=== PATIENT | female | born 1950 | race Caucasian/White ===

== ENCOUNTER 2020-02-16 09:28 | Outpatient (REF) | payer OTHER, SELFPAY ==
[2020-02-16 11:30] LABS: MANUAL DIFF FLAG NO
[2020-02-16 11:50] LABS: Basophils Absolute Auto 0.1 X10*3/uL (0.0-0.2); Basophils Percent Auto 0.7 % (0-2); Eosinophils Absolute Auto 0.3 X10*3/uL (0.0-0.4); Eosinophils Percent Auto 3.2 % (0-4); Hematocrit 42.3 % (37-47); Hemoglobin 13.1 g/dl (12.0-16.0); Imm Gran Abs Auto 0.07 X10*3/uL (0.00-0.03); Imm Gran Pct Auto 0.8 % (0.0-0.4); Lymphocytes Absolute Auto 1.4 X10*3/uL (1.2-4.9); Lymphocytes Percent Auto 15.3 % (20-40); Mean Corpuscular Volume 96.8 fL (80-98); Mean Platelet Volume 12.3 fL (9.4-12.3); Monocytes Absolute Auto 0.6 X10*3/uL (0.1-1.2); Neutrophils Absolute Auto 6.8 X10*3/uL (2.0-8.3); Platelet Count 213 X10*3/uL (160-400); Red Blood Count 4.37 X10*6/uL (4.20-5.50); Red Cell Distribution Width 13.5 % (11.0-16.0); White Blood Count 9.1 X10*3/uL (4.8-10.8)
== END 2020-02-16 09:29 | disposition home or self-care (01) ==
LOC: HO.LAB 09:28
PROVIDERS: PCP Internal Medicine; Visit Provider Internal Medicine Pulmonary Disease
DX: J44.9 Chronic obstructive pulmonary disease, unspecified (principal); Z91.09 Other allergy status, other than to drugs and biological substances; G47.33 Obstructive sleep apnea (adult) (pediatric)
CPT/HCPCS: 36415; 82785; 85025; 86003

== ENCOUNTER → 2020-05-11 08:35 | Outpatient (BNVA) | payer OTHER, SELFPAY | PROVIDERS: PCP Internal Medicine; Visit Provider Internal Medicine Pulmonary Disease ==

== ENCOUNTER → 2020-06-15 08:52 | Outpatient (BNVA) | payer OTHER, SELFPAY | PROVIDERS: PCP Internal Medicine; Visit Provider Internal Medicine Pulmonary Disease ==

== ENCOUNTER → 2020-10-20 09:05 | Outpatient (BNVA) | payer OTHER, SELFPAY | PROVIDERS: PCP Internal Medicine; Visit Provider Internal Medicine Pulmonary Disease ==

== ENCOUNTER → 2021-05-17 13:00 | Outpatient (BNVA) | payer OTHER, SELFPAY | PROVIDERS: PCP Internal Medicine; Visit Provider Internal Medicine Pulmonary Disease ==

== ENCOUNTER → 2021-11-22 12:51 | Outpatient (BNVA) | payer OTHER, SELFPAY | PROVIDERS: PCP Internal Medicine; Visit Provider Internal Medicine Pulmonary Disease | DX: J45.50 Severe persistent asthma, uncomplicated (principal); Z91.09 Other allergy status, other than to drugs and biological substances | CPT/HCPCS: 94640 ==

== ENCOUNTER 2022-04-04 12:48 | Outpatient (REF) | payer OTHER, SELFPAY ==
[2022-04-04 13:39] LABS: MANUAL DIFF FLAG NO
[2022-04-04 13:50] LABS: Basophils Absolute Auto 0.1 X10*3/uL (0.0-0.2); Basophils Percent Auto 0.7 % (0-2); Eosinophils Absolute Auto 0.2 X10*3/uL (0.0-0.4); Hemoglobin 13.5 g/dl (12.0-16.0); Imm Gran Abs Auto 0.02 X10*3/uL (0.00-0.03); Imm Gran Pct Auto 0.2 % (0.0-0.4); Lymphocytes Absolute Auto 1.6 X10*3/uL (1.2-4.9); Lymphocytes Percent Auto 18.6 % (20-40); Mean Corpuscular HGB Conc 31.4 g/dl (31.0-35.0); Mean Corpuscular Hemoglobin 30.5 pg (27.0-33.0); Mean Corpuscular Volume 97.1 fL (80.0-98.0); Mean Platelet Volume 11.5 fL (9.4-12.3); Monocytes Absolute Auto 0.7 X10*3/uL (0.1-1.2); Monocytes Percent Auto 7.5 % (2-11); Neutrophils Absolute Auto 6.3 x10*3/uL (2.0-8.3); Platelet Count 221 X10*3/uL (160-400); Red Blood Count 4.43 X10*6/uL (4.20-5.50); Red Cell Distribution Width 13.3 % (11.0-16.0); White Blood Count 8.8 X10*3/uL (4.8-10.8)
== END 2022-04-04 12:49 | disposition home or self-care (01) ==
LOC: HO.LAB 12:48
PROVIDERS: PCP Internal Medicine; Visit Provider Internal Medicine Pulmonary Disease
DX: J45.50 Severe persistent asthma, uncomplicated (principal); Z91.09 Other allergy status, other than to drugs and biological substances
CPT/HCPCS: 36415; 82785; 85025; 86003

== ENCOUNTER 2022-05-05 12:23 | Outpatient (REF) | payer OTHER, SELFPAY | END 2022-05-05 12:24 | disposition home or self-care (01) | LOC: HO.MDS 12:23 | PROVIDERS: Visit Provider Internal Medicine Pulmonary Disease | DX: J45.50 Severe persistent asthma, uncomplicated (principal) | CPT/HCPCS: 96372; J2357 ==

== ENCOUNTER 2022-06-02 14:46 | Outpatient (REF) | payer OTHER, SELFPAY | END 2022-06-02 14:47 | disposition home or self-care (01) | LOC: HO.MDS 14:46 | PROVIDERS: Visit Provider Internal Medicine Pulmonary Disease | DX: J45.50 Severe persistent asthma, uncomplicated (principal) | CPT/HCPCS: 96372; J2357 ==

== ENCOUNTER 2022-06-30 14:43 | Outpatient (REF) | payer OTHER, SELFPAY | END 2022-06-30 14:44 | disposition home or self-care (01) | LOC: HO.MDS 14:43 | PROVIDERS: Visit Provider Internal Medicine Pulmonary Disease | DX: J45.50 Severe persistent asthma, uncomplicated (principal) | CPT/HCPCS: 96372; J2357 ==

== ENCOUNTER 2022-07-28 14:52 | Outpatient (REF) | payer OTHER, SELFPAY | END 2022-07-28 14:53 | disposition home or self-care (01) | LOC: HO.MDS 14:52 | PROVIDERS: Visit Provider Internal Medicine Pulmonary Disease | DX: J45.50 Severe persistent asthma, uncomplicated (principal) | CPT/HCPCS: 96372; J2357 ==

== ENCOUNTER 2022-08-25 14:49 | Outpatient (REF) | payer OTHER, SELFPAY | END 2022-08-25 14:50 | disposition home or self-care (01) | LOC: HO.MDS 14:49 | PROVIDERS: Visit Provider Internal Medicine Pulmonary Disease | DX: J45.50 Severe persistent asthma, uncomplicated (principal) | CPT/HCPCS: 96372; J2357 ==

== ENCOUNTER → 2022-08-29 08:54 | Outpatient (BNVA) | payer OTHER, SELFPAY | PROVIDERS: PCP Internal Medicine; Visit Provider Internal Medicine Pulmonary Disease | DX: J45.50 Severe persistent asthma, uncomplicated (principal); Z91.09 Other allergy status, other than to drugs and biological substances ==

== ENCOUNTER 2022-09-28 10:02 | Outpatient (AMB) | payer OTHER, SELFPAY ==
--- NOTE | 2022-09-28 10:09 | MHC.OFFVIS ---
Intake Vital Signs 09/28/22 10:11 Height 5 ft 5 in Weight 200 lb BMI 33.3 BP 112/80 Pulse 102 H Pulse Oximetry (%) 93 Intake Visit Reasons: COPD Intake Note: pt was on a 7 day course of prednisone and was advice to stop injections. she continues to use advair and her O2 STAT have been 93-95. Allergies No Known Allergies Allergy (Verified 09/28/22 10:10) HPI COPD HPI Details 72-year-old lady nonsmoker, followed for mild CINDY intolerant of CPAP, dyspnea on exertion, diastolic dysfunction, environmental allergies, and moderate persistent asthma.? She continues to use Advair 500, albuterol MDI, Singulair, and Flonase with reasonable baseline control of his symptoms.? She had negative cardiac workup.? Patient was tried on Xolair, however she derived no symptomatic benefit and discontinued it. After the last office visit patient was started on hydroxyzine for air trapping with significant improvement in her symptoms. Review of Systems Const Denies daytime sleepiness, Denies excessive sweating, Denies fatigue, Denies fever(s), Denies lethargy, Denies malaise, Denies night sweats, Denies snoring and Denies weight loss Eyes Denies blurry vision and Denies itchy eyes ENT Denies nasal congestion, Denies post nasal drip, Denies sinus pain, Denies sinus pressure and Denies other ( Thrush) Card Denies chest pain, Denies pedal edema, Denies dyspnea, Denies orthopnea and Denies paroxysmal nocturnal dyspnea Resp Denies cough, Denies hemoptysis, Denies excessive phlegm production, Denies dyspnea, Denies snoring and Denies wheezing GI Denies abdominal pain and Denies heartburn Musc Denies myalgias, Denies arthralgias and Denies joint swelling Skin/Breast Denies rash Neuro Denies memory loss and Denies seizure-like activity Psych Denies abnormal sleep pattern, Denies anxiety and Denies memory loss Endo Denies excessive sweating, Denies fatigue and Denies heat intolerance Joe/Lymph Denies easy bruising Aller/Immun Denies itchy eyes, Denies seasonal rhinorrhea and Denies wheezing Physical Exam Vital Signs: Last Vital Signs Pulse 102 H 09/28/22 10:11 BP 112/80 09/28/22 10:11 Pulse Ox 93 09/28/22 10:11 BMI result Body Mass Index 33.3 Const General: no acute distress and alert Nutritional Appearance: obese Orientation/consciousness: Other orientation findings ( oriented) HEENT Head: Yes atraumatic Eyes General: appearance normal, both eyes and all related structures Sclerae: sclerae normal EOM: EOMs intact bilaterally Neck Neck: Yes supple Lymphatic: no lymphadenopathy noted Resp Effort & Inspection: normal respiratory effort and no use of accessory muscles Auscultation: clear to auscultation bilaterally Cardio Rate: regular rate Rhythm: regular rhythm Heart sounds: no gallops, no murmurs and no rubs Skin General skin exam: other ( warm) Extrem General: No clubbing, No cyanosis and No edema Assessment & Plan Assessment & Plan (1) Severe persistent asthma: Code(s): J45.50 - Severe persistent asthma, uncomplicated Plan: Significantly improved control with improvement in atropine on hydroxyzine. Continue Advair, duo nebs, and albuterol MDI. (2) Environmental allergies: Code(s): Z91.09 - Other allergy status, other than to drugs and biological substances Plan: No response to Xolair. Continue on Singulair. Coding Level of Care Code Est Pt Level 4 (49438) Diagnoses Severe persistent asthma J45.50 Environmental allergies Z91.09
[2022-09-28 10:11] VITALS: BP 112/80; PULSE 102; O2SAT 93; BMI 33.3
== END 2022-09-28 11:18 | disposition home or self-care (01) ==
PROVIDERS: PCP Internal Medicine; Visit Provider Internal Medicine Pulmonary Disease
DX: J45.50 Severe persistent asthma, uncomplicated (principal); Z91.09 Other allergy status, other than to drugs and biological substances
CPT/HCPCS: 99214

== ENCOUNTER → 2022-09-28 10:02 | Outpatient (BNVA) | payer OTHER, SELFPAY | PROVIDERS: PCP Internal Medicine; Visit Provider Internal Medicine Pulmonary Disease | DX: J45.50 Severe persistent asthma, uncomplicated (principal); Z91.09 Other allergy status, other than to drugs and biological substances ==

== ENCOUNTER 2023-04-05 13:24 | Outpatient (AMB) | payer OTHER, SELFPAY ==
[2023-04-05 13:34] VITALS: BP 116/62; PULSE 78; O2SAT 93; BMI 30.6
--- NOTE | 2023-04-05 13:34 | MHC.OFFVIS ---
Intake Vital Signs 04/05/23 13:34 Height 5 ft 5 in Weight 184 lb 1.376 oz BMI 30.6 BP 116/62 Blood Pressure Location Lt brachial Position Sitting Pulse 78 Pulse Source Pulse Oximeter Pulse Oximetry (%) 93 Oxygen Delivery Method Room Air Intake Visit Reasons: COPD Ocean Fishing Guide Required: No Fur Blowing Machine Attendant: Fur Blowing Machine Attendant offered & declined Accompanied by: Self / Same As Patient Allergies No Known Allergies Allergy (Verified 04/05/23 13:38) Medication List - Last Reconciled 04/05/23 by Yulia Carrasco LPN albuterol sulfate 90 mcg/actuation 2 puffs PO Q6H PRN escitalopram oxalate 5 mg PO DAILY fluticasone propion-salmeterol 500-50 mcg/dose (Advair Diskus) 1 ea PO BID fluticasone propionate 50 mcg/actuation 1 spray intranasal DAILY hydrochlorothiazide 25 mg PO DAILY ipratropium-albuterol 0.5 mg-3 mg(2.5 mg base)/3 mL 3 mL inhalation Q4-6H PRN 30 days lorazepam 0.5 mg PO DAILY PRN montelukast 10 mg PO DAILY HPI COPD HPI Details 72-year-old lady nonsmoker, followed for mild CINDY intolerant of CPAP, dyspnea on exertion, diastolic dysfunction, environmental allergies, and moderate persistent asthma.? She continues to use Advair 500, albuterol MDI, Singulair, and Flonase with good control of his symptoms.? She had negative cardiac workup.? Patient was tried on Xolair, however she derived no symptomatic benefit and discontinued it. After the last office visit she is intentionally lost 20 lb by dieting with significant improvement in her respiratory symptoms. She denies any recent exacerbations. PENDING SALE TO [facility] Social History (Updated 04/05/23 @ 13:42 by Yulia Carrasco LPN) Patient Tobacco Use Status: Former Tobacco user Tobacco use type: Cigarette Review of Systems Const Denies daytime sleepiness, Denies excessive sweating, Denies fatigue, Denies fever(s), Denies lethargy, Denies malaise, Denies night sweats, Denies snoring and Denies weight loss Eyes Denies blurry vision and Denies itchy eyes ENT Denies nasal congestion, Denies post nasal drip, Denies sinus pain, Denies sinus pressure and Denies other ( Thrush) Card Denies chest pain, Denies pedal edema, Denies dyspnea, Denies orthopnea and Denies paroxysmal nocturnal dyspnea Resp Denies cough, Denies hemoptysis, Denies excessive phlegm production, Denies dyspnea, Denies snoring and Denies wheezing GI Denies abdominal pain and Denies heartburn Musc Denies myalgias, Denies arthralgias and Denies joint swelling Skin/Breast Denies rash Neuro Denies memory loss and Denies seizure-like activity Psych Denies abnormal sleep pattern, Denies anxiety and Denies memory loss Endo Denies excessive sweating, Denies fatigue and Denies heat intolerance Joe/Lymph Denies easy bruising Aller/Immun Denies itchy eyes, Denies seasonal rhinorrhea and Denies wheezing Physical Exam Vital Signs: Last Vital Signs Pulse 78 04/05/23 13:34 BP 116/62 04/05/23 13:34 Pulse Ox 93 04/05/23 13:34 Oxygen Delivery Method Room Air 04/05/23 13:34 BMI result Body Mass Index 30.6 Const General: no acute distress and alert Nutritional Appearance: not obese Orientation/consciousness: Other orientation findings ( oriented) HEENT Head: Yes atraumatic Eyes General: appearance normal, both eyes and all related structures Sclerae: sclerae normal EOM: EOMs intact bilaterally Neck Neck: Yes supple Lymphatic: no lymphadenopathy noted Resp Effort & Inspection: normal respiratory effort and no use of accessory muscles Auscultation: clear to auscultation bilaterally Cardio Rate: regular rate Rhythm: regular rhythm Heart sounds: no gallops, no murmurs and no rubs Skin General skin exam: other ( warm) Extrem General: No clubbing, No cyanosis and No edema Assessment & Plan Assessment & Plan (1) Severe persistent asthma: Code(s): J45.50 - Severe persistent asthma, uncomplicated Plan: Well controlled on current regimen of Advair, duo nebs, and albuterol MDI. Continue current regimen. Coding Level of Care Code Est Pt Level 3 (40243) Diagnoses Severe persistent asthma J45.50
== END 2023-04-05 13:51 | disposition home or self-care (01) ==
PROVIDERS: PCP Internal Medicine; Visit Provider Internal Medicine Pulmonary Disease
DX: J45.50 Severe persistent asthma, uncomplicated (principal)
CPT/HCPCS: 99213

== ENCOUNTER → 2023-04-05 13:24 | Outpatient (BNVA) | payer OTHER, SELFPAY | PROVIDERS: PCP Internal Medicine; Visit Provider Internal Medicine Pulmonary Disease | DX: J45.50 Severe persistent asthma, uncomplicated (principal); Z91.09 Other allergy status, other than to drugs and biological substances ==

== ENCOUNTER 2023-10-05 13:02 | Outpatient (AMB) | payer OTHER, SELFPAY ==
[2023-10-05 13:08] VITALS: BP 138/79; PULSE 85; O2SAT 90; BMI 27.8
--- NOTE | 2023-10-05 13:08 | A.OFFVIS_ITS ---
Vital Signs 10/05/23 13:08 Height 5 ft 5 in Weight 167 lb BMI 27.8 BP 138/79 Blood Pressure Location Rt brachial Position Sitting Pulse 85 Pulse Source Doppler Pulse Oximetry (%) 90 L Oxygen Delivery Method Room Air Intake Visit Reasons: COPD Allergies No Known Allergies Allergy (Verified 04/05/23 13:38) HPI HPI COPD: Details: 73-year-old lady nonsmoker, followed for mild CINDY intolerant of CPAP, dyspnea on exertion, diastolic dysfunction, environmental allergies, and moderate persistent asthma.? She continues to use Advair 500, albuterol MDI, Singulair, and Flonase with good control of his symptoms.? She had negative cardiac workup.? Patient was tried on Xolair, however she derived no symptomatic benefit and discontinued it. She continues to intentional is rate common approximately 35 lb. His symptoms are well controlled on Wixela, duo nebs, and albuterol MDI. [facility] Social History (Updated 04/05/23 @ 13:42 by Yulia Carrasco LPN) Patient Tobacco Use Status: Former Tobacco user Tobacco use type: Cigarette Review of Systems Const Denies daytime sleepiness, Denies excessive sweating, Denies fatigue, Denies fever(s), Denies lethargy, Denies malaise, Denies night sweats, Denies snoring and Denies weight loss Eyes Denies blurry vision and Denies itchy eyes ENT Denies nasal congestion, Denies post nasal drip, Denies sinus pain, Denies sinus pressure and Denies other ( Thrush) Card Denies chest pain, Denies pedal edema, Denies dyspnea, Denies orthopnea and Denies paroxysmal nocturnal dyspnea Resp Denies cough, Denies hemoptysis, Denies excessive phlegm production, Denies dyspnea, Denies snoring and Denies wheezing GI Denies abdominal pain and Denies heartburn Musc Denies myalgias, Denies arthralgias and Denies joint swelling Skin/Breast Denies rash Neuro Denies memory loss and Denies seizure-like activity Psych Denies abnormal sleep pattern, Denies anxiety and Denies memory loss Endo Denies excessive sweating, Denies fatigue and Denies heat intolerance Joe/Lymph Denies easy bruising Aller/Immun Denies itchy eyes, Denies seasonal rhinorrhea and Denies wheezing Physical Exam Vital Signs: Last Vital Signs Pulse 85 10/05/23 13:08 BP 138/79 10/05/23 13:08 Pulse Ox 90 L 10/05/23 13:08 Oxygen Delivery Method Room Air 10/05/23 13:08 BMI result Body Mass Index 27.8 Const General: no acute distress and alert Nutritional Appearance: not obese Orientation/consciousness: Other orientation findings ( oriented) HEENT Head: Yes atraumatic Eyes General: appearance normal, both eyes and all related structures Sclerae: sclerae normal EOM: EOMs intact bilaterally Neck Neck: Yes supple Lymphatic: no lymphadenopathy noted Resp Effort & Inspection: normal respiratory effort and no use of accessory muscles Auscultation: clear to auscultation bilaterally Cardio Rate: regular rate Rhythm: regular rhythm Heart sounds: no gallops, no murmurs and no rubs Skin General skin exam: other ( warm) Extrem General: No clubbing, No cyanosis and No edema Assessment & Plan Assessment & Plan (1) Severe persistent asthma: Code(s): J45.50 - Severe persistent asthma, uncomplicated Category: Medical Plan: Well controlled on Wixela, duo nebs, and albuterol MDI. Continue current regimen. (2) Environmental allergies: Code(s): Z91.09 - Other allergy status, other than to drugs and biological substances Category: Medical Plan: Continue on Singulair. (3) CINDY (obstructive sleep apnea): Code(s): G47.33 - Obstructive sleep apnea (adult) (pediatric) Category: Medical Plan: Intolerant of CPAP. Jaw advancement devices discussed. Coding Level of Care Code Est Pt Level 4 (84147) Diagnoses Severe persistent asthma J45.50 Environmental allergies Z91.09 CINDY (obstructive sleep apnea) G47.33
== END 2023-10-05 13:59 | disposition home or self-care (01) ==
PROVIDERS: PCP Internal Medicine; Visit Provider Internal Medicine Pulmonary Disease
DX: J45.50 Severe persistent asthma, uncomplicated (principal); Z91.09 Other allergy status, other than to drugs and biological substances; G47.33 Obstructive sleep apnea (adult) (pediatric)
CPT/HCPCS: 99214

== ENCOUNTER → 2023-10-05 13:02 | Outpatient (BNVA) | payer OTHER, SELFPAY | PROVIDERS: PCP Internal Medicine; Visit Provider Internal Medicine Pulmonary Disease | DX: J45.50 Severe persistent asthma, uncomplicated (principal); Z91.09 Other allergy status, other than to drugs and biological substances ==

== ENCOUNTER 2024-05-15 14:10 | Outpatient (AMB) | payer OTHER, SELFPAY ==
[2024-05-15 14:14] VITALS: BP 137/86; PULSE 102; O2SAT 92; BMI 27.8
--- NOTE | 2024-05-15 14:14 | A.OFFVIS_ITS ---
Vital Signs 05/15/24 14:14 Height 5 ft 5 in Weight 167 lb BMI 27.8 BP 137/86 Blood Pressure Location Lt brachial Position Sitting Pulse 102 H Pulse Source Doppler Pulse Oximetry (%) 92 Oxygen Delivery Method Room Air Comment Verbal weight ( patient refused to get on scale) Intake Visit Reasons: cough and wheeze Allergies No Known Allergies Allergy (Verified 05/15/24 14:19) HPI HPI cough and wheeze: Details: 73-year-old lady nonsmoker, followed for mild CINDY intolerant of CPAP, dyspnea on exertion, diastolic dysfunction, environmental allergies, and moderate persistent asthma.? She continues to use Advair 500, albuterol MDI, Singulair, and Flonase with good control of her symptoms.? She had negative cardiac workup.? Patient was tried on Xolair, however she derived no symptomatic benefit and discontinued it. Her symptoms at baseline are well controlled on Wixela, duo nebs, and albuterol MDI. DC complains of acute bronchitic exacerbation symptomatic with cough and wheezing. [facility], [facility] Social History (Updated 04/05/23 @ 13:42 by Yulia Carrasco LPN) Patient Tobacco Use Status: Former Tobacco user Tobacco use type: Cigarette Review of Systems Const Denies daytime sleepiness, Denies excessive sweating, Denies fatigue, Denies fever(s), Denies lethargy, Denies malaise, Denies night sweats, Denies snoring and Denies weight loss Eyes Denies blurry vision and Denies itchy eyes ENT Denies nasal congestion, Denies post nasal drip, Denies sinus pain, Denies sinus pressure and Denies other ( Thrush) Card Denies chest pain, Denies pedal edema, Denies dyspnea, Denies orthopnea and Den ies paroxysmal nocturnal dyspnea Resp Reports cough, Denies hemoptysis, Reports excessive phlegm production, Denies dyspnea, Denies snoring and Reports wheezing GI Denies abdominal pain and Denies heartburn Musc Denies myalgias, Denies arthralgias and Denies joint swelling Skin/Breast Denies rash Neuro Denies memory loss and Denies seizure-like activity Psych Denies abnormal sleep pattern, Denies anxiety and Denies memory loss Endo Denies excessive sweating, Denies fatigue and Denies heat intolerance Joe/Lymph Denies easy bruising Aller/Immun Denies itchy eyes, Denies seasonal rhinorrhea and Reports wheezing Physical Exam Vital Signs: Last Vital Signs Pulse 102 H 05/15/24 14:14 BP 137/86 05/15/24 14:14 Pulse Ox 92 05/15/24 14:14 Oxygen Delivery Method Room Air 05/15/24 14:14 BMI result Body Mass Index 27.8 Const General: no acute distress and alert Nutritional Appearance: not obese Orientation/consciousness: Other orientation findings ( oriented) HEENT Head: Yes atraumatic Eyes General: appearance normal, both eyes and all related structures Sclerae: sclerae normal EOM: EOMs intact bilaterally Neck Neck: Yes supple Lymphatic: no lymphadenopathy noted Resp Effort & Inspection: normal respiratory effort and no use of accessory muscles Auscultation: wheezes (Expiratory bilateral) Cardio Rate: regular rate Rhythm: regular rhythm Heart sounds: no gallops, no murmurs and no rubs Skin General skin exam: other ( warm) Extrem General: No clubbing, No cyanosis and No edema Assessment & Plan Assessment & Plan (1) Severe persistent asthma: Code(s): J45.50 - Severe persistent asthma, uncomplicated Category: Medical Plan: Baseline controlled on Wixela, duo nebs, and albuterol MDI. Continue current regimen. Now with bronchitic exacerbation, will treat with a course of prednisone and azithromycin. (2) Environmental allergies: Code(s): Z91.09 - Other allergy status, other than to drugs and biological substances Category: Medical Plan: Baseline controlled on Singulair and Flonase. Continue current regimen. Medications: New azithromycin For 250 mg dose pack: take 500 mg today (day 1), then 250 mg for 4 days (days 2-5) PO 6 tabs 0RF prednisone 40 mg (2 x 20 mg) PO DAILY 10 tabs 0RF Coding Level of Care Code Est Pt Level 4 (31038) Diagnoses Severe persistent asthma J45.50 Environmental allergies Z91.09
--- OUTSIDE RECORDS SUMMARY | 2024-05-15 17:24 | XMS_ITS ---
Author Organization [facility] Address [address] [place] [address] Care Team Providers Care Acute Care Physical Therapist Name Role Phone TALHA, PARKER Gil [phone] REASON FOR VISIT 6 week f/u Encounters Encounter Location Date Provider Diagnosis [facility] [address] [place] [address] 05/08/2024 PARKER PALENCIA PLAN OF TREATMENT Next Appt Details Provider Name:PARKER PALENCIA, 0 09/16/2024 10:00:00 AM, [address], [place], [address], Progress Notes * Yulia DENNIS MDOB: 9 (73 yo F)Acc No.[id number]:05/08/2024 Patient:??Yulia DENNIS Provider:??PARKER PALENCIA PA-C :1950?Age:73 Y?Sex:Fe male Date:05/08/2024 Address:[address] [place] [address] [phone] Subjective: * Chief Complaints: * ?1. 6 week f/u. * Medical History:?? Objective: Assessment: Plan: * Treatment: * Images: Billing Information: * Visit Code:?? * Procedure Codes:?? * Sign off status: Pending * Provider:??PARKER PALENCIA PA-C Date:??04/13
--- OUTSIDE RECORDS SUMMARY | 2024-05-15 17:24 | XMS_ITS ---
Author Organization [facility] Address [address] [place] [address] Care Team Providers Care Practicing Md Anesthesiologist Name Role Phone PARKER PALENCIA Unavailable [phone] REASON FOR REFERRAL Diagnosis 1 Carotid stenosis, bi lateral (I65.23) Referral Organization [facility] Referring Provider First Name HANANE Referring Provider Last Name DAYRON Referring Provider Speciality Internal M edicine Referred Provider Specialty Vascular Sera dionicio General Notes MUNA WILDA 05/09 10:44:46 AM > referral faxed [phone] Clinical Notes Jerry Betancur 07/2024 01:56:36 PM > Scheduled for 06/02 at 9 am. Pt aware Referral Priority Routine REASON FOR VISIT Referral Encounters Encounter Location Date Provider Diagnosis [facility] [address] [place] [address] 05/09/2024 PARKER PALENCIA PLAN OF TREATMENT Referrals Referral Date Details Next Appt Details Provider Name:PARKER PALENCIA, 0 09/16/2024 10:00:00 AM, [address], [place], [address], Progress Notes * Yulia DENNIS MDOB: 9 (73 yo F)Acc No.[id number]:05/09/2024 Patient:??Yulia DENNIS :1950?Age:73 Y?Sex:Fe male Address:[address] [place] [address], [place] [address] Subjective: * Chief Complaints: * ?Referral * Medical History:?? * Surgical History:?? * Hospitalization/Major Diagno stic Procedure:?? * Medications:?? Objective: Assessment: Plan: * Treatment: * Procedure Codes:?? * true * Date:?? Consultation Request Notes Referral Date Referring Provider Referred Provider Not 05/09/2024 HANANE PADGETT ,
--- OUTSIDE RECORDS SUMMARY | 2024-05-15 17:24 | XMS_ITS ---
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 Previous weight was 167.1lbs, current weight is standing at 169.1lbs. No acute concerns needed to be addressed MEDICATIONS Medication SIG (Take, Route, Frequency, Duration) Notes Start Date End Date Status buPROPion HCl ER (XL) 150 MG 1 tablet in the morning Orally Once a day for 30 day(s) 03/25/2024 Active Montelukast Sodium 10 MG 1 tablet Orally Once a day Active Losartan Potassium 50 MG TAKE 1 TABLET B Y MOUTH EVERY DAY FOR 90 DAYS for 90 Active hydroCHLOROthiazide 25 MG TAKE 1 TABLET BY MOUTH EVERY DAY IN THE MORNING FOR 90 DAYS for 90 Active Escitalopram Oxalate 20 MG TAKE 1 TABLET BY MOUTH EVERY DAY IN THE MORNING DIRECTED Oral for 90 Days Active Vitamin D 50 MCG (2000 UT) 1 capsule Ora lly Once a day for 90 days Active LORazepam 0.5 MG 1 tablet at bedtime as needed as needed Active Multivitamin - 1 tablet Orally Once a day Active Advair Diskus 500-50 MCG/ACT 1 puff Inha lation Twice a day Active Albuterol Sulfate HFA 108 (9 0 Base) MCG/ACT 1 puff as needed Inhalation every 4 hrs Active Gemtesa Active PROBLEMS Problem Type ICD Code Onset Dates Problem Status W/U Status Risk SNOMED Code Notes Problem Hypertension, essential (I10) Active confirmed Essential hypertension (50509637) Problem Asthma (J45.909) Active confirmed Asthma (800934706) Problem Sleep apnea in adult (G47.30) Active confirmed Sleep apnea (09780467) VITAL SIGNS Blood pressure systolic 120 mm Hg 03/25/19 25 Blood pressure diastolic 78 mm Hg 025 Heart Rate 109 /min 03/25/2024 Height 62 in 03/25/2024 Weight 169.1 lbs 03/25/2024 BMI 30.93 kg/m2 03/25/2024 Encounters Encounter Location Date Provider Diagnosis [facility] [address] [place] [address] 03/25/2024 PARKER TALHA BMI 30.0-30.9,adult Z68.30 ; Obesity (BMI 30-39.9) E66.9 ; Overactive bladder N32.81 ; Acute pain of left shoulder M25.512 ; Pain, joint, shoulder, right M25.511 ; Palpable mass of neck R22.1 ; Fatigue, unspecified type R53.83 and History of dizziness Z87.898 ASSESSMENTS Encounter Date Diagnosis Assessment Notes Treatment Notes Treatment Clinical Notes Section Notes 03/25/2024 BMI 30.0-30.9,adul t (ICD-10 - Z68.30) 10/03/2022: Weight 202.1, BMI 36.96 10/31/2022: Weight 202.1, BMI 36.96. Patient extensively educated on lifestyle modifications including high-protein foods, low carbohydrate snacks, healthy fats, sleep hygiene, stress reduction. Provided with educational documentation regarding all of this. Patient is interested in weight loss medications. I did extensively educate on the importance of lifestyle modifications high-protein, and resistance training as we age to avoid sarcopenia. Patient is understanding. Did discuss multiple options including Contrave, compounded semaglutide. Patient states that she is going to review the options, and decide what she wants to do by calling the office. Did educate that she should focus on lifestyle over the next 4 weeks, and we can reevaluate medication plan when she works on lifestyle. Goals for lifestyle is to eat out no more then twice weekly and exercise on treadmill atleast 3 times per week. 12/04/2022: Weight 194.4 pounds, BMI 35.55. Patient congratulated on effort. Having great success with weight loss over the past month, has lost 8 pounds. Patient is very pleased, working on sustainable lifestyle factors. Did educate on the importance of continue with lifestyle factors in conjunction with weight loss medications. She is interested would both prefer to wait until Wegovy/Saxenda become available. She is going to look into these options through her pharmacies. 01/11/2023: Weight 189.9, BMI 34.73. Patient congratulated on effort. Continuing to lose slow, steady weight loss. Goal weight to be between 150 and 160 pounds by her birthday in July. She is very pleased with her progress overall and is proud of the progress she is making with lifestyle changes only. Patient still does admit to a lack of energy. Has tried M ICC without great improvement. Discussed IV hydration therapy which she may consider. Educated on high-protein, water intake, and multivitamins. She is doing really well, still interested in medications but would like to wait until the national shortage is over. 02/12/2023: Weight 185.9, BMI 34. Patient congratulated on effort, continuing losing slow, successful weight. Body composition next visit. Patient is doing very well with portion control, and resistance training on her own. Encouraged to continue with lifestyle modifications only for weight loss. Is interested in zepbound for an additional push, is aware that if not available at this time, and she may need to fail a GLP-1 prior to, but will have more information mid-February, to potentially send out in 03/20/2023: Weight 180.2, BMI 32.96. Patient congratulated on effort, continue to lose slow, steady weight. Body composition reviewed showing fat loss, as well as muscle loss. Educated on high-protein, as well as resistance training to maintain muscle. No longer interested in injections/weight management medication, will continue with lifestyle 05/08/2023: Weight 176.8, BMI 32.33. Patient graduated an effort, lost 4 pounds since last visit. Has been trying to do well from a lifestyle modification, exercise still limited, but working on this. States that she likes visits every 4 weeks for accountability. Wants to continue with losing weight with lifestyle only. This was encouraged. 07/03/2023: Weight 170, BMI 31.22. Patient congratulated on effort, losing slow, steady weight. Trying to work on being more active but going to workup joint pain in the meantime. States that this has been limiting her. Otherwise, getting M ICC injection today. Declined body scan. 08/09/2023: Weight 169, BMI 30.94. Small weight changes since last visit discussed the importance of lifestyle, not interested in medication assistance, but discussed high-protein, and more consistent exercise. Patient understanding, will follow-up for physical in September, and weight management follow-up in October. Body scan reviewed today showing great improvement with 10 pounds of fat loss with 1 pound of muscle gain 09/11/2023: Weight 167, BMI 30.56. Patient congratulated and effort, doing very well with lifestyle, feels like it is sustainable. Losing slow, steady weight. 10/11/2023: Weight 168, BMI 30: Continue with lifestyle changes, implementing more protein, 11/14/2023: Weight 167 pounds. BMI 30. Continues to follow lifestyle modifications for weight loss. Expresses concern for increased fatigue and heat intolerance. Will recheck thyroid function. Discussed medical management with patient and she will hold off at this time until next follow-up in 4-6 weeks. 12/26/23: Weight 167, BMI 30: continue with lifestyle. patient at a pleateu, not interested in medications at this time, wants to due ot naturally which is encouraged. Labs WNL. 03/25/2024: Weight 169, BMI 30. Patient has continued to plateau since July. Heaviest weight was 202 pounds, so she is congratulated on effort overall. She is interested in potential medications. Avoiding GLP-1's due to low muscle mass and increased risk of sarcopenia. Did discuss Contrave, but patient would prefer to do Wellbutrin alone in combination with her already established Lexapro and lorazepam. Will start at 150 mg during the morning. Discussed proper use, side effects. If no improvement, could consider Contrave. 1. Episode of dizziness/visible carotid pulse. Will order carotid artery ultrasound. #Fatigue increased over last several weeks with associated heat intolerance. Patient has well-circumscribed solid oval thyroid nodule identified on US 10/25/23.Labs in December within normal limits. # Occasional numbness/tingling of her hand while she is sleeping. Does have a history of extensive typing. Most likely carpal tunnel at this time. Physical exam negative otherwise. Discussed bracing at night/posture while sleeping. # Patient does have bilateral shoulder pain. Declines red flag symptoms. Follow with orthopedics, no cartilage in left shoulder they recommended replacement, and getting MRI of the right shoulder. This limits her ability to exercise regularly. #Overactive bladder: Recently saw [employer]IC which discontinued tropsium 20 mg for overactive bladder, and started Gemtesa. Patient states that this is been working really well, trying to get authorization approved by [employer]. #Asthma: Patient following with Director Of Midwifery/Staff Midwife Dr. Quinonez at [facility]. Patient advised to continue Advair Diskus 500-50 MCG/ACT BID, Singular 10 mg qhs, & hydrOXYzine HCl 10 mg qd per peer support specialist's recommendation. Working on taking deep breaths. Filling up alveoli for gas exchange. CO2 mildly elevated #HTN: Advised to continue HydroCHLOROthiazide 25 mg qd and Losartan 50 mg qd.Monitor BP at home, adjust treatment as needed. Educated on the importance of blood pressure control. #VitaminDeficiency: The patient was advised to continue her vitamin D supplementation for her vitamin D deficiency. #Anxiety/Depression: Patient states that escitalopram 20 mg manages the depression well, but the anxiety persists to varying degrees.Patient states that she has been eating more emotionally since she lost one of her animals the New 's Day. #Low-density: Report from 02/2022 showed osteopenia of L hip with T score of -1.4. The lumbar spine was WNL with a T score of 1.8.Hesitant to use GLP-1's due to increased risk of sarcopenia. # Joint pain: ESR, CRP, Lyme negative. # Mammogram negative. # Joint pain: Following orthopedics, osteoarthritis, right shoulder, may be candidate for replacement. Patient to follow-up in 4 to 6 weeks for weight management, assess efficacy/compliance of initiating Wellbutrin for anxiety/depression as well as for weight loss. Time sent with patient 30 minutes or greater than 50% on patient occasion and care coronation. All quetsions answered to patients satisfaction. Patient verbalized understanding of diagnosis and treatments explained. To call sooner prior to next visit it any questions/concerns arise. Case discussed with collaborating physician Dl Quach who reviewed the assessment and plan. Chart, medications, labs, vital signs reviewed. Dictation was accomplished with the use of Dragon voice recognition software, prone to medical misidentifications and grammatical errors. This is unintentional and the practitioner does try to identify and correct these, but some could still be present. Please do not hesitate to contact practitioner for clarification. 03/25/2024 Obesity (BMI 30-39.9) (ICD-10 - E66.9) 10/03/2022: Weight 202.1, BMI 36.96 10/31/2022: Weight 202.1, BMI 36.96. Patient extensively educated on lifestyle modifications including high-protein foods, low carbohydrate snacks, healthy fats, sleep hygiene, stress reduction. Provided with educational documentation regarding all of this. Patient is interested in weight loss medications. I did extensively educate on the importance of lifestyle modifications high-protein, and resistance training as we age to avoid sarcopenia. Patient is understanding. Did discuss multiple options including Contrave, compounded semaglutide. Patient states that she is going to review the options, and decide what she wants to do by calling the office. Did educate that she should focus on lifestyle over the next 4 weeks, and we can reevaluate medication plan when she works on lifestyle. Goals for lifestyle is to eat out no more then twice weekly and exercise on treadmill atleast 3 times per week. 12/04/2022: Weight 194.4 pounds, BMI 35.55. Patient congratulated on effort. Having great success with weight loss over the past month, has lost 8 pounds. Patient is very pleased, working on sustainable lifestyle factors. Did educate on the importance of continue with lifestyle factors in conjunction with weight loss medications. She is interested would both prefer to wait until Wegovy/Saxenda become available. She is going to look into these options through her pharmacies. 01/11/2023: Weight 189.9, BMI 34.73. Patient congratulated on effort. Continuing to lose slow, steady weight loss. Goal weight to be between 150 and 160 pounds by her birthday in July. She is very pleased with her progress overall and is proud of the progress she is making with lifestyle changes only. Patient still does admit to a lack of energy. Has tried M ICC without great improvement. Discussed IV hydration therapy which she may consider. Educated on high-protein, water intake, and multivitamins. She is doing really well, still interested in medications but would like to wait until the national shortage is over. 02/12/2023: Weight 185.9, BMI 34. Patient congratulated on effort, continuing losing slow, successful weight. Body composition next visit. Patient is doing very well with portion control, and resistance training on her own. Encouraged to continue with lifestyle modifications only for weight loss. Is interested in zepbound for an additional push, is aware that if not available at this time, and she may need to fail a GLP-1 prior to, but will have more information mid-February, to potentially send out in 03/20/2023: Weight 180.2, BMI 32.96. Patient congratulated on effort, continue to lose slow, steady weight. Body composition reviewed showing fat loss, as well as muscle loss. Educated on high-protein, as well as resistance training to maintain muscle. No longer interested in injections/weight management medication, will continue with lifestyle 05/08/2023: Weight 176.8, BMI 32.33. Patient graduated an effort, lost 4 pounds since last visit. Has been trying to do well from a lifestyle modification, exercise still limited, but working on this. States that she likes visits every 4 weeks for accountability. Wants to continue with losing weight with lifestyle only. This was encouraged. 07/03/2023: Weight 170, BMI 31.22. Patient congratulated on effort, losing slow, steady weight. Trying to work on being more active but going to workup joint pain in the meantime. States that this has been limiting her. Otherwise, getting M ICC injection today. Declined body scan. 08/09/2023: Weight 169, BMI 30.94. Small weight changes since last visit discussed the importance of lifestyle, not interested in medication assistance, but discussed high-protein, and more consistent exercise. Patient understanding, will follow-up for physical in September, and weight management follow-up in October. Body scan reviewed today showing great improvement with 10 pounds of fat loss with 1 pound of muscle gain 09/11/2023: Weight 167, BMI 30.56. Patient congratulated and effort, doing very well with lifestyle, feels like it is sustainable. Losing slow, steady weight. 10/11/2023: Weight 168, BMI 30: Continue with lifestyle changes, implementing more protein, 11/14/2023: Weight 167 pounds. BMI 30. Continues to follow lifestyle modifications for weight loss. Expresses concern for increased fatigue and heat intolerance. Will recheck thyroid function. Discussed medical management with patient and she will hold off at this time until next follow-up in 4-6 weeks. 12/26/23: Weight 167, BMI 30: continue with lifestyle. patient at a pleateu, not interested in medications at this time, wants to due ot naturally which is encouraged. Labs WNL. 03/25/2024: Weight 169, BMI 30. Patient has continued to plateau since July. Heaviest weight was 202 pounds, so she is congratulated on effort overall. She is interested in potential medications. Avoiding GLP-1's due to low muscle mass and increased risk of sarcopenia. Did discuss Contrave, but patient would prefer to do Wellbutrin alone in combination with her already established Lexapro and lorazepam. Will start at 150 mg during the morning. Discussed proper use, side effects. If no improvement, could consider Contrave. 1. Episode of dizziness/visible carotid pulse. Will order carotid artery ultrasound. #Fatigue increased over last several weeks with associated heat intolerance. Patient has well-circumscribed solid oval thyroid nodule identified on US 10/25/23.Labs in December within normal limits. # Occasional numbness/tingling of her hand while she is sleeping. Does have a history of extensive typing. Most likely carpal tunnel at this time. Physical exam negative otherwise. Discussed bracing at night/posture while sleeping. # Patient does have bilateral shoulder pain. Declines red flag symptoms. Follow with orthopedics, no cartilage in left shoulder they recommended replacement, and getting MRI of the right shoulder. This limits her ability to exercise regularly. #Overactive bladder: Recently saw [employer] MECHANIC which discontinued tropsium 20 mg for overactive bladder, and started Gemtesa. Patient states that this is been working really well, trying to get authorization approved by [employer]. #Asthma: Patient following with Director Of Midwifery/Staff Midwife Dr. Quinonez at [facility]. Patient advised to continue Advair Diskus 500-50 MCG/ACT BID, Singular 10 mg qhs, & hydrOXYzine HCl 10 mg qd per peer support specialist's recommendation. Working on taking deep breaths. Filling up alveoli for gas exchange. CO2 mildly elevated #HTN: Advised to continue HydroCHLOROthiazide 25 mg qd and Losartan 50 mg qd.Monitor BP at home, adjust treatment as needed. Educated on the importance of blood pressure control. #VitaminDeficiency: The patient was advised to continue her vitamin D supplementation for her vitamin D deficiency. #Anxiety/Depression: Patient states that escitalopram 20 mg manages the depression well, but the anxiety persists to varying degrees.Patient states that she has been eating more emotionally since she lost one of her animals the New Year's Day. #Low-density: Report from 02/2022 showed osteopenia of L hip with T score of -1.4. The lumbar spine was WNL with a T score of 1.8.Hesitant to use GLP-1's due to increased risk of sarcopenia. # Joint pain: ESR, CRP, Lyme negative. # Mammogram negative. # Joint pain: Following orthopedics, osteoarthritis, right shoulder, may be candidate for replacement. Patient to follow-up in 4 to 6 weeks for weight management, assess efficacy/compliance of initiating Wellbutrin for anxiety/depression as well as for weight loss. Time sent with patient 30 minutes or greater than 50% on patient occasion and care coronation. All quetsions answered to patients satisfaction. Patient verbalized understanding of diagnosis and treatments explained. To call sooner prior to next visit it any questions/concerns arise. Case discussed with collaborating physician Dl Quach who reviewed the assessment and plan. Chart, medications, labs, vital signs reviewed. Dictation was accomplished with the use of [employer] voice recognition software, prone to medical misidentifications and grammatical errors. This is unintentional and the practitioner does try to identify and correct these, but some could still be present. Please do not hesitate to contact practitioner for clarification. 03/25/2024 Overactive bladder (ICD-10 - N32.81) 10/03/2022: Weight 202.1, BMI 36.96 10/31/2022: Weight 202.1, BMI 36.96. Patient extensively educated on lifestyle modifications including high-protein foods, low carbohydrate snacks, healthy fats, sleep hygiene, stress reduction. Provided with educational documentation regarding all of this. Patient is interested in weight loss medications. I did extensively educate on the importance of lifestyle modifications high-protein, and resistance training as we age to avoid sarcopenia. Patient is understanding. Did discuss multiple options including Contrave, compounded semaglutide. Patient states that she is going to review the options, and decide what she wants to do by calling the office. Did educate that she should focus on lifestyle over the next 4 weeks, and we can reevaluate medication plan when she works on lifestyle. Goals for lifestyle is to eat out no more then twice weekly and exercise on treadmill atleast 3 times per week. 12/04/2022: Weight 194.4 pounds, BMI 35.55. Patient congratulated on effort. Having great success with weight loss over the past month, has lost 8 pounds. Patient is very pleased, working on sustainable lifestyle factors. Did educate on the importance of continue with lifestyle factors in conjunction with weight loss medications. She is interested would both prefer to wait until Wegovy/Saxenda become available. She is going to look into these options through her pharmacies. 01/11/2023: Weight 189.9, BMI 34.73. Patient congratulated on effort. Continuing to lose slow, steady weight loss. Goal weight to be between 150 and 160 pounds by her birthday in July. She is very pleased with her progress overall and is proud of the progress she is making with lifestyle changes only. Patient still does admit to a lack of energy. Has tried M ICC without great improvement. Discussed IV hydration therapy which she may consider. Educated on high-protein, water intake, and multivitamins. She is doing really well, still interested in medications but would like to wait until the national shortage is over. 02/12/2023: Weight 185.9, BMI 34. Patient congratulated on effort, continuing losing slow, successful weight. Body composition next visit. Patient is doing very well with portion control, and resistance training on her own. Encouraged to continue with lifestyle modifications only for weight loss. Is interested in zepbound for an additional push, is aware that if not available at this time, and she may need to fail a GLP-1 prior to, but will have more information mid-February, to potentially send out in 03/20/2023: Weight 180.2, BMI 32.96. Patient congratulated on effort, continue to lose slow, steady weight. Body composition reviewed showing fat loss, as well as muscle loss. Educated on high-protein, as well as resistance training to maintain muscle. No longer interested in injections/weight management medication, will continue with lifestyle 05/08/2023: Weight 176.8, BMI 32.33. Patient graduated an effort, lost 4 pounds since last visit. Has been trying to do well from a lifestyle modification, exercise still limited, but working on this. States that she likes visits every 4 weeks for accountability. Wants to continue with losing weight with lifestyle only. This was encouraged. 07/03/2023: Weight 170, BMI 31.22. Patient congratulated on effort, losing slow, steady weight. Trying to work on being more active but going to workup joint pain in the meantime. States that this has been limiting her. Otherwise, getting M ICC injection today. Declined body scan. 08/09/2023: Weight 169, BMI 30.94. Small weight changes since last visit discussed the importance of lifestyle, not interested in medication assistance, but discussed high-protein, and more consistent exercise. Patient understanding, will follow-up for physical in September, and weight management follow-up in October. Body scan reviewed today showing great improvement with 10 pounds of fat loss with 1 pound of muscle gain 09/11/2023: Weight 167, BMI 30.56. Patient congratulated and effort, doing very well with lifestyle, feels like it is sustainable. Losing slow, steady weight. 10/11/2023: Weight 168, BMI 30: Continue with lifestyle changes, implementing more protein, 11/14/2023: Weight 167 pounds. BMI 30. Continues to follow lifestyle modifications for weight loss. Expresses concern for increased fatigue and heat intolerance. Will recheck thyroid function. Discussed medical management with patient and she will hold off at this time until next follow-up in 4-6 weeks. 12/26/23: Weight 167, BMI 30: continue with lifestyle. patient at a pleateu, not interested in medications at this time, wants to due ot naturally which is encouraged. Labs WNL. 03/25/2024: Weight 169, BMI 30. Patient has continued to plateau since July. Heaviest weight was 202 pounds, so she is congratulated on effort overall. She is interested in potential medications. Avoiding GLP-1's due to low muscle mass and increased risk of sarcopenia. Did discuss Contrave, but patient would prefer to do Wellbutrin alone in combination with her already established Lexapro and lorazepam. Will start at 150 mg during the morning. Discussed proper use, side effects. If no improvement, could consider Contrave. 1. Episode of dizziness/visible carotid pulse. Will order carotid artery ultrasound. #Fatigue increased over last several weeks with associated heat intolerance. Patient has well-circumscribed solid oval thyroid nodule identified on US 10/25/23.Labs in December within normal limits. # Occasional numbness/tingling of her hand while she is sleeping. Does have a history of extensive typing. Most likely carpal tunnel at this time. Physical exam negative otherwise. Discussed bracing at night/posture while sleeping. # Patient does have bilateral shoulder pain. Declines red flag symptoms. Follow with orthopedics, no cartilage in left shoulder they recommended replacement, and getting MRI of the right shoulder. This limits her ability to exercise regularly. #Overactive bladder: Recently saw [employer]IC which discontinued tropsium 20 mg for overactive bladder, and started Gemtesa. Patient states that this is been working really well, trying to get authorization approved by [employer] #Asthma: Patient following with Director Of Midwifery/Staff Midwife Dr. Quinonez at [facility]. Patient advised to continue Advair Diskus 500-50 MCG/ACT BID, Singular 10 mg qhs, & hydrOXYzine HCl 10 mg qd per peer support specialist's recommendation. Working on taking deep breaths. Filling up alveoli for gas exchange. CO2 mildly elevated #HTN: Advised to continue HydroCHLOROthiazide 25 mg qd and Losartan 50 mg qd.Monitor BP at home, adjust treatment as needed. Educated on the importance of blood pressure control. #VitaminDeficiency: The patient was advised to continue her vitamin D supplementation for her vitamin D deficiency. #Anxiety/Depression: Patient states that escitalopram 20 mg manages the depression well, but the anxiety persists to varying degrees.Patient states that she has been eating more emotionally since she lost one of her animals the New Year's Day. #Low-density: Report from 02/2022 showed osteopenia of L hip with T score of -1.4. The lumbar spine was WNL with a T score of 1.8.Hesitant to use GLP-1's due to increased risk of sarcopenia. # Joint pain: ESR, CRP, Lyme negative. # Mammogram negative. # Joint pain: Following orthopedics, osteoarthritis, right shoulder, may be candidate for replacement. Patient to follow-up in 4 to 6 weeks for weight management, assess efficacy/compliance of initiating Wellbutrin for anxiety/depression as well as for weight loss. Time sent with patient 30 minutes or greater than 50% on patient occasion and care coronation. All quetsions answered to patients satisfaction. Patient verbalized understanding of diagnosis and treatments explained. To call sooner prior to next visit it any questions/concerns arise. Case discussed with collaborating physician Dl Quach who reviewed the assessment and plan. Chart, medications, labs, vital signs reviewed. Dictation was accomplished with the use of [employer] voice recognition software, prone to medical misidentifications and grammatical errors. This is unintentional and the practitioner does try to identify and correct these, but some could still be present. Please do not hesitate to contact practitioner for clarification. 03/25/2024 Acute pain of left shoulder (ICD-10 - M25.512) 10/03/2022: Weight 202.1, BMI 36.96 10/31/2022: Weight 202.1, BMI 36.96. Patient extensively educated on lifestyle modifications including high-protein foods, low carbohydrate snacks, healthy fats, sleep hygiene, stress reduction. Provided with educational documentation regarding all of this. Patient is interested in weight loss medications. I did extensively educate on the importance of lifestyle modifications high-protein, and resistance training as we age to avoid sarcopenia. Patient is understanding. Did discuss multiple options including Contrave, compounded semaglutide. Patient states that she is going to review the options, and decide what she wants to do by calling the office. Did educate that she should focus on lifestyle over the next 4 weeks, and we can reevaluate medication plan when she works on lifestyle. Goals for lifestyle is to eat out no more then twice weekly and exercise on treadmill atleast 3 times per week. 12/04/2022: Weight 194.4 pounds, BMI 35.55. Patient congratulated on effort. Having great success with weight loss over the past month, has lost 8 pounds. Patient is very pleased, working on sustainable lifestyle factors. Did educate on the importance of continue with lifestyle factors in conjunction with weight loss medications. She is interested would both prefer to wait until Wegovy/Saxenda become available. She is going to look into these options through her pharmacies. 01/11/2023: Weight 189.9, BMI 34.73. Patient congratulated on effort. Continuing to lose slow, steady weight loss. Goal weight to be between 150 and 160 pounds by her birthday in July. She is very pleased with her progress overall and is proud of the progress she is making with lifestyle changes only. Patient still does admit to a lack of energy. Has tried M ICC without great improvement. Discussed IV hydration therapy which she may consider. Educated on high-protein, water intake, and multivitamins. She is doing really well, still interested in medications but would like to wait until the national shortage is over. 02/12/2023: Weight 185.9, BMI 34. Patient congratulated on effort, continuing losing slow, successful weight. Body composition next visit. Patient is doing very well with portion control, and resistance training on her own. Encouraged to continue with lifestyle modifications only for weight loss. Is interested in zepbound for an additional push, is aware that if not available at this time, and she may need to fail a GLP-1 prior to, but will have more information mid-February, to potentially send out in 03/20/2023: Weight 180.2, BMI 32.96. Patient congratulated on effort, continue to lose slow, steady weight. Body composition reviewed showing fat loss, as well as muscle loss. Educated on high-protein, as well as resistance training to maintain muscle. No longer interested in injections/weight management medication, will continue with lifestyle 05/08/2023: Weight 176.8, BMI 32.33. Patient graduated an effort, lost 4 pounds since last visit. Has been trying to do well from a lifestyle modification, exercise still limited, but working on this. States that she likes visits every 4 weeks for accountability. Wants to continue with losing weight with lifestyle only. This was encouraged. 07/03/2023: Weight 170, BMI 31.22. Patient congratulated on effort, losing slow, steady weight. Trying to work on being more active but going to workup joint pain in the meantime. States that this has been limiting her. Otherwise, getting M ICC injection today. Declined body scan. 08/09/2023: Weight 169, BMI 30.94. Small weight changes since last visit discussed the importance of lifestyle, not interested in medication assistance, but discussed high-protein, and more consistent exercise. Patient understanding, will follow-up for physical in September, and weight management follow-up in October. Body scan reviewed today showing great improvement with 10 pounds of fat loss with 1 pound of muscle gain 09/11/2023: Weight 167, BMI 30.56. Patient congratulated and effort, doing very well with lifestyle, feels like it is sustainable. Losing slow, steady weight. 10/11/2023: Weight 168, BMI 30: Continue with lifestyle changes, implementing more protein, 11/14/2023: Weight 167 pounds. BMI 30. Continues to follow lifestyle modifications for weight loss. Expresses concern for increased fatigue and heat intolerance. Will recheck thyroid function. Discussed medical management with patient and she will hold off at this time until next follow-up in 4-6 weeks. 12/26/23: Weight 167, BMI 30: continue with lifestyle. patient at a pleateu, not interested in medications at this time, wants to due ot naturally which is encouraged. Labs WNL. 03/25/2024: Weight 169, BMI 30. Patient has continued to plateau since July. Heaviest weight was 202 pounds, so she is congratulated on effort overall. She is interested in potential medications. Avoiding GLP-1's due to low muscle mass and increased risk of sarcopenia. Did discuss Contrave, but patient would prefer to do Wellbutrin alone in combination with her already established Lexapro and lorazepam. Will start at 150 mg during the morning. Discussed proper use, side effects. If no improvement, could consider Contrave. 1. Episode of dizziness/visible carotid pulse. Will order carotid artery ultrasound. #Fatigue increased over last several weeks with associated heat intolerance. Patient has well-circumscribed solid oval thyroid nodule identified on US 10/25/23.Labs in December within normal limits. # Occasional numbness/tingling of her hand while she is sleeping. Does have a history of extensive typing. Most likely carpal tunnel at this time. Physical exam negative otherwise. Discussed bracing at night/posture while sleeping. # Patient does have bilateral shoulder pain. Declines red flag symptoms. Follow with orthopedics, no cartilage in left shoulder they recommended replacement, and getting MRI of the right shoulder. This limits her ability to exercise regularly. #Overactive bladder: Recently saw [employer] MECHANIC which discontinued tropsium 20 mg for overactive bladder, and started Gemtesa. Patient states that this is been working really well, trying to get authorization approved by [employer]. #Asthma: Patient following with Director Of Midwifery/Staff Midwife Dr. Quinonez at [facility]. Patient advised to continue Advair Diskus 500-50 MCG/ACT BID, Singular 10 mg qhs, & hydrOXYzine HCl 10 mg qd per peer support specialist's recommendation. Working on taking deep breaths. Filling up alveoli for gas exchange. CO2 mildly elevated #HTN: Advised to continue HydroCHLOROthiazide 25 mg qd and Losartan 50 mg qd.Monitor BP at home, adjust treatment as needed. Educated on the importance of blood pressure control. #VitaminDeficiency: The patient was advised to continue her vitamin D supplementation for her vitamin D deficiency. #Anxiety/Depression: Patient states that escitalopram 20 mg manages the depression well, but the anxiety persists to varying degrees.Patient states that she has been eating more emotionally since she lost one of her animals the New ' Day. #Low-density: Report from 02/2022 showed osteopenia of L hip with T score of -1.4. The lumbar spine was WNL with a T score of 1.8.Hesitant to use GLP-1's due to increased risk of sarcopenia. # Joint pain: ESR, CRP, Lyme negative. # Mammogram negative. # Joint pain: Following orthopedics, osteoarthritis, right shoulder, may be candidate for replacement. Patient to follow-up in 4 to 6 weeks for weight management, assess efficacy/compliance of initiating Wellbutrin for anxiety/depression as well as for weight loss. Time sent with patient 30 minutes or greater than 50% on patient occasion and care coronation. All quetsions answered to patients satisfaction. Patient verbalized understanding of diagnosis and treatments explained. To call sooner prior to next visit it any questions/concerns arise. Case discussed with collaborating physician Dl Quach who reviewed the assessment and plan. Chart, medications, labs, vital signs reviewed. Dictation was accomplished with the use of [employer] voice recognition software, prone to medical misidentifications and grammatical errors. This is unintentional and the practitioner does try to identify and correct these, but some could still be present. Please do not hesitate to contact practitioner for clarification. 03/25/2024 Pain, joint, shoulder, right (ICD-10 - M25.511) 10/03/2022: Weight 202.1, BMI 36.96 10/31/2022: Weight 202.1, BMI 36.96. Patient extensively educated on lifestyle modifications including high-protein foods, low carbohydrate snacks, healthy fats, sleep hygiene, stress reduction. Provided with educational documentation regarding all of this. Patient is interested in weight loss medications. I did extensively educate on the importance of lifestyle modifications high-protein, and resistance training as we age to avoid sarcopenia. Patient is understanding. Did discuss multiple options including Contrave, compounded semaglutide. Patient states that she is going to review the options, and decide what she wants to do by calling the office. Did educate that she should focus on lifestyle over the next 4 weeks, and we can reevaluate medication plan when she works on lifestyle. Goals for lifestyle is to eat out no more then twice weekly and exercise on treadmill atleast 3 times per week. 12/04/2022: Weight 194.4 pounds, BMI 35.55. Patient congratulated on effort. Having great success with weight loss over the past month, has lost 8 pounds. Patient is very pleased, working on sustainable lifestyle factors. Did educate on the importance of continue with lifestyle factors in conjunction with weight loss medications. She is interested would both prefer to wait until Wegovy/Saxenda become available. She is going to look into these options through her pharmacies. 01/11/2023: Weight 189.9, BMI 34.73. Patient congratulated on effort. Continuing to lose slow, steady weight loss. Goal weight to be between 150 and 160 pounds by her birthday in July. She is very pleased with her progress overall and is proud of the progress she is making with lifestyle changes only. Patient still does admit to a lack of energy. Has tried M ICC without great improvement. Discussed IV hydration therapy which she may consider. Educated on high-protein, water intake, and multivitamins. She is doing really well, still interested in medications but would like to wait until the national shortage is over. 02/12/2023: Weight 185.9, BMI 34. Patient congratulated on effort, continuing losing slow, successful weight. Body composition next visit. Patient is doing very well with portion control, and resistance training on her own. Encouraged to continue with lifestyle modifications only for weight loss. Is interested in zepbound for an additional push, is aware that if not available at this time, and she may need to fail a GLP-1 prior to, but will have more information mid-February, to potentially send out in 03/20/2023: Weight 180.2, BMI 32.96. Patient congratulated on effort, continue to lose slow, steady weight. Body composition reviewed showing fat loss, as well as muscle loss. Educated on high-protein, as well as resistance training to maintain muscle. No longer interested in injections/weight management medication, will continue with lifestyle 05/08/2023: Weight 176.8, BMI 32.33. Patient graduated an effort, lost 4 pounds since last visit. Has been trying to do well from a lifestyle modification, exercise still limited, but working on this. States that she likes visits every 4 weeks for accountability. Wants to continue with losing weight with lifestyle only. This was encouraged. 07/03/2023: Weight 170, BMI 31.22. Patient congratulated on effort, losing slow, steady weight. Trying to work on being more active but going to workup joint pain in the meantime. States that this has been limiting her. Otherwise, getting M ICC injection today. Declined body scan. 08/09/2023: Weight 169, BMI 30.94. Small weight changes since last visit discussed the importance of lifestyle, not interested in medication assistance, but discussed high-protein, and more consistent exercise. Patient understanding, will follow-up for physical in September, and weight management follow-up in October. Body scan reviewed today showing great improvement with 10 pounds of fat loss with 1 pound of muscle gain 09/11/2023: Weight 167, BMI 30.56. Patient congratulated and effort, doing very well with lifestyle, feels like it is sustainable. Losing slow, steady weight. 10/11/2023: Weight 168, BMI 30: Continue with lifestyle changes, implementing more protein, 11/14/2023: Weight 167 pounds. BMI 30. Continues to follow lifestyle modifications for weight loss. Expresses concern for increased fatigue and heat intolerance. Will recheck thyroid function. Discussed medical management with patient and she will hold off at this time until next follow-up in 4-6 weeks. 12/26/23: Weight 167, BMI 30: continue with lifestyle. patient at a pleateu, not interested in medications at this time, wants to due ot naturally which is encouraged. Labs WNL. 03/25/2024: Weight 169, BMI 30. Patient has continued to plateau since July. Heaviest weight was 202 pounds, so she is congratulated on effort overall. She is interested in potential medications. Avoiding GLP-1's due to low muscle mass and increased risk of sarcopenia. Did discuss Contrave, but patient would prefer to do Wellbutrin alone in combination with her already established Lexapro and lorazepam. Will start at 150 mg during the morning. Discussed proper use, side effects. If no improvement, could consider Contrave. 1. Episode of dizziness/visible carotid pulse. Will order carotid artery ultrasound. #Fatigue increased over last several weeks with associated heat intolerance. Patient has well-circumscribed solid oval thyroid nodule identified on US 10/25/23.Labs in December within normal limits. # Occasional numbness/tingling of her hand while she is sleeping. Does have a history of extensive typing. Most likely carpal tunnel at this time. Physical exam negative otherwise. Discussed bracing at night/posture while sleeping. # Patient does have bilateral shoulder pain. Declines red flag symptoms. Follow with orthopedics, no cartilage in left shoulder they recommended replacement, and getting MRI of the right shoulder. This limits her ability to exercise regularly. #Overactive bladder: Recently saw [employer] E[employer]MENT MECHANIC which discontinued tropsium 20 mg for overactive bladder, and started Gemtesa. Patient states that this is been working really well, trying to get authorization approved by [employer]. #Asthma: Patient following with Director Of Midwifery/Staff Midwife Dr. Quinonez at [facility]. Patient advised to continue Advair Diskus 500-50 MCG/ACT BID, Singular 10 mg qhs, & hydrOXYzine HCl 10 mg qd per peer support specialist's recommendation. Working on taking deep breaths. Filling up alveoli for gas exchange. CO2 mildly elevated #HTN: Advised to continue HydroCHLOROthiazide 25 mg qd and Losartan 50 mg qd.Monitor BP at home, adjust treatment as needed. Educated on the importance of blood pressure control. #VitaminDeficiency: The patient was advised to continue her vitamin D supplementation for her vitamin D deficiency. #Anxiety/Depression: Patient states that escitalopram 20 mg manages the depression well, but the anxiety persists to varying degrees.Patient states that she has been eating more emotionally since she lost one of her animals the New Year's Day. #Low-density: Report from 02/2022 showed osteopenia of L hip with T score of -1.4. The lumbar spine was WNL with a T score of 1.8.Hesitant to use GLP-1's due to increased risk of sarcopenia. # Joint pain: ESR, CRP, Lyme negative. # Mammogram negative. # Joint pain: Following orthopedics, osteoarthritis, right shoulder, may be candidate for replacement. Patient to follow-up in 4 to 6 weeks for weight management, assess efficacy/compliance of initiating Wellbutrin for anxiety/depression as well as for weight loss. Time sent with patient 30 minutes or greater than 50% on patient occasion and care coronation. All quetsions answered to patients satisfaction. Patient verbalized understanding of diagnosis and treatments explained. To call sooner prior to next visit it any questions/concerns arise. Case discussed with collaborating physician Dl Quach who reviewed the assessment and plan. Chart, medications, labs, vital signs reviewed. Dictation was accomplished with the use of [employer] voice recognition software, prone to medical misidentifications and grammatical errors. This is unintentional and the practitioner does try to identify and correct these, but some could still be present. Please do not hesitate to contact practitioner for clarification. 03/25/2024 Palpable mass of neck (ICD-10 - R22.1) 10/03/2022: Weight 202.1, BMI 36.96 10/31/2022: Weight 202.1, BMI 36.96. Patient extensively educated on lifestyle modifications including high-protein foods, low carbohydrate snacks, healthy fats, sleep hygiene, stress reduction. Provided with educational documentation regarding all of this. Patient is interested in weight loss medications. I did extensively educate on the importance of lifestyle modifications high-protein, and resistance training as we age to avoid sarcopenia. Patient is understanding. Did discuss multiple options including Contrave, compounded semaglutide. Patient states that she is going to review the options, and decide what she wants to do by calling the office. Did educate that she should focus on lifestyle over the next 4 weeks, and we can reevaluate medication plan when she works on lifestyle. Goals for lifestyle is to eat out no more then twice weekly and exercise on treadmill atleast 3 times per week. 12/04/2022: Weight 194.4 pounds, BMI 35.55. Patient congratulated on effort. Having great success with weight loss over the past month, has lost 8 pounds. Patient is very pleased, working on sustainable lifestyle factors. Did educate on the importance of continue with lifestyle factors in conjunction with weight loss medications. She is interested would both prefer to wait until Wegovy/Saxenda become available. She is going to look into these options through her pharmacies. 01/11/2023: Weight 189.9, BMI 34.73. Patient congratulated on effort. Continuing to lose slow, steady weight loss. Goal weight to be between 150 and 160 pounds by her birthday in July. She is very pleased with her progress overall and is proud of the progress she is making with lifestyle changes only. Patient still does admit to a lack of energy. Has tried M ICC without great improvement. Discussed IV hydration therapy which she may consider. Educated on high-protein, water intake, and multivitamins. She is doing really well, still interested in medications but would like to wait until the national shortage is over. 02/12/2023: Weight 185.9, BMI 34. Patient congratulated on effort, continuing losing slow, successful weight. Body composition next visit. Patient is doing very well with portion control, and resistance training on her own. Encouraged to continue with lifestyle modifications only for weight loss. Is interested in zepbound for an additional push, is aware that if not available at this time, and she may need to fail a GLP-1 prior to, but will have more information mid-February, to potentially send out in 03/20/2023: Weight 180.2, BMI 32.96. Patient congratulated on effort, continue to lose slow, steady weight. Body composition reviewed showing fat loss, as well as muscle loss. Educated on high-protein, as well as resistance training to maintain muscle. No longer interested in injections/weight management medication, will continue with lifestyle 05/08/2023: Weight 176.8, BMI 32.33. Patient graduated an effort, lost 4 pounds since last visit. Has been trying to do well from a lifestyle modification, exercise still limited, but working on this. States that she likes visits every 4 weeks for accountability. Wants to continue with losing weight with lifestyle only. This was encouraged. 07/03/2023: Weight 170, BMI 31.22. Patient congratulated on effort, losing slow, steady weight. Trying to work on being more active but going to workup joint pain in the meantime. States that this has been limiting her. Otherwise, getting M ICC injection today. Declined body scan. 08/09/2023: Weight 169, BMI 30.94. Small weight changes since last visit discussed the importance of lifestyle, not interested in medication assistance, but discussed high-protein, and more consistent exercise. Patient understanding, will follow-up for physical in September, and weight management follow-up in October. Body scan reviewed today showing great improvement with 10 pounds of fat loss with 1 pound of muscle gain 09/11/2023: Weight 167, BMI 30.56. Patient congratulated and effort, doing very well with lifestyle, feels like it is sustainable. Losing slow, steady weight. 10/11/2023: Weight 168, BMI 30: Continue with lifestyle changes, implementing more protein, 11/14/2023: Weight 167 pounds. BMI 30. Continues to follow lifestyle modifications for weight loss. Expresses concern for increased fatigue and heat intolerance. Will recheck thyroid function. Discussed medical management with patient and she will hold off at this time until next follow-up in 4-6 weeks. 12/26/23: Weight 167, BMI 30: continue with lifestyle. patient at a pleateu, not interested in medications at this time, wants to due ot naturally which is encouraged. Labs WNL. 03/25/2024: Weight 169, BMI 30. Patient has continued to plateau since July. Heaviest weight was 202 pounds, so she is congratulated on effort overall. She is interested in potential medications. Avoiding GLP-1's due to low muscle mass and increased risk of sarcopenia. Did discuss Contrave, but patient would prefer to do Wellbutrin alone in combination with her already established Lexapro and lorazepam. Will start at 150 mg during the morning. Discussed proper use, side effects. If no improvement, could consider Contrave. 1. Episode of dizziness/visible carotid pulse. Will order carotid artery ultrasound. #Fatigue increased over last several weeks with associated heat intolerance. Patient has well-circumscribed solid oval thyroid nodule identified on US 10/25/23.Labs in December within normal limits. # Occasional numbness/tingling of her hand while she is sleeping. Does have a history of extensive typing. Most likely carpal tunnel at this time. Physical exam negative otherwise. Discussed bracing at night/posture while sleeping. # Patient does have bilateral shoulder pain. Declines red flag symptoms. Follow with orthopedics, no cartilage in left shoulder they recommended replacement, and getting MRI of the right shoulder. This limits her ability to exercise regularly. #Overactive bladder: Recently saw [employer]IC which discontinued tropsium 20 mg for overactive bladder, and started Gemtesa. Patient states that this is been working really well, trying to get authorization approved by [employer]. #Asthma: Patient following with Director Of Midwifery/Staff Midwife Dr. Quinonez at [facility]. Patient advised to continue Advair Diskus 500-50 MCG/ACT BID, Singular 10 mg qhs, & hydrOXYzine HCl 10 mg qd per peer support specialist's recommendation. Working on taking deep breaths. Filling up alveoli for gas exchange. CO2 mildly elevated #HTN: Advised to continue HydroCHLOROthiazide 25 mg qd and Losartan 50 mg qd.Monitor BP at home, adjust treatment as needed. Educated on the importance of blood pressure control. #VitaminDeficiency: The patient was advised to continue her vitamin D supplementation for her vitamin D deficiency. #Anxiety/Depression: Patient states that escitalopram 20 mg manages the depression well, but the anxiety persists to varying degrees.Patient states that she has been eating more emotionally since she lost one of her animals the New 's Day. #Low-density: Report from 02/2022 showed osteopenia of L hip with T score of -1.4. The lumbar spine was WNL with a T score of 1.8.Hesitant to use GLP-1's due to increased risk of sarcopenia. # Joint pain: ESR, CRP, Lyme negative. # Mammogram negative. # Joint pain: Following orthopedics, osteoarthritis, right shoulder, may be candidate for replacement. Patient to follow-up in 4 to 6 weeks for weight management, assess efficacy/compliance of initiating Wellbutrin for anxiety/depression as well as for weight loss. Time sent with patient 30 minutes or greater than 50% on patient occasion and care coronation. All quetsions answered to patients satisfaction. Patient verbalized understanding of diagnosis and treatments explained. To call sooner prior to next visit it any questions/concerns arise. Case discussed with collaborating physician Dl Quach who reviewed the assessment and plan. Chart, medications, labs, vital signs reviewed. Dictation was accomplished with the use of [employer] voice recognition software, prone to medical misidentifications and grammatical errors. This is unintentional and the practitioner does try to identify and correct these, but some could still be present. Please do not hesitate to contact practitioner for clarification. 03/25/2024 Fatigue, unspecified type (ICD-10 - R53.83) 10/03/2022: Weight 202.1, BMI 36.96 10/31/2022: Weight 202.1, BMI 36.96. Patient extensively educated on lifestyle modifications including high-protein foods, low carbohydrate snacks, healthy fats, sleep hygiene, stress reduction. Provided with educational documentation regarding all of this. Patient is interested in weight loss medications. I did extensively educate on the importance of lifestyle modifications high-protein, and resistance training as we age to avoid sarcopenia. Patient is understanding. Did discuss multiple options including Contrave, compounded semaglutide. Patient states that she is going to review the options, and decide what she wants to do by calling the office. Did educate that she should focus on lifestyle over the next 4 weeks, and we can reevaluate medication plan when she works on lifestyle. Goals for lifestyle is to eat out no more then twice weekly and exercise on treadmill atleast 3 times per week. 12/04/2022: Weight 194.4 pounds, BMI 35.55. Patient congratulated on effort. Having great success with weight loss over the past month, has lost 8 pounds. Patient is very pleased, working on sustainable lifestyle factors. Did educate on the importance of continue with lifestyle factors in conjunction with weight loss medications. She is interested would both prefer to wait until Wegovy/Saxenda become available. She is going to look into these options through her pharmacies. 01/11/2023: Weight 189.9, BMI 34.73. Patient congratulated on effort. Continuing to lose slow, steady weight loss. Goal weight to be between 150 and 160 pounds by her birthday in July. She is very pleased with her progress overall and is proud of the progress she is making with lifestyle changes only. Patient still does admit to a lack of energy. Has tried M ICC without great improvement. Discussed IV hydration therapy which she may consider. Educated on high-protein, water intake, and multivitamins. She is doing really well, still interested in medications but would like to wait until the national shortage is over. 02/12/2023: Weight 185.9, BMI 34. Patient congratulated on effort, continuing losing slow, successful weight. Body composition next visit. Patient is doing very well with portion control, and resistance training on her own. Encouraged to continue with lifestyle modifications only for weight loss. Is interested in zepbound for an additional push, is aware that if not available at this time, and she may need to fail a GLP-1 prior to, but will have more information mid-February, to potentially send out in 03/20/2023: Weight 180.2, BMI 32.96. Patient congratulated on effort, continue to lose slow, steady weight. Body composition reviewed showing fat loss, as well as muscle loss. Educated on high-protein, as well as resistance training to maintain muscle. No longer interested in injections/weight management medication, will continue with lifestyle 05/08/2023: Weight 176.8, BMI 32.33. Patient graduated an effort, lost 4 pounds since last visit. Has been trying to do well from a lifestyle modification, exercise still limited, but working on this. States that she likes visits every 4 weeks for accountability. Wants to continue with losing weight with lifestyle only. This was encouraged. 07/03/2023: Weight 170, BMI 31.22. Patient congratulated on effort, losing slow, steady weight. Trying to work on being more active but going to workup joint pain in the meantime. States that this has been limiting her. Otherwise, getting M ICC injection today. Declined body scan. 08/09/2023: Weight 169, BMI 30.94. Small weight changes since last visit discussed the importance of lifestyle, not interested in medication assistance, but discussed high-protein, and more consistent exercise. Patient understanding, will follow-up for physical in September, and weight management follow-up in October. Body scan reviewed today showing great improvement with 10 pounds of fat loss with 1 pound of muscle gain 09/11/2023: Weight 167, BMI 30.56. Patient congratulated and effort, doing very well with lifestyle, feels like it is sustainable. Losing slow, steady weight. 10/11/2023: Weight 168, BMI 30: Continue with lifestyle changes, implementing more protein, 11/14/2023: Weight 167 pounds. BMI 30. Continues to follow lifestyle modifications for weight loss. Expresses concern for increased fatigue and heat intolerance. Will recheck thyroid function. Discussed medical management with patient and she will hold off at this time until next follow-up in 4-6 weeks. 12/26/23: Weight 167, BMI 30: continue with lifestyle. patient at a pleateu, not interested in medications at this time, wants to due ot naturally which is encouraged. Labs WNL. 03/25/2024: Weight 169, BMI 30. Patient has continued to plateau since July. Heaviest weight was 202 pounds, so she is congratulated on effort overall. She is interested in potential medications. Avoiding GLP-1's due to low muscle mass and increased risk of sarcopenia. Did discuss Contrave, but patient would prefer to do Wellbutrin alone in combination with her already established Lexapro and lorazepam. Will start at 150 mg during the morning. Discussed proper use, side effects. If no improvement, could consider Contrave. 1. Episode of dizziness/visible carotid pulse. Will order carotid artery ultrasound. #Fatigue increased over last several weeks with associated heat intolerance. Patient has well-circumscribed solid oval thyroid nodule identified on US 10/25/23.Labs in December within normal limits. # Occasional numbness/tingling of her hand while she is sleeping. Does have a history of extensive typing. Most likely carpal tunnel at this time. Physical exam negative otherwise. Discussed bracing at night/posture while sleeping. # Patient does have bilateral shoulder pain. Declines red flag symptoms. Follow with orthopedics, no cartilage in left shoulder they recommended replacement, and getting MRI of the right shoulder. This limits her ability to exercise regularly. #Overactive bladder: Recently saw [employer]CH[employer]IC which discontinued tropsium 20 mg for overactive bladder, and started Gemtesa. Patient states that this is been working really well, trying to get authorization approved by [employer]. #Asthma: Patient following with Director Of Midwifery/Staff Midwife Dr. Quinonez at [facility]. Patient advised to continue Advair Diskus 500-50 MCG/ACT BID, Singular 10 mg qhs, & hydrOXYzine HCl 10 mg qd per peer support specialist's recommendation. Working on taking deep breaths. Filling up alveoli for gas exchange. CO2 mildly elevated #HTN: Advised to continue HydroCHLOROthiazide 25 mg qd and Losartan 50 mg qd.Monitor BP at home, adjust treatment as needed. Educated on the importance of blood pressure control. #VitaminDeficiency: The patient was advised to continue her vitamin D supplementation for her vitamin D deficiency. #Anxiety/Depression: Patient states that escitalopram 20 mg manages the depression well, but the anxiety persists to varying degrees.Patient states that she has been eating more emotionally since she lost one of her animals the New 's Day. #Low-density: Report from 02/2022 showed osteopenia of L hip with T score of -1.4. The lumbar spine was WNL with a T score of 1.8.Hesitant to use GLP-1's due to increased risk of sarcopenia. # Joint pain: ESR, CRP, Lyme negative. # Mammogram negative. # Joint pain: Following orthopedics, osteoarthritis, right shoulder, may be candidate for replacement. Patient to follow-up in 4 to 6 weeks for weight management, assess efficacy/compliance of initiating Wellbutrin for anxiety/depression as well as for weight loss. Time sent with patient 30 minutes or greater than 50% on patient occasion and care coronation. All quetsions answered to patients satisfaction. Patient verbalized understanding of diagnosis and treatments explained. To call sooner prior to next visit it any questions/concerns arise. Case discussed with collaborating physician Dl Quach who reviewed the assessment and plan. Chart, medications, labs, vital signs reviewed. Dictation was accomplished with the use of [employer] voice recognition software, prone to medical misidentifications and grammatical errors. This is unintentional and the practitioner does try to identify and correct these, but some could still be present. Please do not hesitate to contact practitioner for clarification. 03/25/2024 History of dizziness (ICD-10 - Z87.898) 10/03/2022: Weight 202.1, BMI 36.96 10/31/2022: Weight 202.1, BMI 36.96. Patient extensively educated on lifestyle modifications including high-protein foods, low carbohydrate snacks, healthy fats, sleep hygiene, stress reduction. Provided with educational documentation regarding all of this. Patient is interested in weight loss medications. I did extensively educate on the importance of lifestyle modifications high-protein, and resistance training as we age to avoid sarcopenia. Patient is understanding. Did discuss multiple options including Contrave, compounded semaglutide. Patient states that she is going to review the options, and decide what she wants to do by calling the office. Did educate that she should focus on lifestyle over the next 4 weeks, and we can reevaluate medication plan when she works on lifestyle. Goals for lifestyle is to eat out no more then twice weekly and exercise on treadmill atleast 3 times per week. 12/04/2022: Weight 194.4 pounds, BMI 35.55. Patient congratulated on effort. Having great success with weight loss over the past month, has lost 8 pounds. Patient is very pleased, working on sustainable lifestyle factors. Did educate on the importance of continue with lifestyle factors in conjunction with weight loss medications. She is interested would both prefer to wait until Wegovy/Saxenda become available. She is going to look into these options through her pharmacies. 01/11/2023: Weight 189.9, BMI 34.73. Patient congratulated on effort. Continuing to lose slow, steady weight loss. Goal weight to be between 150 and 160 pounds by her birthday in July. She is very pleased with her progress overall and is proud of the progress she is making with lifestyle changes only. Patient still does admit to a lack of energy. Has tried M ICC without great improvement. Discussed IV hydration therapy which she may consider. Educated on high-protein, water intake, and multivitamins. She is doing really well, still interested in medications but would like to wait until the national shortage is over. 02/12/2023: Weight 185.9, BMI 34. Patient congratulated on effort, continuing losing slow, successful weight. Body composition next visit. Patient is doing very well with portion control, and resistance training on her own. Encouraged to continue with lifestyle modifications only for weight loss. Is interested in zepbound for an additional push, is aware that if not available at this time, and she may need to fail a GLP-1 prior to, but will have more information mid-February, to potentially send out in 03/20/2023: Weight 180.2, BMI 32.96. Patient congratulated on effort, continue to lose slow, steady weight. Body composition reviewed showing fat loss, as well as muscle loss. Educated on high-protein, as well as resistance training to maintain muscle. No longer interested in injections/weight management medication, will continue with lifestyle 05/08/2023: Weight 176.8, BMI 32.33. Patient graduated an effort, lost 4 pounds since last visit. Has been trying to do well from a lifestyle modification, exercise still limited, but working on this. States that she likes visits every 4 weeks for accountability. Wants to continue with losing weight with lifestyle only. This was encouraged. 07/03/2023: Weight 170, BMI 31.22. Patient congratulated on effort, losing slow, steady weight. Trying to work on being more active but going to workup joint pain in the meantime. States that this has been limiting her. Otherwise, getting M ICC injection today. Declined body scan. 08/09/2023: Weight 169, BMI 30.94. Small weight changes since last visit discussed the importance of lifestyle, not interested in medication assistance, but discussed high-protein, and more consistent exercise. Patient understanding, will follow-up for physical in September, and weight management follow-up in October. Body scan reviewed today showing great improvement with 10 pounds of fat loss with 1 pound of muscle gain 09/11/2023: Weight 167, BMI 30.56. Patient congratulated and effort, doing very well with lifestyle, feels like it is sustainable. Losing slow, steady weight. 10/11/2023: Weight 168, BMI 30: Continue with lifestyle changes, implementing more protein, 11/14/2023: Weight 167 pounds. BMI 30. Continues to follow lifestyle modifications for weight loss. Expresses concern for increased fatigue and heat intolerance. Will recheck thyroid function. Discussed medical management with patient and she will hold off at this time until next follow-up in 4-6 weeks. 12/26/23: Weight 167, BMI 30: continue with lifestyle. patient at a pleateu, not interested in medications at this time, wants to due ot naturally which is encouraged. Labs WNL. 03/25/2024: Weight 169, BMI 30. Patient has continued to plateau since July. Heaviest weight was 202 pounds, so she is congratulated on effort overall. She is interested in potential medications. Avoiding GLP-1's due to low muscle mass and increased risk of sarcopenia. Did discuss Contrave, but patient would prefer to do Wellbutrin alone in combination with her already established Lexapro and lorazepam. Will start at 150 mg during the morning. Discussed proper use, side effects. If no improvement, could consider Contrave. 1. Episode of dizziness/visible carotid pulse. Will order carotid artery ultrasound. #Fatigue increased over last several weeks with associated heat intolerance. Patient has well-circumscribed solid oval thyroid nodule identified on US 10/25/23.Labs in December within normal limits. # Occasional numbness/tingling of her hand while she is sleeping. Does have a history of extensive typing. Most likely carpal tunnel at this time. Physical exam negative otherwise. Discussed bracing at night/posture while sleeping. # Patient does have bilateral shoulder pain. Declines red flag symptoms. Follow with orthopedics, no cartilage in left shoulder they recommended replacement, and getting MRI of the right shoulder. This limits her ability to exercise regularly. #Overactive bladder: Recently saw [employer] E[employer]MENT MECHANIC which discontinued tropsium 20 mg for overactive bladder, and started Gemtesa. Patient states that this is been working really well, trying to get authorization approved by [employer]. #Asthma: Patient following with Director Of Midwifery/Staff Midwife Dr. Quinonez at [facility]. Patient advised to continue Advair Diskus 500-50 MCG/ACT BID, Singular 10 mg qhs, & hydrOXYzine HCl 10 mg qd per peer support specialist's recommendation. Working on taking deep breaths. Filling up alveoli for gas exchange. CO2 mildly elevated #HTN: Advised to continue HydroCHLOROthiazide 25 mg qd and Losartan 50 mg qd.Monitor BP at home, adjust treatment as needed. Educated on the importance of blood pressure control. #VitaminDeficiency: The patient was advised to continue her vitamin D supplementation for her vitamin D deficiency. #Anxiety/Depression: Patient states that escitalopram 20 mg manages the depression well, but the anxiety persists to varying degrees.Patient states that she has been eating more emotionally since she lost one of her animals the New Year's Day. #Low-density: Report from 02/2022 showed osteopenia of L hip with T score of -1.4. The lumbar spine was WNL with a T score of 1.8.Hesitant to use GLP-1's due to increased risk of sarcopenia. # Joint pain: ESR, CRP, Lyme negative. # Mammogram negative. # Joint pain: Following orthopedics, osteoarthritis, right shoulder, may be candidate for replacement. Patient to follow-up in 4 to 6 weeks for weight management, assess efficacy/compliance of initiating Wellbutrin for anxiety/depression as well as for weight loss. Time sent with patient 30 minutes or greater than 50% on patient occasion and care coronation. All quetsions answered to patients satisfaction. Patient verbalized understanding of diagnosis and treatments explained. To call sooner prior to next visit it any questions/concerns arise. Case discussed with collaborating physician Dl Quach who reviewed the assessment and plan. Chart, medications, labs, vital signs reviewed. Dictation was accomplished with the use of [employer] voice recognition software, prone to medical misidentifications and grammatical errors. This is unintentional and the practitioner does try to identify and correct these, but some could still be present. Please do not hesitate to contact practitioner for clarification. PLAN OF TREATMENT Medication Medication Name Sig Start Date Stop Date Notes buPROPion HCl ER (XL) 150 MG 1 tablet in the morning Orally Once a day for 30 day(s) 03/25/2024 Pending Test Test Name Order Date US Carotid Duplex Bilat Complt Next Appt Details Provider Name:Josie LEIVA 09/16/2024 10:00:00 AM, [address], [place], [id number], Progress Notes * Yulia DENNIS MDOB: [birth year] (73 yo F)Acc No.[id number]:03/25/2024 Patient:??Yulia DENNIS Provider:??PARKER PALENCIA PA-C :1950?Age:73 Y?Sex:Fe male Date:03/25/2024 Address:[address] [place] [address] [phone] Subjective: * Chief Complaints: * ?1. Patient presents fo r weight management follow up. Previous weight was 167.1lbs, current weight is standing at 169.1lbs. No acute concerns needed to be addressed. * HPI: ?Constitutional:? Yulia is a pleasant 73-year-old female who presents the office for a weight management follow-up. Patient was last seen on 12/26/2023 for weight management. She continues to lose slow, steady weight with lifestyle management. She is not interested in medication at this time, and wants to do it naturally. She did have a harder time around the holiday and one of her animals passed new years day so she has not been focused weight loss. ?Patient states that she is interested in potentially starting weight loss medications. She did contact her primary insurance, and they stated that they would cover Wegovy or Zepbound with a prior authorization but reviewing patient's body scan today, she is below average for muscle mass, so therefore will not initiate GLP- 1's. Discussed medication such as Contrave but she does find that she is emotionally eating. She states that she would prefer not to pay $100 [id number], and wants to try Wellbutrin it self in conjunction with her Lexapro, and lorazepam as needed. ?Otherwise, patient states that she has some concerns in regards to being able to see her carotid pulse in her neck, and would like a workup for this. Had 1 episode of dizziness after she was getting her eyelashes tended to. States it was when she went from a laying down to a seated position but she has had no other dizziness, chest pain, vision changes or shortness of breath since. ?Does mid to bilateral shoulder pain for which she is following with orthopedics. States that this limits her ability to exercise regularly because of her joint pain.They recommended a replacement in her left shoulder, and she is currently getting an MRI of her right shoulder. * ROS:?Constitutional: Patient denies any excessive fatigue with exercise, no weight loss, no fever, no night sweats, no changes in sleep. ???Eyes: No eye discharge, no itching, no redness, no vision changes. Advised the significance of regular eye exams to screen for glaucoma and other eye problems. ???Ear nose throat: No ear pain, No sore throat, no postnasal drip, no runny nose, no sneezing, no hearing changes ???Cardiovascular: No chest pain, no dyspnea on exertion, no PND, no orthopnea, no irregular pulse, no palpitations, no claudication, no diaphoresis, no claudication. ???Respiratory: No chronic cough, no hemoptysis, no sputum, no wheezing, no SOB, no pleuritic pain. ???GI: No diarrhea, no constipation, no blood in the stools, no pain associated with eating, no indigestion, no difficulty swallowing, no appetite change. ???Genitourinary: No painful urination, no hesitancy, no blood in the urine, no incontinence, no frequency, no urgency, no abnormal discharge. ???Musculoskeletal: No back pain, no joint pain, no limitations to walking and running, no joint deformity, no joint stiffness, no muscle weakness ???Integumentary: No new skin rash. No new changes in skin moles, no pruritis, no color change. ???Neurological: No history of seizures, no memory loss, no language dysfunction, no inability to concentrate, no localized weakness, no sensation loss, no confusion, no dizziness, no tremor, no numbness, no tingling. ???Psychiatric: no anxiety, no depression, no suicidal thoughts, feels safe at home. ???Endocrine: + Reports fatigue, increased heat intolerance. No polyuria, no polyphagia, no polydipsia. No cold intolerance, no excesss thirst. ???Hematological: No easy bruising or bleeding, no lymph node swelling. * Medical History:??Hypertensi on, essential, Asthma, Anxiety, Overactive bladder, Depression, Vitamin D deficiency, Weight gain, Sleep apnea in adult. * Surgical History:??Cataract Surgery bilaterally 2017, face lift 2009. * Hospitalization/Major Diagno stic Procedure:??6-7 Years back for hypoxia x a few admissions . * Family History:??Father: dec eased 74 yrs, prostate cancer, prostate cancer.??Mother: 93 yrs, type II diabetes.??2 sister(s) - healthy. 2 son(s) . .?? Older son (53) 2 strokes mother: DM Younger son healthy Sisters healthy. * Social History:?NO tob ???no alcohol use. * Medications:??Taking Gemtesa , Taking Vitamin D 50 MCG (2000 UT) Capsule 1 capsule Orally Once a day , Taking LORazepam 0.5 MG Tablet 1 tablet at bedtime as needed , Notes to Pharmacist: as needed, Taking Multivitamin - Tablet 1 tablet Orally Once a day , Taking Advair Diskus 500-50 MCG/ACT Aerosol Powder Breath Activated 1 puff Inhalation Twice a day , Taking Albuterol Sulfate HFA 108 (90 Base) MCG/ACT Aerosol Solution 1 puff as needed Inhalation every 4 hrs , Taking Montelukast Sodium 10 MG Tablet 1 tablet Orally Once a day , Taking Losartan Potassium 50 MG Tablet TAKE 1 TABLET BY MOUTH EVERY DAY FOR 90 DAYS , Taking hydroCHLOROthiazide 25 MG Tablet TAKE 1 TABLET BY MOUTH EVERY DAY IN THE MORNING FOR 90 DAYS , Taking Escitalopram Oxalate 20 MG Tablet TAKE 1 TABLET BY MOUTH EVERY DAY IN THE MORNING DIRECTED Oral , Medication List reviewed and reconciled with the patient * Allergies:??N.K.D.A. Objective: * Vitals:??HR:109/min, BP:120/ 78mm Hg, Wt:169.1lbs, BMI:30.93Index, Ht: 62 in. * Physical Examination:?General: Age appropriate female, well appearing, no acute distress, speaking in full sentences without respiratory compromise. Well groomed, well developed. Alert, Interactive. ?Skin: Warm, dry and intact. ?HEENT: Normocephalic/atraumatic. ?Neck/Thyroid: Supple. Full ROM. ?Lung: Clear to auscultation bilaterally, no wheezes, rales or rhonchi. No barrel chest. Equal chest rise and fall bilaterally. ?Cardiac: S1 and S2 appreciated. No murmurs/rubs or gallops. ?Neuro: CN II-XI grossly intact. Steady gait with ambulation observed. ?Psych: Stable mood and affect. Assessment: * Assessment: 1.??Obesity (BMI 30-39.9) - E66.9 (Primary)??2.??BMI 30.0-30.9,adult - Z68.30??3.??Overactive bladder - N32.81??4.??Acute pain of left shoulder - M25.512??5.??Pain, joint, shoulder, right - M25.511??6.??Palpable mass of neck - R22.1??7.??Fatigue, unspecified type - R53.83??8.??History of dizziness - Z87.898?? 10/03/2022: Weight 202.1, BMI 36.96 10/31/2022: Weight 202.1, BMI 36.96. Patient extensively educated on lifestyle modifications including high-protein foods, low carbohydrate snacks, healthy fats, sleep hygiene, stress reduction. Provided with educational documentation regarding all of this. Patient is interested in weight loss medications. I did extensively educate on the importance of lifestyle modifications high-protein, and resistance training as we age to avoid sarcopenia. Patient is understanding. Did discuss multiple options including Contrave, compounded semaglutide. Patient states that she is going to review the options, and decide what she wants to do by calling the office. Did educate that she should focus on lifestyle over the next 4 weeks, and we can reevaluate medication plan when she works on lifestyle. Goals for lifestyle is to eat out no more then twice weekly and exercise on treadmill atleast 3 times per week. 12/04/2022: Weight 194.4 pounds, BMI 35.55. Patient congratulated on effort. Having great success with weight loss over the past month, has lost 8 pounds. Patient is very pleased, working on sustainable lifestyle factors. Did educate on the importance of continue with lifestyle factors in conjunction with weight loss medications. She is interested would both prefer to wait until Wegovy/Saxenda become available. She is going to look into these options through her pharmacies. 01/11/2023: Weight 189.9, BMI 34.73. Patient congratulated on effort. Continuing to lose slow, steady weight loss. Goal weight to be between 150 and 160 pounds by her birthday in July. She is very pleased with her progress overall and is proud of the progress she is making with lifestyle changes only. Patient still does admit to a lack of energy. Has tried M ICC without great improvement. Discussed IV hydration therapy which she may consider. Educated on high-protein, water intake, and multivitamins. She is doing really well, still interested in medications but would like to wait until the national shortage is over. 02/12/2023: Weight 185.9, BMI 34. Patient congratulated on effort, continuing losing slow, successful weight. Body composition next visit. Patient is doing very well with portion control, and resistance training on her own. Encouraged to continue with lifestyle modifications only for weight loss. Is interested in zepbound for an additional push, is aware that if not available at this time, and she may need to fail a GLP-1 prior to, but will have more information mid-February, to potentially send out in 03/20/2023: Weight 180.2, BMI 32.96. Patient congratulated on effort, continue to lose slow, steady weight. Body composition reviewed showing fat loss, as well as muscle loss. Educated on high-protein, as well as resistance training to maintain muscle. No longer interested in injections/weight management medication, will continue with lifestyle 05/08/2023: Weight 176.8, BMI 32.33. Patient graduated an effort, lost 4 pounds since last visit. Has been trying to do well from a lifestyle modification, exercise still limited, but working on this. States that she likes visits every 4 weeks for accountability. Wants to continue with losing weight with lifestyle only. This was encouraged. 07/03/2023: Weight 170, BMI 31.22. Patient congratulated on effort, losing slow, steady weight. Trying to work on being more active but going to workup joint pain in the meantime. States that this has been limiting her. Otherwise, getting M ICC injection today. Declined body scan. 08/09/2023: Weight 169, BMI 30.94. Small weight changes since last visit discussed the importance of lifestyle, not interested in medication assistance, but discussed high-protein, and more consistent exercise. Patient understanding, will follow- up for physical in September, and weight management follow-up in October. Body scan reviewed today showing great improvement with 10 pounds of fat loss with 1 pound of muscle gain 09/11/2023: Weight 167, BMI 30.56. Patient congratulated and effort, doing very well with lifestyle, feels like it is sustainable. Losing slow, steady weight. 10/11/2023: Weight 168, BMI 30: Continue with lifestyle changes, implementing more protein, 11/14/2023: Weight 167 pounds. BMI 30. Continues to follow lifestyle modifications for weight loss. Expresses concern for increased fatigue and heat intolerance. Will recheck thyroid function. Discussed medical management with patient and she will hold off at this time until next follow-up in 4-6 weeks. 12/26/23: Weight 167, BMI 30: continue with lifestyle. patient at a pleateu, not interested in medications at this time, wants to due ot naturally which is encouraged. Labs WNL. 03/25/2024: Weight 169, BMI 30. Patient has continued to plateau since July. Heaviest weight was 202 pounds, so she is congratulated on effort overall. She is interested in potential medications. Avoiding GLP-1's due to low muscle mass and increased risk of sarcopenia. Did discuss Contrave, but patient would prefer to do Wellbutrin alone in combination with her already established Lexapro and lorazepam. Will start at 150 mg during the morning. Discussed proper use, side effects. If no improvement, could consider Contrave. 1. Episode of dizziness/visible carotid pulse. Will order carotid artery ultrasound. #Fatigue increased over last several weeks with associated heat intolerance. Patient has well-circumscribed solid oval thyroid nodule identified on US 10/25/23.Labs in December within normal limits. # Occasional numbness/tingling of her hand while she is sleeping. Does have a history of extensive typing. Most likely carpal tunnel at this time. Physical exam negative otherwise. Discussed bracing at night/posture while sleeping. # Patient does have bilateral shoulder pain. Declines red flag symptoms. Follow with orthopedics, no cartilage in left shoulder they recommended replacement, and getting MRI of the right shoulder. This limits her ability to exercise regularly. #Overactive bladder: Recently saw [employer] which discontinued tropsium 20 mg for overactive bladder, and started Gemtesa. Patient states that this is been working really well, trying to get authorization approved by [employer] #Asthma: Patient following with Director Of Midwifery/Staff Midwife Dr. Quinonez at [facility]. Patient advised to continue Advair Diskus 500-50 MCG/ACT BID, Singular 10 mg qhs, & hydrOXYzine HCl 10 mg qd per peer support specialist's recommendation. Working on taking deep breaths. Filling up alveoli for gas exchange. CO2 mildly elevated #HTN: Advised to continue HydroCHLOROthiazide 25 mg qd and Losartan 50 mg qd.Monitor BP at home, adjust treatment as needed. Educated on the importance of blood pressure control. #VitaminDeficiency: The patient was advised to continue her vitamin D supplementation for her vitamin D deficiency. #Anxiety/Depression: Patient states that escitalopram 20 mg manages the depression well, but the anxiety persists to varying degrees.Patient states that she has been eating more emotionally since she lost one of her animals the New Year's Day. #Low-density: Report from 02/2022 showed osteopenia of L hip with T score of - 1.4. The lumbar spine was WNL with a T score of 1.8.Hesitant to use GLP-1's due to increased risk of sarcopenia. # Joint pain: ESR, CRP, Lyme negative. # Mammogram negative. # Joint pain: Following orthopedics, osteoarthritis, right shoulder, may be candidate for replacement. Patient to follow-up in 4 to 6 weeks for weight management, assess efficacy/compliance of initiating Wellbutrin for anxiety/depression as well as for weight loss. Time sent with patient 30 minutes or greater than 50% on patient occasion and care coronation. All quetsions answered to patients satisfaction. Patient verbalized understanding of diagnosis and treatments explained. To call sooner prior to next visit it any questions/concerns arise. Case discussed with collaborating physician Dl Quach who reviewed the assessment and plan. Chart, medications, labs, vital signs reviewed. Dictation was accomplished with the use of [employer] voice recognition software, prone to medical misidentifications and grammatical errors. This is unintentional and the practitioner does try to identify and correct these, but some could still be present. Please do not hesitate to contact practitioner for clarification. Plan: * Treatment: 2.??History of dizziness?Imaging: US Carotid Duplex Bilat Complt * Procedure Codes:??04302 P/M CAN INTAKE WORKER, INDIV 15 MIN * Images: Billing Information: * Visit Code:?? 95727 Office Visit, Est Pt., Level 4. Modifiers: SA * Procedure Codes:?? 15329 P/M CAN INTAKE WORKER, INDIV 15 MIN. * Sign off status: Completed true * Provider:??PARKER PALENCIA PA-C Date:??03/12 History and Physical Notes * HPI (History of Present Illness) Category Sub-Category Detail Notes Category Not es Constitutional Yulia is a pleasant 73-year-old female who presents the office for a weight management follow-up. Patient was last seen on 12/26/2023 for weight management. She continues to lose slow, steady weight with lifestyle management. She is not interested in medication at this time, and wants to do it naturally. She did have a harder time around the holiday and one of her animals passed new years day so she has not been focused weight loss. Patient states that she is interested in potentially starting weight loss medications. She did contact her primary insurance, and they stated that they would cover Wegovy or Zepbound with a prior authorization but reviewing patient's body scan today, she is below average for muscle mass, so therefore will not initiate GLP-1's. Discussed medication such as Contrave but she does find that she is emotionally eating. She states that she would prefer not to pay $100 [id number], and wants to try Wellbutrin it self in conjunction with her Lexapro, and lorazepam as needed. Otherwise, patient states that she has some concerns in regards to being able to see her carotid pulse in her neck, and would like a workup for this. Had 1 episode of dizziness after she was getting her eyelashes tended to. States it was when she went from a laying down to a seated position but she has had no other dizziness, chest pain, vision changes or shortness of breath since. Does mid to bilateral shoulder pain for which she is following with orthopedics. States that this limits her ability to exercise regularly because of her joint pain.They recommended a replacement in her left shoulder, and she is currently getting an MRI of her right shoulder. Physical Examination Category Sub-Category Detail Notes Section Note s General: Age appropriate female, well appearing, no acute distress, speaking in full sentences without respiratory compromise. Well groomed, well developed. Alert, Interactive. Skin: Warm, dry and intact. HEENT: Normocephalic/atraumatic. Neck/Thyroid: Supple. Full ROM. Lung: Clear to auscultation bilaterally, no wheezes, rales or rhonchi. No barrel chest. Equal chest rise and fall bilaterally. Cardiac: S1 and S2 appreciated. No murmurs/rubs or gallops. Neuro: CN II-XI grossly intact. Steady gait with ambulation observed. Psych: Stable mood and affect
--- OUTSIDE RECORDS SUMMARY | 2024-05-15 17:25 | XMS_ITS | Patient Health Record ---
Author Organization [facility] Address [address] [place] [address] Care Team Providers Care Ticket Collector Or Usher Name Role Phone PARKER PALENCIA Unavailable [phone] HANANE QUACH Unavailable [phone] JANBRANDYN WALTER Unavailable [phone] ALLERGIES No Known Allergies RESULTS Component Value Reference Range Notes FREE T4 Reviewed date:11/16/2023 07:54:14 AM Interpretation: Performing Lab: Notes/Report: FREE T4 0.89 0.70-1.80 ng/dL FREE T4 Reviewed date:12/14/2023 08:18:35 AM Interpretation: Performing Lab: Notes/Report: FREE T4 0.82 0.70-1.80 ng/dL TSH Reviewed date:12/14/2023 08:18:26 AM Interpretation: Performing Lab: Notes/Report: TSH 1.67 0.40-4.00 uIU/ml TSH Reviewed date:11/16/2023 07:54:14 AM Interpretation: Performing Lab: Notes/Report: TSH 0.82 0.40-4.00 uIU/ml FREE T3 Reviewed date:11/16/2023 10:19:34 AM Interpretation: Performing Lab: Notes/Report: FREE T3 216 230-420 pg/dl FREE T3 Reviewed date:12/14/2023 08:18:31 AM Interpretation: Performing Lab: Notes/Report: FREE T3 262 230-420 pg/dl COMPREHENSIVE METABOLIC PANE L Reviewed date:09/11/2023 03:47:03 PM Interpretation: Performing Lab:NL2, [facility] [id number] Wenceslao Simms Notes/Report: FASTING: YES COLLECTION KIT GIVEN TO PATIENT. PATIENT ADVISED TO RETURN. FASTING:YES GLUCOSE 95 65-99 mg/dL Fasting reference interval UREA NITROGEN (BUN) 17 7-25 mg/dL CREATININE 0.67 0.60-1.00 mg/dL EGFR 91 > OR = 60 mL/min/1.73m2 BUN/CREATININE RATIO SEE NOTE: 6-22 (calc) Not Reported: BUN and Creatinine are within reference range. SODIUM 137 135-146 mmol/L POTASSIUM 4.4 3.5-5.3 mmol/L CHLORIDE 97 98-110 mmol/L CARBON DIOXIDE 35 20-32 mmol/L CALCIUM 10.4 8.6-10.4 mg/dL PROTEIN, TOTAL 6.9 6.1-8.1 g/dL ALBUMIN 4.0 3.6-5.1 g/dL GLOBULIN 2.9 1.9-3.7 g/dL (calc) ALBUMIN/GLOBULIN RATIO 1.4 1.0-2.5 (calc) BILIRUBIN, TOTAL 0.6 0.2-1.2 mg/dL ALKALINE PHOSPHATASE 101 37-153 U/L AST 23 10-35 U/L ALT 20 6-29 U/L CBC (INCLUDES DIFF/PLT) Reviewed date:09/11/2023 03:46:52 PM Interpretation: Performing Lab:NL2, [facility] [id number] [facility] Wenceslao Simms Notes/Report: FASTING:YES COLLECTION KIT GIVEN TO PATIENT. PATIENT ADVISED TO RETURN. FASTING: YES WHITE BLOOD CELL COUNT 8.6 3.8-10.8 Thousand/ uL RED BLOOD CELL COUNT 4.24 3.80-5.10 Million/uL HEMOGLOBIN 13.3 11.7-15.5 g/dL HEMATOCRIT 41.9 35.0-45.0 % MCV 98.8 80.0-100.0 fL MCH 31.4 27.0-33.0 pg MCHC 31.7 32.0-36.0 g/dL RDW 13.1 11.0-15.0 % PLATELET COUNT 237 140-400 Thousand/uL MPV 11.6 7.5-12.5 fL ABSOLUTE NEUTROPHILS 6416 9414-5364 cells/uL ABSOLUTE LYMPHOCYTES 1530 387-1012 cells/uL ABSOLUTE MONOCYTES 525 200-950 cells/uL ABSOLUTE EOSINOPHILS 241 15-500 cells/uL ABSOLUTE BASOPHILS 69 0-200 cells/uL NEUTROPHILS 74.6 LYMPHOCYTES 15.7 MONOCYTES 6.1 EOSINOPHILS 2.8 BASOPHILS 0.8 URINALYSIS, COMPLETE Reviewed date:09/19/2023 10:52:34 AM Interpretation: Performing Lab:Koch[facility], [facility] Media[facility] [id number] Wenceslao Simms Notes/Report: SPLIT 09/06/2023 FROM [id number] FASTING:NO FASTING: NO COLOR YELLOW YELLOW APPEARANCE CLEAR CLEAR SPECIFIC GRAVITY 1.012 1.001-1.035 PH 7.5 5.0-8.0 GLUCOSE NEGATIVE NEGATIVE BILIRUBIN NEGATIVE NEGATIVE KETONES NEGATIVE NEGATIVE OCCULT BLOOD NEGATIVE NEGATIVE PROTEIN NEGATIVE NEGATIVE NITRITE NEGATIVE NEGATIVE LEUKOCYTE ESTERASE TRACE NEGATIVE WBC NONE SEEN < OR = 5 /HPF RBC NONE SEEN < OR = 2 /HPF SQUAMOUS EPITHELIAL CELLS NONE SEEN < OR = 5 /HPF BACTERIA NONE SEEN NONE SEEN /HPF HYALINE CAST NONE SEEN NONE SEEN /LPF NOTE This urine was analyzed for the presence of WBC, RBC, bacteria, casts, and other formed elements. Only those elements seen were reported. SED RATE BY MODIFIED JENNIFER MCLAUGHLIN Reviewed date:09/11/2023 03:32:07 PM Interpretation: Performing Lab:ERICKAKochAbo, [facility] [id number] Wenceslao Simms Notes/Report: FASTING:YES COLLECTION KIT GIVEN TO PATIENT. PATIENT ADVISED TO RETURN. FASTING: YES SED RATE BY MODIFIED MARLENE 9 < OR = 30 mm/h C-REACTIVE PROTEIN Reviewed date:09/11/2023 03:32:07 PM Interpretation: Performing Lab:ERICKA2, [facility] Wenceslao Simms Notes/Report: FASTING:YES COLLECTION KIT GIVEN TO PATIENT. PATIENT ADVISED TO RETURN. FASTING: YES C-REACTIVE PROTEIN <3.0 <8.0 mg/L LYME DISEASE ANTIBODY (IGG), IMMUNOBLOT Reviewed date:09/11/2023 03:43:57 PM Interpretation: Performing Lab:ERICKAKochAbo, [facility] [id number] Wenceslao Almaguerpeggy Notes/Report: FASTING: YES COLLECTION KIT GIVEN TO PATIENT. PATIENT ADVISED TO RETURN. FASTING:YES LYME DISEASE AB(IGG),BLOT NEGATIVE NEGATIVE 18 KD (IGG) BAND NON-REACTIVE 23 KD (IGG) BAND NON-REACTIVE 28 KD (IGG) BAND NON-REACTIVE 30 KD (IGG) BAND NON-REACTIVE 39 KD (IGG) BAND NON-REACTIVE 41 KD (IGG) BAND NON-REACTIVE 45 KD (IGG) BAND NON-REACTIVE 58 KD (IGG) BAND NON-REACTIVE 66 KD (IGG) BAND NON-REACTIVE 93 KD (IGG) BAND NON-REACTIVE As per CDC criteria, a Lyme disease IgG immunoblot must show reactivity to at least 5 of 10 specific borrelial proteins to be considered positive. Although considered negative, reactivity to fewer borrelial proteins may indicate recent B. burgdorferi infection and warrant testing of a later sample. In rare instances, reactivity may represent antibodies induced by exposure to other spirochetes. Lyme immunoblot testing should only be performed on samples from patients who have had a Positive or Equivocal result in a screening assay. [facility] [employer] Reviewed date:09/27/2023 07:50:48 AM Interpretation: Performing Lab: Notes/Report: Original Ordering Provider: [facility] US Thyroid Reviewed date:11/05/2023 04:07:46 PM Interpretation: Performing Lab: Notes/Report: Original Ordering Provider: [facility] CR Shoulder Bilat Min 2 View s Reviewed date:10/04/2023 04:31:07 PM Interpretation: Performing Lab: Notes/Report: Original Ordering Provider: [facility] REASON FOR REFERRAL Diagnosis 1 Left shoulder pain, unspecified chronicity (M25.512) Diagnosis 2 Right shoulder pain, unspecified chronicity (M25.511) Referral Organization [facility] Referring Provider First Name HANANE Referring Provider Last Name DAYRON Referring Provider Speciality Internal M edicine Referred Provider Specialty Orthopedic S urgery Clinical Notes Morenita Pineda 12:08:37 PM > faxed referral, note and imaging to [facility] at [phone], Pipe Curtyue 11/20/2023 03:47:15 PM > The patient was seen on 11/14/2023 Referral Priority Routine Diagnosis 1 Carotid stenosis, bi lateral (I65.23) Referral Organization [facility] Referring Provider First Name HANANE Referring Provider Last Name DAYRON Referring Provider Speciality Internal M edicine Referred Provider Specialty Vascular Sera dionicio General Notes WILDA TORO 05/09 10:44:46 AM > referral faxed [phone] Clinical Notes Jerry Betancur 07/2024 01:56:36 PM > Scheduled for 06/02 at 9 am. Pt aware Referral Priority Routine MEDICATIONS Medication SIG (Take, Route, Frequency, Duration) Notes Start Date End Date Status Gemtesa Active Vitamin D 50 MCG (1999 UT) 1 capsule Ora lly Once a day for 90 days Active LORazepam 0.5 MG 1 tablet at bedtime as needed as needed Active hydroCHLOROthiazide 25 MG TAKE 1 TABLET BY MOUTH EVERY DAY IN THE MORNING FOR 90 DAYS for 90 Active Multivitamin - 1 tablet Orally Once a day Active buPROPion HCl ER (XL) 150 MG TAKE 1 TABL ET BY MOUTH EVERY DAY IN THE MORNING FOR 30 DAYS for 90 Active Advair Diskus 500-50 MCG/ACT 1 puff Inha lation Twice a day Active Albuterol Sulfate HFA 108 (9 0 Base) MCG/ACT 1 puff as needed Inhalation every 4 hrs Active Montelukast Sodium 10 MG 1 tablet Orally Once a day Active Losartan Potassium 50 MG TAKE 1 TABLET B Y MOUTH EVERY DAY FOR 90 DAYS for 90 Active Escitalopram Oxalate 20 MG TAKE 1 TABLET BY MOUTH EVERY DAY IN THE MORNING DIRECTED Oral for 90 Days Active IMMUNIZATIONS Vaccine Route Administration Date Status Comme nts influenza IM Intramuscular 01/11/2023 Administered SOCIAL HISTORY Sex Assigned At : Social History Observation Description Sex Assigned At Unknown Alcohol Screen (Audit-C) Question Answer Notes Did you have a drink containing alcohol in the p ast year? Yes Points 0 Interpretation Negative Section Notes: See HPI NO tob no alcohol use NO tob no alcohol use NO tob no alcohol use PROBLEMS Problem Type ICD Code Onset Dates Problem Status W/U Status Risk SNOMED Code Notes Problem Other obesity (E66.8) Active confirmed 440914734 Problem Mild intermittent asthma with status asthmaticus (J45.22) Active confirmed 824683931 Problem Overactive bladder (N32.81) Active confirmed 109710543 Problem Encounter for screening for other suspected endocrine disorder (Z13.29) Active confirmed 739726706 Problem Anxiety (F41.9) Active confirmed 038436 02 Problem Fatigue, unspecified type (R53.83) Active confirmed 22183272 Problem Vitamin D deficiency (E55.9) Active confirmed 89229941 Problem Hypertension, unspecified type (I10) Active confirmed 66796203 Problem Obesity (BMI 30-39.9) (E66.9) Active confirmed 017859001 Problem BMI 35.0-35.9,adult (Z68.35) Active confirmed 321471193 Problem Sleep apnea in adult (G47.30) Active confirmed Sleep apnea (34848574) Problem BMI 32.0-32.9,adult (Z68.32) Active confirmed 688148540 Problem BMI 36.0-36.9,adult (Z68.36) Active confirmed 207040087 Problem BMI 31.0-31.9,adult (Z68.31) Active confirmed 755289613 Problem BMI 30.0-30.9,adult (Z68.30) Active confirmed 080941582 Problem BMI 34.0-34.9,adult (Z68.34) Active confirmed 761005502 Problem Asthma (J45.909) Active confirmed Asthm a (324365780) Problem History of dizziness (Z87.898) Active confirmed Problem Carotid stenosis, bilateral (I65.23) Active confirmed Occlusion and stenosis of multiple and bilateral cerebral arteries (841169001) Problem Palpable mass of neck (R22.1) Active confirmed Problem Hypertension, essential (I10) Active confirmed Essential hypertension (13384361) VITAL SIGNS Heart Rate 109 /min 03/25/2024 Blood pressure diastolic 78 mm Hg 03/25/2024 Oximetry 93 % 12/26/2023 Height 62 in 03/25/2024 Blood pressure systolic 120 mm Hg 03/25/2024 Weight 169.1 lbs 03/25/2024 BMI 30.93 kg/m2 03/25/2024 Encounters Encounter Location Date Provider Diagnosis [facility] [address] [place] [address] 06/07/2023 PARKER PALENCIA [facility] [address] [place] [address] 01/30/2024 PARKER PALENCIA [facility] [address] [place] [address] 05/08/2024 PARKER TALHA [facility] [address] [place] [address] 07/03/2023 PARKER TALHA Other obesity E66.8 ; BMI 31.0-31.9,adult Z68.31 ; Overactive bladder N32.81 ; Mild intermittent asthma with status asthmaticus J45.22 ; Hypertension, unspecified type I10 ; Vitamin D deficiency E55.9 and Anxiety F41.9 [facility] [address] [place] [address] 08/09/2023 PARKER TALHA Other obesity E66.8 ; BMI 30.0-30.9,adult Z68.30 ; Overactive bladder N32.81 ; Mild intermittent asthma with status asthmaticus J45.22 ; Hypertension, unspecified type I10 ; Vitamin D deficiency E55.9 and Anxiety F41.[address] [address] 09/11/2023 PARKER TALHA Other obesity E66.8 ; Wellness examination Z00.00 ; BMI 30.0-30.9,adult Z68.30 ; Overactive bladder N32.81 ; Acute pain of left shoulder M25.512 ; Pain, joint, shoulder, right M25.511 ; Encounter for screening mammogram for malignant neoplasm of breast Z12.31 ; Encounter for screening for depression Z13.31 ; Encounter for screening for other disorder Z13.89 and Other specified counseling Z71.89 [facility] [address] [place] [address] 10/11/2023 PARKER TALHA Other obesity E66.8 ; BMI 30.0-30.9,adult Z68.30 ; Overactive bladder N32.81 ; Acute pain of left shoulder M25.512 ; Pain, joint, shoulder, right M25.511 and Palpable mass of neck R22.[address] [address] 11/14/2023 BRANDYN MORALES Other obesity E66.8 ; BMI 30.0-30.9,adult Z68.30 ; Overactive bladder N32.81 ; Acute pain of left shoulder M25.512 ; Pain, joint, shoulder, right M25.511 ; Palpable mass of neck R22.1 ; Encounter for screening for other suspected endocrine disorder Z13.29 and Fatigue, unspecified type R53.83 [facility] [address] [place] [address] 12/26/2023 PARKER TALHA BMI 30.0-30.9,adult Z68.30 ; Obesity (BMI 30-39.9) E66.9 ; Overactive bladder N32.81 ; Acute pain of left shoulder M25.512 ; Pain, joint, shoulder, right M25.511 ; Palpable mass of neck R22.1 and Fatigue, unspecified type R53.83 [facility] [address] [place] [address] 03/25/2024 PARKER TALHA BMI 30.0-30.9,adult Z68.30 ; Obesity (BMI 30-39.9) E66.9 ; Overactive bladder N32.81 ; Acute pain of left shoulder M25.512 ; Pain, joint, shoulder, right M25.511 ; Palpable mass of neck R22.1 ; Fatigue, unspecified type R53.83 and History of dizziness Z87.898 [facility] [address] [place] [address] 07/04/2023 HANANE QUACH Adult general medica l exam Z00.00 ; Joint pain of leg M25.50 and Lipid screening Z13.220 [facility] [address] [address] 08/21/2023 PARKERGulshan PALENCIA Other obesity E66.8 [place] [address] [address] 10/04/2023 PARKER TALHA [facility] [address] [place] [address] 05/09/2024 PARKER PALENCIA ASSESSMENTS Encounter Date Diagnosis Assessment Notes Treatment Notes Treatment Clinical Notes Section Notes 07/03/2023 Other obesity (ICD-10 - E66.8) Yulia, 72 y/o F, with PMH of HTN, asthma, vitamin D deficiency, overactive bladder, anxiety and depression presents for weight management f/u. 10/03/2022: Weight 202.1, BMI 36.96 10/31/2022: Weight [...] M ICC injection today. Declined body scan. #OveractiveBladder: # Overactive bladder: Recently saw [employer] which discontinued tropsium 20 mg for overactive bladder, and started Gemtesa. Patient states that this is been working really well, trying to get authorization approved by [employer]. #Asthma: Patient following with [employer] Apprentice Dr. Quinonez at [facility]. Patient advised to continue Advair Diskus 500-50 MCG/ACT BID, Singular 10 mg qhs, & hydrOXYzine HCl 10 mg qd per rubber mold maker's recommendation. Patient states that today's oxygen saturation of 99% is the best she has ever had. #HTN: Advised to continue HydroCHLOROthiazide 25 mg qd and Losartan 50 mg qd.Monitor BP at home, adjust treatment as needed. Educated on the importance of blood pressure control. #VitaminDeficiency: The patient was advised to continue her vitamin D supplementation for her vitamin D deficiency. #Anxiety/Depression: Patient states that escitalopram 20 mg manages the depression well, but the anxiety persists to varying degrees. #Mammogram: Report from March 2022 showed no sign of malignancy. #Low-density: Report from 02/2022 showed osteopenia of L hip with T score of -1.4. The lumbar spine was WNL with a T score of 1.8.Hesitant to use GLP-1's due to increased risk of sarcopenia. #Labs: Printout from labs 07/2022 were WNL besides Total Cholesterol:219 mg/dL, LDL 139 mg/dL, CO2 34 mmol/L # Joint pain: Ordering labs prior to next visit including ESR, CRP, Lyme. Patient to follow-up in August for complete physical with labs, sooner as needed Time spent with patient 30 minutes greater than 50% of patient education and care coordination. All quetsions answered to patients satisfaction. Patient verbalized understanding of diagnosis and treatments explained. To call sooner prior to next visit it any questions/concerns arise. Case discussed with collaborating physician Kleber Quach who reviewed the assessment and plan. Chart, medications, labs, vital signs reviewed. Dictation was accomplished with the use of [employer] voice recognition software, prone to medical misidentifications and grammatical errors. This is unintentional and the practitioner does try to identify and correct these, but some could still be present. Please do not hesitate to contact practitioner for clarification. 07/03/2023 BMI 31.0-31.9,adult (ICD-10 - Z68.31) Yulia, 72 y/o F, with PMH of HTN, asthma, vitamin D deficiency, overactive bladder, anxiety and depression presents for weight management f/u. 10/03/2022: Weight 202.1, BMI 36.96 10/31/2022: Weight [...] M ICC injection today. Declined body scan. #OveractiveBladder: # Overactive bladder: Recently saw [employer] which discontinued tropsium 20 mg for overactive bladder, and started Gemtesa. Patient states that this is been working really well, trying to get authorization approved by [employer]. #Asthma: Patient following with C[employer] Operator Apprentice Dr. Quinonez at [facility]. Patient advised to continue Advair Diskus 500-50 MCG/ACT BID, Singular 10 mg qhs, & hydrOXYzine HCl 10 mg qd per rubber mold maker's recommendation. Patient states that today's oxygen saturation of 99% is the best she has ever had. #HTN: Advised to continue HydroCHLOROthiazide 25 mg qd and Losartan 50 mg qd.Monitor BP at home, adjust treatment as needed. Educated on the importance of blood pressure control. #VitaminDeficiency: The patient was advised to continue her vitamin D supplementation for her vitamin D deficiency. #Anxiety/Depression: Patient states that escitalopram 20 mg manages the depression well, but the anxiety persists to varying degrees. #Mammogram: Report from March 2022 showed no sign of malignancy. #Low-density: Report from 02/2022 showed osteopenia of L hip with T score of -1.4. The lumbar spine was WNL with a T score of 1.8.Hesitant to use GLP-1's due to increased risk of sarcopenia. #Labs: Printout from labs 07/2022 were WNL besides Total Cholesterol:219 mg/dL, LDL 139 mg/dL, CO2 34 mmol/L # Joint pain: Ordering labs prior to next visit including ESR, CRP, Lyme. Patient to follow-up in August for complete physical with labs, sooner as needed Time spent with patient 30 minutes greater than 50% of patient education and care coordination. All quetsions answered to patients satisfaction. Patient verbalized understanding of diagnosis and treatments explained. To call sooner prior to next visit it any questions/concerns arise. Case discussed with collaborating physician Kleber Quach who reviewed the assessment and plan. Chart, medications, labs, vital signs reviewed. Dictation was accomplished with the use of [employer] voice recognition software, prone to medical misidentifications and grammatical errors. This is unintentional and the practitioner does try to identify and correct these, but some could still be present. Please do not hesitate to contact practitioner for clarification. 07/04/2023 Adult general medical exam (ICD-10 - Z00.00) 08/09/2023 Other obesity (ICD-10 - E66.8) Yulia, 72 y/o F, with PMH of HTN, asthma, vitamin D deficiency, overactive bladder, anxiety and depression presents for weight management f/u. 10/03/2022: Weight 202.1, BMI 36.96 10/31/2022: Weight [...] loss with 1 pound of muscle gain #OveractiveBladder: # Overactive bladder: Recently saw [employer] which discontinued tropsium 20 mg for overactive bladder, and started Gemtesa. Patient states that this is been working really well, trying to get authorization approved by [employer]. #Asthma: Patient following with [employer] Apprentice Dr. Quinonez at [facility]. Patient advised to continue Advair Diskus 500-50 MCG/ACT BID, Singular 10 mg qhs, & hydrOXYzine HCl 10 mg qd per rubber mold maker's recommendation. Patient states that today's oxygen saturation of 99% is the best she has ever had. #HTN: Advised to continue HydroCHLOROthiazide 25 mg qd and Losartan 50 mg qd.Monitor BP at home, adjust treatment as needed. Educated on the importance of blood pressure control. #VitaminDeficiency: The patient was advised to continue her vitamin D supplementation for her vitamin D deficiency. #Anxiety/Depression: Patient states that escitalopram 20 mg manages the depression well, but the anxiety persists to varying degrees. #Mammogram: Report from March 2022 showed no sign of malignancy. #Low-density: Report from 02/2022 showed osteopenia of L hip with T score of -1.4. The lumbar spine was WNL with a T score of 1.8.Hesitant to use GLP-1's due to increased risk of sarcopenia. #Labs: Printout from labs 07/2022 were WNL besides Total Cholesterol:219 mg/dL, LDL 139 mg/dL, CO2 34 mmol/L # Joint pain: Ordering labs prior to next visit including ESR, CRP, Lyme. Follow-up for physical in September, sooner as needed. Time spent with patient 30 minutes greater than 50% of patient education and care coordination. All quetsions answered to patients satisfaction. Patient verbalized understanding of diagnosis and treatments explained. To call sooner prior to next visit it any questions/concerns arise. Case discussed with collaborating physician Kleber Quach who reviewed the assessment and plan. Chart, medications, labs, vital signs reviewed. Dictation was accomplished with the use of [employer] voice recognition software, prone to medical misidentifications and grammatical errors. This is unintentional and the practitioner does try to identify and correct these, but some could still be present. Please do not hesitate to contact practitioner for clarification. 08/09/2023 BMI 30.0-30.9,adult (ICD-10 - Z68.30) Yulia, 72 y/o F, with PMH of HTN, asthma, vitamin D deficiency, overactive bladder, anxiety and depression presents for weight management f/u. 10/03/2022: Weight 202.1, BMI 36.96 10/31/2022: Weight [...] loss with 1 pound of muscle gain #OveractiveBladder: # Overactive bladder: Recently saw [employer] which discontinued tropsium 20 mg for overactive bladder, and started Gemtesa. Patient states that this is been working really well, trying to get authorization approved by [employer]. #Asthma: Patient following with [employer] Apprentice Dr. Quinonez at [facility]. Patient advised to continue Advair Diskus 500-50 MCG/ACT BID, Singular 10 mg qhs, & hydrOXYzine HCl 10 mg qd per rubber mold maker's recommendation. Patient states that today's oxygen saturation of 99% is the best she has ever had. #HTN: Advised to continue HydroCHLOROthiazide 25 mg qd and Losartan 50 mg qd.Monitor BP at home, adjust treatment as needed. Educated on the importance of blood pressure control. #VitaminDeficiency: The patient was advised to continue her vitamin D supplementation for her vitamin D deficiency. #Anxiety/Depression: Patient states that escitalopram 20 mg manages the depression well, but the anxiety persists to varying degrees. #Mammogram: Report from March 2022 showed no sign of malignancy. #Low-density: Report from 02/2022 showed osteopenia of L hip with T score of -1.4. The lumbar spine was WNL with a T score of 1.8.Hesitant to use GLP-1's due to increased risk of sarcopenia. #Labs: Printout from labs 07/2022 were WNL besides Total Cholesterol:219 mg/dL, LDL 139 mg/dL, CO2 34 mmol/L # Joint pain: Ordering labs prior to next visit including ESR, CRP, Lyme. Follow-up for physical in September, sooner as needed. Time spent with patient 30 minutes greater than 50% of patient education and care coordination. All quetsions answered to patients satisfaction. Patient verbalized understanding of diagnosis and treatments explained. To call sooner prior to next visit it any questions/concerns arise. Case discussed with collaborating physician Kleber Quach who reviewed the assessment and plan. Chart, medications, labs, vital signs reviewed. Dictation was accomplished with the use of [employer] voice recognition software, prone to medical misidentifications and grammatical errors. This is unintentional and the practitioner does try to identify and correct these, but some could still be present. Please do not hesitate to contact practitioner for clarification. 08/21/2023 Other obesity (ICD-10 - E66.8) 09/11/2023 Other obesity (ICD-10 - E66.8) Patient here for Medicare wellness visit. PHQ-9 a total score of 3, no concern regarding mental health at this time. Up-to-date on all routine screening and vaccines aside from mammogram for which we will order today. Healthcare proxy is her grandson. 10/03/2022: Weight 202.1, BMI 36.96 10/31/2022: Weight [...] it is sustainable. Losing slow, steady weight. # Occasional numbness/tingling of her hand while she is sleeping. Does have a history of extensive typing. Most likely carpal tunnel at this time. Physical exam negative otherwise. Discussed bracing at night/posture while sleeping. # Patient does have bilateral shoulder pain. Declines red flag symptoms. Will start with x-rays, questioning arthritis. #Overactive bladder: Recently saw [employer] which discontinued tropsium 20 mg for overactive bladder, and started Gemtesa. Patient states that this is been working really well, trying to get authorization approved by [employer]. #Asthma: Patient following with Cyl[employer] Operator Apprentice Dr. Quinonez at [facility]. Patient advised to continue Advair Diskus 500-50 MCG/ACT BID, Singular 10 mg qhs, & hydrOXYzine HCl 10 mg qd per rubber mold maker's recommendation. Patient states that today's oxygen saturation of 93%. Working on taking deep breaths. Filling up [...] well, but the anxiety persists to varying degrees. #Low-density: Report from 02/2022 showed osteopenia of L hip with T score of -1.4. The lumbar spine was WNL with a T score of 1.8.Hesitant to use GLP-1's due to increased risk of sarcopenia. # Joint pain: ESR, CRP, Lyme negative. # Palpable mass soft tissue of the neck bilaterally, most likely lymph nodes, but will order ultrasound to be sure. Follow-up next month for weight management, sooner as needed. In the meantime ordering mammogram, bilateral shoulder x-rays, and ultrasound of neck. Time spent with patient 30 minutes greater than 50% of patient education and care coordination. Patient seen and examined. Comprehensive discussion was done on the following. 1. Nutrition: It is important to follow a healthy diet based on lots of vegetables and legumes and good fat. Avoid processed food and processed carbohydrates. Prepare your own meals. Read labels and avoid high fructose corn syrup, processed chemicals added to increase shelf life and preprepared meals. Avoid fast foods. Eat slowly and plan meals for a week. Try to count calories and be mindful off daily calorie intake. Get into the habit of keeping an eye on your weight by using an appropriate scale. Learn to log exercise and discussed fitness Apps like [employer] which can help keep log off calories taken versus calories burned. Local food should be preferred. Discussed Dirty Dozen Versus Clean Fifteen. Discussed healthy supplements like fish oil, Tumeric, Curcumin, Melatonin, Resveratrol, Probiotics, Vitamin-D, Alpha-Lipoic acid, Vitamin-D and coconut oil. 2. It is important to exercise regularly. Is a good habit to walk at least 30 minutes a day. Gentle weightlifting with standard precautions to protect the back. Finding activity like cycling or hiking and get into the habit of engaging in it. Stretching before and after the exercises important. It is also important to contact me if there are any problems like shortness of breath, chest pain, back pain and joint or muscle pain associated with the exercise. 3. Discussed age appropriate screening guidelines. Colonoscopy needs to start at age 50 with stool for occult blood as appropriate. There is a new test that can test for genetic abnormalities in the stool sample, Cologuard. This would not replace a colonoscopy but could be used as a screening tool for patients who do not want a colonoscopy. We discussed the importance of early detection of colon cancer. 4. Discussed current guidelines with respect to breast examination, mammogram and pap smear for early detection of breast and cervical cancer. Patient advised to follow up with these appointments. 5. Discussed safe driving and no use of smart phone while driving 6. Age-appropriate immunizations were discussed. A tetanus booster is needed every 10 years. Flu vaccine is recommended every year just before the start of the flu season. Shingles vaccine is recommended after age 50 but not all insurances cover it. Pneumonia vaccine is given after age 65 unless there are certain comorbidities for which it is started earlier. 7. Diagnostic labs were discussed. These could include/not limited to CBC CMP and lipids with fasting blood glucose and insulin levels. Vitamin D and hemoglobin A1c testing might be appropriate. 09/11/2023 Wellness examination (ICD-10 - Z00.00) Patient here for Medicare wellness visit. PHQ-9 a total score of 3, no concern regarding mental health at this time. Up-to-date on all routine screening and vaccines aside from mammogram for which we will order today. Healthcare proxy is her grandson. 10/03/2022: Weight 202.1, BMI 36.96 10/31/2022: Weight [...] it is sustainable. Losing slow, steady weight. # Occasional numbness/tingling of her hand while she is sleeping. Does have a history of extensive typing. Most likely carpal tunnel at this time. Physical exam negative otherwise. Discussed bracing at night/posture while sleeping. # Patient does have bilateral shoulder pain. Declines red flag symptoms. Will start with x-rays, questioning arthritis. #Overactive bladder: Recently saw [employer] which discontinued tropsium 20 mg for overactive bladder, and started Gemtesa. Patient states that this is been working really well, trying to get authorization approved by [employer]. #Asthma: Patient following with Cyl[employer] Operator Apprentice Dr. Quinonez at [facility]. Patient advised to continue Advair Diskus 500-50 MCG/ACT BID, Singular 10 mg qhs, & hydrOXYzine HCl 10 mg qd per rubber mold maker's recommendation. Patient states that today's oxygen saturation of 93%. Working on taking deep breaths. Filling up [...] well, but the anxiety persists to varying degrees. #Low-density: Report from 02/2022 showed osteopenia of L hip with T score of -1.4. The lumbar spine was WNL with a T score of 1.8.Hesitant to use GLP-1's due to increased risk of sarcopenia. # Joint pain: ESR, CRP, Lyme negative. # Palpable mass soft tissue of the neck bilaterally, most likely lymph nodes, but will order ultrasound to be sure. Follow-up next month for weight management, sooner as needed. In the meantime ordering mammogram, bilateral shoulder x-rays, and ultrasound of neck. Time spent with patient 30 minutes greater than 50% of patient education and care coordination. Patient seen and examined. Comprehensive discussion was done on the following. 1. Nutrition: It is important to follow a healthy diet based on lots of vegetables and legumes and good fat. Avoid processed food and processed carbohydrates. Prepare your own meals. Read labels and avoid high fructose corn syrup, processed chemicals added to increase shelf life and preprepared meals. Avoid fast foods. Eat slowly and plan meals for a week. Try to count calories and be mindful off daily calorie intake. Get into the habit of keeping an eye on your weight by using an appropriate scale. Learn to log exercise and discussed fitness Apps like [employer] which can help keep log off calories taken versus calories burned. Local food should be preferred. Discussed Dirty Dozen Versus Clean Fifteen. Discussed healthy supplements like fish oil, Tumeric, Curcumin, Melatonin, Resveratrol, Probiotics, Vitamin-D, Alpha-Lipoic acid, Vitamin-D and coconut oil. 2. It is important to exercise regularly. Is a good habit to walk at least 30 minutes a day. Gentle weightlifting with standard precautions to protect the back. Finding activity like cycling or hiking and get into the habit of engaging in it. Stretching before and after the exercises important. It is also important to contact me if there are any problems like shortness of breath, chest pain, back pain and joint or muscle pain associated with the exercise. 3. Discussed age appropriate screening guidelines. Colonoscopy needs to start at age 50 with stool for occult blood as appropriate. There is a new test that can test for genetic abnormalities in the stool sample, Cologuard. This would not replace a colonoscopy but could be used as a screening tool for patients who do not want a colonoscopy. We discussed the importance of early detection of colon cancer. 4. Discussed current guidelines with respect to breast examination, mammogram and pap smear for early detection of breast and cervical cancer. Patient advised to follow up with these appointments. 5. Discussed safe driving and no use of smart phone while driving 6. Age-appropriate immunizations were discussed. A tetanus booster is needed every 10 years. Flu vaccine is recommended every year just before the start of the flu season. Shingles vaccine is recommended after age 50 but not all insurances cover it. Pneumonia vaccine is given after age 65 unless there are certain comorbidities for which it is started earlier. 7. Diagnostic labs were discussed. These could include/not limited to CBC CMP and lipids with fasting blood glucose and insulin levels. Vitamin D and hemoglobin A1c testing might be appropriate. 10/11/2023 Other obesity (ICD-10 - E66.8) 10/03/2022: Weight 202.1, BMI 36.96 10/31/2022: Weight [...] Continue with lifestyle changes, implementing more protein, # Occasional numbness/tingling of her hand while she is sleeping. Does have a history of extensive typing. Most likely carpal tunnel at this time. Physical exam negative otherwise. Discussed bracing at night/posture while sleeping. # Patient does have bilateral shoulder pain. Declines red flag symptoms. Will start with x-rays, questioning arthritis. #Overactive bladder: Recently saw [employer] which discontinued tropsium 20 mg for overactive bladder, and started Gemtesa. Patient states that this is been working really well, trying to get authorization approved by [employer]. #Asthma: Patient following with Cyl[employer] Operator Apprentice Dr. Quinonez at [facility]. Patient advised to continue Advair Diskus 500-50 MCG/ACT BID, Singular 10 mg qhs, & hydrOXYzine HCl 10 mg qd per rubber mold maker's recommendation. Working on taking deep breaths. Filling [...] well, but the anxiety persists to varying degrees. #Low-density: Report from 02/2022 showed osteopenia of L hip with T score of -1.4. The lumbar spine was WNL with a T score of 1.8.Hesitant to use GLP-1's due to increased risk of sarcopenia. # Joint pain: ESR, CRP, Lyme negative. # Palpable mass soft tissue of the neck bilaterally, most likely lymph nodes, but will order ultrasound to be sure., Was not ordered last visit. # Mammogram negative. # Joint pain: Following orthopedics, osteoarthritis, right shoulder, may be candidate for replacement. Follow-up in November, sooner as needed. Ultrasound of the neck in the meantime. Time sent with patient 30 minutes or [...] Dictation was accomplished with the use of [employer] voice recognition software, prone to medical misidentifications and grammatical errors. This is unintentional and the practitioner does try to identify and correct these, but some could still be present. Please do not hesitate to contact practitioner for clarification. 10/11/2023 BMI 30.0-30.9,adult (ICD-10 - Z68.30) 10/03/2022: Weight 202.1, BMI [...] Continue with lifestyle changes, implementing more protein, # Occasional numbness/tingling of her hand while she is sleeping. Does have a history of extensive typing. Most likely carpal tunnel at this time. Physical exam negative otherwise. Discussed bracing at night/posture while sleeping. # Patient does have bilateral shoulder pain. Declines red flag symptoms. Will start with x-rays, questioning arthritis. #Overactive bladder: Recently saw [employer] which discontinued tropsium 20 mg for overactive bladder, and started Gemtesa. Patient states that this is been working really well, trying to get authorization approved by [employer]. #Asthma: Patient following with Cyl[employer] Operator Apprentice Dr. Quinonez at [facility]. Patient advised to continue Advair Diskus 500-50 MCG/ACT BID, Singular 10 mg qhs, & hydrOXYzine HCl 10 mg qd per rubber mold maker's recommendation. Working on taking deep breaths. Filling [...] well, but the anxiety persists to varying degrees. #Low-density: Report from 02/2022 showed osteopenia of L hip with T score of -1.4. The lumbar spine was WNL with a T score of 1.8.Hesitant to use GLP-1's due to increased risk of sarcopenia. # Joint pain: ESR, CRP, Lyme negative. # Palpable mass soft tissue of the neck bilaterally, most likely lymph nodes, but will order ultrasound to be sure., Was not ordered last visit. # Mammogram negative. # Joint pain: Following orthopedics, osteoarthritis, right shoulder, may be candidate for replacement. Follow-up in November, sooner as needed. Ultrasound of the neck in the meantime. Time sent with patient 30 minutes or [...] Dictation was accomplished with the use of [employer] voice recognition software, prone to medical misidentifications and grammatical errors. This is unintentional and the practitioner does try to identify and correct these, but some could still be present. Please do not hesitate to contact practitioner for clarification. 11/14/2023 Other obesity (ICD-10 - E66.8) 10/03/2022: Weight 202.1, BMI 36.96 10/31/2022: Weight [...] more protein, 11/14/2023: Weight 167 pounds. BMI 28.7. Continues to follow lifestyle modifications for weight loss. Expresses concern for increased fatigue and heat intolerance. Will recheck thyroid function. Discussed medical management with patient and she will hold off at this time until next follow-up in 4-6 weeks. #Fatigue increased over last several weeks with associated heat intolerance. Patient has well-circumscribed solid oval thyroid nodule identified on US 10/25/23. Labs for TSH and reflex T3 and T4 ordered and will continue to follow and manage accordingly. # Occasional numbness/tingling of her hand while she is sleeping. Does have a history of extensive typing. Most likely carpal tunnel at this time. Physical exam negative otherwise. Discussed bracing at night/posture while sleeping. # Patient does have bilateral shoulder pain. Declines red flag symptoms. Will start with x-rays, questioning arthritis. #Overactive bladder: Recently saw [employer] which discontinued tropsium 20 mg for overactive bladder, and started Gemtesa. Patient states that this is been working really well, trying to get authorization approved by [employer]. #Asthma: Patient following with Cyl[employer] Operator Apprentice Dr. Quinonez at [facility]. Patient advised to continue Advair Diskus 500-50 MCG/ACT BID, Singular 10 mg qhs, & hydrOXYzine HCl 10 mg qd per rubber mold maker's recommendation. Working on taking deep breaths. Filling [...] well, but the anxiety persists to varying degrees. #Low-density: Report from 02/2022 showed osteopenia of L hip with T score of -1.4. The lumbar spine was WNL with a T score of 1.8.Hesitant to use GLP-1's due to increased risk of sarcopenia. # Joint pain: ESR, CRP, Lyme negative. # Palpable mass soft tissue of the neck bilaterally, most likely lymph nodes, but will order ultrasound to be sure., Was not ordered last visit. # Mammogram negative. # Joint pain: Following orthopedics, osteoarthritis, right shoulder, may be candidate for replacement. Follow-up in November, sooner as needed. Ultrasound of the neck in the meantime. Time sent with patient 30 minutes or [...] Dictation was accomplished with the use of [employer] voice recognition software, prone to medical misidentifications and grammatical errors. This is unintentional and the practitioner does try to identify and correct these, but some could still be present. Please do not hesitate to contact practitioner for clarification. 12/26/2023 Obesity (BMI 30-39.9) (ICD-10 - E66.9) 10/03/2022: [...] ot naturally which is encouraged. Labs WNL. #Fatigue increased over last several weeks with associated heat intolerance. Patient has well-circumscribed solid oval thyroid nodule identified on US 10/25/23. # Occasional numbness/tingling of her hand while she is sleeping. Does have a history of extensive typing. Most likely carpal tunnel at this time. Physical exam negative otherwise. Discussed bracing at night/posture while sleeping. # Patient does have bilateral shoulder pain. Declines red flag symptoms. Will start with x-rays, questioning arthritis. #Overactive bladder: Recently saw [employer] which discontinued tropsium 20 mg for overactive bladder, and started Gemtesa. Patient states that this is been working really well, trying to get authorization approved by [employer]. #Asthma: Patient following with [employer] Operator Apprentice Dr. Quinonez at [facility]. Patient advised to continue Advair Diskus 500-50 MCG/ACT BID, Singular 10 mg qhs, & hydrOXYzine HCl 10 mg qd per rubber mold maker's recommendation. Working on taking deep breaths. Filling [...] well, but the anxiety persists to varying degrees. #Low-density: Report from 02/2022 showed osteopenia of L hip with T score of -1.4. The lumbar spine was WNL with a T score of 1.8.Hesitant to use GLP-1's due to increased risk of sarcopenia. # Joint pain: ESR, CRP, Lyme negative. # Palpable mass soft tissue of the neck bilaterally, most likely lymph nodes, but will order ultrasound to be sure., Was not ordered last visit. # Mammogram negative. # Joint pain: Following orthopedics, osteoarthritis, right shoulder, may be candidate for replacement. Time sent with patient 30 minutes or [...] Dictation was accomplished with the use of [employer] voice recognition software, prone to medical misidentifications and grammatical errors. This is unintentional and the practitioner does try to identify and correct these, but some could still be present. Please do not hesitate to contact practitioner for clarification. 12/26/2023 BMI 30.0-30.9,adult (ICD-10 - Z68.30) 10/03/2022: Weight 202.1, BMI [...] ot naturally which is encouraged. Labs WNL. #Fatigue increased over last several weeks with associated heat intolerance. Patient has well-circumscribed solid oval thyroid nodule identified on US 10/25/23. # Occasional numbness/tingling of her hand while she is sleeping. Does have a history of extensive typing. Most likely carpal tunnel at this time. Physical exam negative otherwise. Discussed bracing at night/posture while sleeping. # Patient does have bilateral shoulder pain. Declines red flag symptoms. Will start with x-rays, questioning arthritis. #Overactive bladder: Recently saw [employer] which discontinued tropsium 20 mg for overactive bladder, and started Gemtesa. Patient states that this is been working really well, trying to get authorization approved by [employer]. #Asthma: Patient following with Cyl[employer] Operator Apprentice Dr. Quinonez at [facility]. Patient advised to continue Advair Diskus 500-50 MCG/ACT BID, Singular 10 mg qhs, & hydrOXYzine HCl 10 mg qd per rubber mold maker's recommendation. Working on taking deep breaths. Filling [...] well, but the anxiety persists to varying degrees. #Low-density: Report from 02/2022 showed osteopenia of L hip with T score of -1.4. The lumbar spine was WNL with a T score of 1.8.Hesitant to use GLP-1's due to increased risk of sarcopenia. # Joint pain: ESR, CRP, Lyme negative. # Palpable mass soft tissue of the neck bilaterally, most likely lymph nodes, but will order ultrasound to be sure., Was not ordered last visit. # Mammogram negative. # Joint pain: Following orthopedics, osteoarthritis, right shoulder, may be candidate for replacement. Time sent with patient 30 minutes or [...] Dictation was accomplished with the use of [employer] voice recognition software, prone to medical misidentifications and grammatical errors. This is unintentional and the practitioner does try to identify and correct these, but some could still be present. Please do not hesitate to contact practitioner for clarification. 03/25/2024 BMI 30.0-30.9,adult (ICD-10 - Z68.30) 10/03/2022: Weight 202.1, BMI [...] to exercise regularly. #Overactive bladder: Recently saw [employer] which discontinued tropsium 20 mg for overactive bladder, and started Gemtesa. Patient states that this is been working really well, trying to get authorization approved by [employer]. #Asthma: Patient following with Cyl[employer] Operator Apprentice Dr. Quinonez at [facility]. Patient advised to continue Advair Diskus 500-50 MCG/ACT BID, Singular 10 mg qhs, & hydrOXYzine HCl 10 mg qd per rubber mold maker's recommendation. Working on taking deep breaths. Filling [...] Dictation was accomplished with the use of [employer] voice recognition software, prone to medical misidentifications [...] to exercise regularly. #Overactive bladder: Recently saw [employer] which discontinued tropsium 20 mg for overactive bladder, and started Gemtesa. Patient states that this is been working really well, trying to get authorization approved by [employer]. #Asthma: Patient following with Cyl[employer] Operator Apprentice Dr. Quinonez at [facility]. Patient advised to continue Advair Diskus 500-50 MCG/ACT BID, Singular 10 mg qhs, & hydrOXYzine HCl 10 mg qd per rubber mold maker's recommendation. Working on taking deep breaths. Filling [...] Dictation was accomplished with the use of [employer] voice recognition software, prone to medical misidentifications and grammatical errors. This is unintentional and the practitioner does try to identify and correct these, but some could still be present. Please do not hesitate to contact practitioner for clarification. 12/26/2023 Overactive bladder (ICD-10 - N32.81) 10/03/2022: Weight [...] ot naturally which is encouraged. Labs WNL. #Fatigue increased over last several weeks with associated heat intolerance. Patient has well-circumscribed solid oval thyroid nodule identified on US 10/25/23. # Occasional numbness/tingling of her hand while she is sleeping. Does have a history of extensive typing. Most likely carpal tunnel at this time. Physical exam negative otherwise. Discussed bracing at night/posture while sleeping. # Patient does have bilateral shoulder pain. Declines red flag symptoms. Will start with x-rays, questioning arthritis. #Overactive bladder: Recently saw [employer] which discontinued tropsium 20 mg for overactive bladder, and started Gemtesa. Patient states that this is been working really well, trying to get authorization approved by [employer]. #Asthma: Patient following with [employer] Apprentice Dr. Quinonez at [facility]. Patient advised to continue Advair Diskus 500-50 MCG/ACT BID, Singular 10 mg qhs, & hydrOXYzine HCl 10 mg qd per rubber mold maker's recommendation. Working on taking deep breaths. Filling [...] well, but the anxiety persists to varying degrees. #Low-density: Report from 02/2022 showed osteopenia of L hip with T score of -1.4. The lumbar spine was WNL with a T score of 1.8.Hesitant to use GLP-1's due to increased risk of sarcopenia. # Joint pain: ESR, CRP, Lyme negative. # Palpable mass soft tissue of the neck bilaterally, most likely lymph nodes, but will order ultrasound to be sure., Was not ordered last visit. # Mammogram negative. # Joint pain: Following orthopedics, osteoarthritis, right shoulder, may be candidate for replacement. Time sent with patient 30 minutes or [...] Dictation was accomplished with the use of [employer] voice recognition software, prone to medical misidentifications and grammatical errors. This is unintentional and the practitioner does try to identify and correct these, but some could still be present. Please do not hesitate to contact practitioner for clarification. 11/14/2023 BMI 30.0-30.9,adult (ICD-10 - Z68.30) 10/03/2022: Weight 202.1, BMI [...] more protein, 11/14/2023: Weight 167 pounds. BMI 28.7. Continues to follow lifestyle modifications for weight loss. Expresses concern for increased fatigue and heat intolerance. Will recheck thyroid function. Discussed medical management with patient and she will hold off at this time until next follow-up in 4-6 weeks. #Fatigue increased over last several weeks with associated heat intolerance. Patient has well-circumscribed solid oval thyroid nodule identified on US 10/25/23. Labs for TSH and reflex T3 and T4 ordered and will continue to follow and manage accordingly. # Occasional numbness/tingling of her hand while she is sleeping. Does have a history of extensive typing. Most likely carpal tunnel at this time. Physical exam negative otherwise. Discussed bracing at night/posture while sleeping. # Patient does have bilateral shoulder pain. Declines red flag symptoms. Will start with x-rays, questioning arthritis. #Overactive bladder: Recently saw [employer] which discontinued tropsium 20 mg for overactive bladder, and started Gemtesa. Patient states that this is been working really well, trying to get authorization approved by [employer]. #Asthma: Patient following with [employer] Apprentice Dr. Quinonez at [facility]. Patient advised to continue Advair Diskus 500-50 MCG/ACT BID, Singular 10 mg qhs, & hydrOXYzine HCl 10 mg qd per rubber mold maker's recommendation. Working on taking deep breaths. Filling [...] well, but the anxiety persists to varying degrees. #Low-density: Report from 02/2022 showed osteopenia of L hip with T score of -1.4. The lumbar spine was WNL with a T score of 1.8.Hesitant to use GLP-1's due to increased risk of sarcopenia. # Joint pain: ESR, CRP, Lyme negative. # Palpable mass soft tissue of the neck bilaterally, most likely lymph nodes, but will order ultrasound to be sure., Was not ordered last visit. # Mammogram negative. # Joint pain: Following orthopedics, osteoarthritis, right shoulder, may be candidate for replacement. Follow-up in November, sooner as needed. Ultrasound of the neck in the meantime. Time sent with patient 30 minutes or [...] Dictation was accomplished with the use of [employer] voice recognition software, prone to medical misidentifications and grammatical errors. This is unintentional and the practitioner does try to identify and correct these, but some could still be present. Please do not hesitate to contact practitioner for clarification. 10/11/2023 Overactive bladder (ICD-10 - N32.81) 10/03/2022: Weight [...] Continue with lifestyle changes, implementing more protein, # Occasional numbness/tingling of her hand while she is sleeping. Does have a history of extensive typing. Most likely carpal tunnel at this time. Physical exam negative otherwise. Discussed bracing at night/posture while sleeping. # Patient does have bilateral shoulder pain. Declines red flag symptoms. Will start with x-rays, questioning arthritis. #Overactive bladder: Recently saw [employer] which discontinued tropsium 20 mg for overactive bladder, and started Gemtesa. Patient states that this is been working really well, trying to get authorization approved by [employer]. #Asthma: Patient following with C[employer] Apprentice Dr. Quinonez at [facility]. Patient advised to continue Advair Diskus 500-50 MCG/ACT BID, Singular 10 mg qhs, & hydrOXYzine HCl 10 mg qd per rubber mold maker's recommendation. Working on taking deep breaths. Filling [...] well, but the anxiety persists to varying degrees. #Low-density: Report from 02/2022 showed osteopenia of L hip with T score of -1.4. The lumbar spine was WNL with a T score of 1.8.Hesitant to use GLP-1's due to increased risk of sarcopenia. # Joint pain: ESR, CRP, Lyme negative. # Palpable mass soft tissue of the neck bilaterally, most likely lymph nodes, but will order ultrasound to be sure., Was not ordered last visit. # Mammogram negative. # Joint pain: Following orthopedics, osteoarthritis, right shoulder, may be candidate for replacement. Follow-up in November, sooner as needed. Ultrasound of the neck in the meantime. Time sent with patient 30 minutes or [...] Dictation was accomplished with the use of [employer] voice recognition software, prone to medical misidentifications and grammatical errors. This is unintentional and the practitioner does try to identify and correct these, but some could still be present. Please do not hesitate to contact practitioner for clarification. 09/11/2023 BMI 30.0-30.9,adult (ICD-10 - Z68.30) Patient here for Medicare wellness visit. PHQ-9 a total score of 3, no concern regarding mental health at this time. Up-to-date on all routine screening and vaccines aside from mammogram for which we will order today. Healthcare proxy is her grandson. 10/03/2022: Weight 202.1, BMI 36.96 10/31/2022: Weight [...] it is sustainable. Losing slow, steady weight. # Occasional numbness/tingling of her hand while she is sleeping. Does have a history of extensive typing. Most likely carpal tunnel at this time. Physical exam negative otherwise. Discussed bracing at night/posture while sleeping. # Patient does have bilateral shoulder pain. Declines red flag symptoms. Will start with x-rays, questioning arthritis. #Overactive bladder: Recently saw [employer] which discontinued tropsium 20 mg for overactive bladder, and started Gemtesa. Patient states that this is been working really well, trying to get authorization approved by [employer]. #Asthma: Patient following with [employer] Apprentice Dr. Quinonez at [facility]. Patient advised to continue Advair Diskus 500-50 MCG/ACT BID, Singular 10 mg qhs, & hydrOXYzine HCl 10 mg qd per rubber mold maker's recommendation. Patient states that today's oxygen saturation of 93%. Working on taking deep breaths. Filling up [...] well, but the anxiety persists to varying degrees. #Low-density: Report from 02/2022 showed osteopenia of L hip with T score of -1.4. The lumbar spine was WNL with a T score of 1.8.Hesitant to use GLP-1's due to increased risk of sarcopenia. # Joint pain: ESR, CRP, Lyme negative. # Palpable mass soft tissue of the neck bilaterally, most likely lymph nodes, but will order ultrasound to be sure. Follow-up next month for weight management, sooner as needed. In the meantime ordering mammogram, bilateral shoulder x-rays, and ultrasound of neck. Time spent with patient 30 minutes greater than 50% of patient education and care coordination. Patient seen and examined. Comprehensive discussion was done on the following. 1. Nutrition: It is important to follow a healthy diet based on lots of vegetables and legumes and good fat. Avoid processed food and processed carbohydrates. Prepare your own meals. Read labels and avoid high fructose corn syrup, processed chemicals added to increase shelf life and preprepared meals. Avoid fast foods. Eat slowly and plan meals for a week. Try to count calories and be mindful off daily calorie intake. Get into the habit of keeping an eye on your weight by using an appropriate scale. Learn to log exercise and discussed fitness Apps like [employer] which can help keep log off calories taken versus calories burned. Local food should be preferred. Discussed Dirty Dozen Versus Clean Fifteen. Discussed healthy supplements like fish oil, Tumeric, Curcumin, Melatonin, Resveratrol, Probiotics, Vitamin-D, Alpha-Lipoic acid, Vitamin-D and coconut oil. 2. It is important to exercise regularly. Is a good habit to walk at least 30 minutes a day. Gentle weightlifting with standard precautions to protect the back. Finding activity like cycling or hiking and get into the habit of engaging in it. Stretching before and after the exercises important. It is also important to contact me if there are any problems like shortness of breath, chest pain, back pain and joint or muscle pain associated with the exercise. 3. Discussed age appropriate screening guidelines. Colonoscopy needs to start at age 50 with stool for occult blood as appropriate. There is a new test that can test for genetic abnormalities in the stool sample, Cologuard. This would not replace a colonoscopy but could be used as a screening tool for patients who do not want a colonoscopy. We discussed the importance of early detection of colon cancer. 4. Discussed current guidelines with respect to breast examination, mammogram and pap smear for early detection of breast and cervical cancer. Patient advised to follow up with these appointments. 5. Discussed safe driving and no use of smart phone while driving 6. Age-appropriate immunizations were discussed. A tetanus booster is needed every 10 years. Flu vaccine is recommended every year just before the start of the flu season. Shingles vaccine is recommended after age 50 but not all insurances cover it. Pneumonia vaccine is given after age 65 unless there are certain comorbidities for which it is started earlier. 7. Diagnostic labs were discussed. These could include/not limited to CBC CMP and lipids with fasting blood glucose and insulin levels. Vitamin D and hemoglobin A1c testing might be appropriate. 08/09/2023 Overactive bladder (ICD-10 - N32.81) Yulia, 72 y/o F, with PMH of HTN, asthma, vitamin D deficiency, overactive bladder, anxiety and depression presents for weight management f/u. 10/03/2022: Weight 202.1, BMI 36.96 10/31/2022: Weight [...] loss with 1 pound of muscle gain #OveractiveBladder: # Overactive bladder: Recently saw [employer] which discontinued tropsium 20 mg for overactive bladder, and started Gemtesa. Patient states that this is been working really well, trying to get authorization approved by [employer]. #Asthma: Patient following with [employer] Apprentice Dr. Quinonez at [facility]. Patient advised to continue Advair Diskus 500-50 MCG/ACT BID, Singular 10 mg qhs, & hydrOXYzine HCl 10 mg qd per rubber mold maker's recommendation. Patient states that today's oxygen saturation of 99% is the best she has ever had. #HTN: Advised to continue HydroCHLOROthiazide 25 mg qd and Losartan 50 mg qd.Monitor BP at home, adjust treatment as needed. Educated on the importance of blood pressure control. #VitaminDeficiency: The patient was advised to continue her vitamin D supplementation for her vitamin D deficiency. #Anxiety/Depression: Patient states that escitalopram 20 mg manages the depression well, but the anxiety persists to varying degrees. #Mammogram: Report from March 2022 showed no sign of malignancy. #Low-density: Report from 02/2022 showed osteopenia of L hip with T score of -1.4. The lumbar spine was WNL with a T score of 1.8.Hesitant to use GLP-1's due to increased risk of sarcopenia. #Labs: Printout from labs 07/2022 were WNL besides Total Cholesterol:219 mg/dL, LDL 139 mg/dL, CO2 34 mmol/L # Joint pain: Ordering labs prior to next visit including ESR, CRP, Lyme. Follow-up for physical in September, sooner as needed. Time spent with patient 30 minutes greater than 50% of patient education and care coordination. All quetsions answered to patients satisfaction. Patient verbalized understanding of diagnosis and treatments explained. To call sooner prior to next visit it any questions/concerns arise. Case discussed with collaborating physician Kleber Quach who reviewed the assessment and plan. Chart, medications, labs, vital signs reviewed. Dictation was accomplished with the use of [employer] voice recognition software, prone to medical misidentifications and grammatical errors. This is unintentional and the practitioner does try to identify and correct these, but some could still be present. Please do not hesitate to contact practitioner for clarification. 07/04/2023 Joint pain of leg (ICD-10 - M25.50) 07/03/2023 Overactive bladder (ICD-10 - N32.81) Yulia, 72 y/o F, with PMH of HTN, asthma, vitamin D deficiency, overactive bladder, anxiety and depression presents for weight management f/u. 10/03/2022: Weight 202.1, BMI 36.96 10/31/2022: Weight [...] M ICC injection today. Declined body scan. #OveractiveBladder: # Overactive bladder: Recently saw [employer] which discontinued tropsium 20 mg for overactive bladder, and started Gemtesa. Patient states that this is been working really well, trying to get authorization approved by [employer]. #Asthma: Patient following with [employer] Apprentice Dr. Quinonez at [facility]. Patient advised to continue Advair Diskus 500-50 MCG/ACT BID, Singular 10 mg qhs, & hydrOXYzine HCl 10 mg qd per rubber mold maker's recommendation. Patient states that today's oxygen saturation of 99% is the best she has ever had. #HTN: Advised to continue HydroCHLOROthiazide 25 mg qd and Losartan 50 mg qd.Monitor BP at home, adjust treatment as needed. Educated on the importance of blood pressure control. #VitaminDeficiency: The patient was advised to continue her vitamin D supplementation for her vitamin D deficiency. #Anxiety/Depression: Patient states that escitalopram 20 mg manages the depression well, but the anxiety persists to varying degrees. #Mammogram: Report from March 2022 showed no sign of malignancy. #Low-density: Report from 02/2022 showed osteopenia of L hip with T score of -1.4. The lumbar spine was WNL with a T score of 1.8.Hesitant to use GLP-1's due to increased risk of sarcopenia. #Labs: Printout from labs 07/2022 were WNL besides Total Cholesterol:219 mg/dL, LDL 139 mg/dL, CO2 34 mmol/L # Joint pain: Ordering labs prior to next visit including ESR, CRP, Lyme. Patient to follow-up in August for complete physical with labs, sooner as needed Time spent with patient 30 minutes greater than 50% of patient education and care coordination. All quetsions answered to patients satisfaction. Patient verbalized understanding of diagnosis and treatments explained. To call sooner prior to next visit it any questions/concerns arise. Case discussed with collaborating physician Kleber Quach who reviewed the assessment and plan. Chart, medications, labs, vital signs reviewed. Dictation was accomplished with the use of [employer] voice recognition software, prone to medical misidentifications and grammatical errors. This is unintentional and the practitioner does try to identify and correct these, but some could still be present. Please do not hesitate to contact practitioner for clarification. 07/03/2023 Mild intermittent asthma with status asthmaticus (ICD-10 - J45.22) Yulia, 72 y/o F, with PMH of HTN, asthma, vitamin D deficiency, overactive bladder, anxiety and depression presents for weight management f/u. 10/03/2022: Weight 202.1, BMI 36.96 10/31/2022: Weight [...] M ICC injection today. Declined body scan. #OveractiveBladder: # Overactive bladder: Recently saw [employer] which discontinued tropsium 20 mg for overactive bladder, and started Gemtesa. Patient states that this is been working really well, trying to get authorization approved by [employer]. #Asthma: Patient following with C[employer] Apprentice Dr. Quinonez at [facility]. Patient advised to continue Advair Diskus 500-50 MCG/ACT BID, Singular 10 mg qhs, & hydrOXYzine HCl 10 mg qd per rubber mold maker's recommendation. Patient states that today's oxygen saturation of 99% is the best she has ever had. #HTN: Advised to continue HydroCHLOROthiazide 25 mg qd and Losartan 50 mg qd.Monitor BP at home, adjust treatment as needed. Educated on the importance of blood pressure control. #VitaminDeficiency: The patient was advised to continue her vitamin D supplementation for her vitamin D deficiency. #Anxiety/Depression: Patient states that escitalopram 20 mg manages the depression well, but the anxiety persists to varying degrees. #Mammogram: Report from March 2022 showed no sign of malignancy. #Low-density: Report from 02/2022 showed osteopenia of L hip with T score of -1.4. The lumbar spine was WNL with a T score of 1.8.Hesitant to use GLP-1's due to increased risk of sarcopenia. #Labs: Printout from labs 07/2022 were WNL besides Total Cholesterol:219 mg/dL, LDL 139 mg/dL, CO2 34 mmol/L # Joint pain: Ordering labs prior to next visit including ESR, CRP, Lyme. Patient to follow-up in August for complete physical with labs, sooner as needed Time spent with patient 30 minutes greater than 50% of patient education and care coordination. All quetsions answered to patients satisfaction. Patient verbalized understanding of diagnosis and treatments explained. To call sooner prior to next visit it any questions/concerns arise. Case discussed with collaborating physician Kleber Quach who reviewed the assessment and plan. Chart, medications, labs, vital signs reviewed. Dictation was accomplished with the use of [employer] voice recognition software, prone to medical misidentifications and grammatical errors. This is unintentional and the practitioner does try to identify and correct these, but some could still be present. Please do not hesitate to contact practitioner for clarification. 07/04/2023 Lipid screening (ICD-10 - Z13.220) 08/09/2023 Mild intermittent asthma with status asthmaticus (ICD-10 - J45.22) Yulia, 72 y/o F, with PMH of HTN, asthma, vitamin D deficiency, overactive bladder, anxiety and depression presents for weight management f/u. 10/03/2022: Weight 202.1, BMI 36.96 10/31/2022: Weight [...] loss with 1 pound of muscle gain #OveractiveBladder: # Overactive bladder: Recently saw [employer] which discontinued tropsium 20 mg for overactive bladder, and started Gemtesa. Patient states that this is been working really well, trying to get authorization approved by [employer]. #Asthma: Patient following with [employer] Apprentice Dr. Quinonez at [facility]. Patient advised to continue Advair Diskus 500-50 MCG/ACT BID, Singular 10 mg qhs, & hydrOXYzine HCl 10 mg qd per rubber mold maker's recommendation. Patient states that today's oxygen saturation of 99% is the best she has ever had. #HTN: Advised to continue HydroCHLOROthiazide 25 mg qd and Losartan 50 mg qd.Monitor BP at home, adjust treatment as needed. Educated on the importance of blood pressure control. #VitaminDeficiency: The patient was advised to continue her vitamin D supplementation for her vitamin D deficiency. #Anxiety/Depression: Patient states that escitalopram 20 mg manages the depression well, but the anxiety persists to varying degrees. #Mammogram: Report from March 2022 showed no sign of malignancy. #Low-density: Report from 02/2022 showed osteopenia of L hip with T score of -1.4. The lumbar spine was WNL with a T score of 1.8.Hesitant to use GLP-1's due to increased risk of sarcopenia. #Labs: Printout from labs 07/2022 were WNL besides Total Cholesterol:219 mg/dL, LDL 139 mg/dL, CO2 34 mmol/L # Joint pain: Ordering labs prior to next visit including ESR, CRP, Lyme. Follow-up for physical in September, sooner as needed. Time spent with patient 30 minutes greater than 50% of patient education and care coordination. All quetsions answered to patients satisfaction. Patient verbalized understanding of diagnosis and treatments explained. To call sooner prior to next visit it any questions/concerns arise. Case discussed with collaborating physician Kleber Quach who reviewed the assessment and plan. Chart, medications, labs, vital signs reviewed. Dictation was accomplished with the use of [employer] voice recognition software, prone to medical misidentifications and grammatical errors. This is unintentional and the practitioner does try to identify and correct these, but some could still be present. Please do not hesitate to contact practitioner for clarification. 09/11/2023 Overactive bladder (ICD-10 - N32.81) Patient here for Medicare wellness visit. PHQ-9 a total score of 3, no concern regarding mental health at this time. Up-to-date on all routine screening and vaccines aside from mammogram for which we will order today. Healthcare proxy is her grandson. 10/03/2022: Weight 202.1, BMI 36.96 10/31/2022: Weight [...] it is sustainable. Losing slow, steady weight. # Occasional numbness/tingling of her hand while she is sleeping. Does have a history of extensive typing. Most likely carpal tunnel at this time. Physical exam negative otherwise. Discussed bracing at night/posture while sleeping. # Patient does have bilateral shoulder pain. Declines red flag symptoms. Will start with x-rays, questioning arthritis. #Overactive bladder: Recently saw [employer] which discontinued tropsium 20 mg for overactive bladder, and started Gemtesa. Patient states that this is been working really well, trying to get authorization approved by [employer]. #Asthma: Patient following with [employer] Apprentice Dr. Quinonez at [facility]. Patient advised to continue Advair Diskus 500-50 MCG/ACT BID, Singular 10 mg qhs, & hydrOXYzine HCl 10 mg qd per rubber mold maker's recommendation. Patient states that today's oxygen saturation of 93%. Working on taking deep breaths. Filling up [...] well, but the anxiety persists to varying degrees. #Low-density: Report from 02/2022 showed osteopenia of L hip with T score of -1.4. The lumbar spine was WNL with a T score of 1.8.Hesitant to use GLP-1's due to increased risk of sarcopenia. # Joint pain: ESR, CRP, Lyme negative. # Palpable mass soft tissue of the neck bilaterally, most likely lymph nodes, but will order ultrasound to be sure. Follow-up next month for weight management, sooner as needed. In the meantime ordering mammogram, bilateral shoulder x-rays, and ultrasound of neck. Time spent with patient 30 minutes greater than 50% of patient education and care coordination. Patient seen and examined. Comprehensive discussion was done on the following. 1. Nutrition: It is important to follow a healthy diet based on lots of vegetables and legumes and good fat. Avoid processed food and processed carbohydrates. Prepare your own meals. Read labels and avoid high fructose corn syrup, processed chemicals added to increase shelf life and preprepared meals. Avoid fast foods. Eat slowly and plan meals for a week. Try to count calories and be mindful off daily calorie intake. Get into the habit of keeping an eye on your weight by using an appropriate scale. Learn to log exercise and discussed fitness Apps like [employer] which can help keep log off calories taken versus calories burned. Local food should be preferred. Discussed Dirty [employer]zen Versus [employer]teen. Discussed healthy supplements like fish oil, Tumeric, Curcumin, Melatonin, Resveratrol, Probiotics, Vitamin-D, Alpha-Lipoic acid, Vitamin-D and coconut oil. 2. It is important to exercise regularly. Is a good habit to walk at least 30 minutes a day. Gentle weightlifting with standard precautions to protect the back. Finding activity like cycling or hiking and get into the habit of engaging in it. Stretching before and after the exercises important. It is also important to contact me if there are any problems like shortness of breath, chest pain, back pain and joint or muscle pain associated with the exercise. 3. Discussed age appropriate screening guidelines. Colonoscopy needs to start at age 50 with stool for occult blood as appropriate. There is a new test that can test for genetic abnormalities in the stool sample, Cologuard. This would not replace a colonoscopy but could be used as a screening tool for patients who do not want a colonoscopy. We discussed the importance of early detection of colon cancer. 4. Discussed current guidelines with respect to breast examination, mammogram and pap smear for early detection of breast and cervical cancer. Patient advised to follow up with these appointments. 5. Discussed safe driving and no use of smart phone while driving 6. Age-appropriate immunizations were discussed. A tetanus booster is needed every 10 years. Flu vaccine is recommended every year just before the start of the flu season. Shingles vaccine is recommended after age 50 but not all insurances cover it. Pneumonia vaccine is given after age 65 unless there are certain comorbidities for which it is started earlier. 7. Diagnostic labs were discussed. These could include/not limited to CBC CMP and lipids with fasting blood glucose and insulin levels. Vitamin D and hemoglobin A1c testing might be appropriate. 10/11/2023 Acute pain of left shoulder (ICD-10 - [...] Continue with lifestyle changes, implementing more protein, # Occasional numbness/tingling of her hand while she is sleeping. Does have a history of extensive typing. Most likely carpal tunnel at this time. Physical exam negative otherwise. Discussed bracing at night/posture while sleeping. # Patient does have bilateral shoulder pain. Declines red flag symptoms. Will start with x-rays, questioning arthritis. #Overactive bladder: Recently saw [employer] which discontinued tropsium 20 mg for overactive bladder, and started Gemtesa. Patient states that this is been working really well, trying to get authorization approved by [employer]. #Asthma: Patient following with Cyl[employer] Apprentice Dr. Quinonez at [facility]. Patient advised to continue Advair Diskus 500-50 MCG/ACT BID, Singular 10 mg qhs, & hydrOXYzine HCl 10 mg qd per rubber mold maker's recommendation. Working on taking deep breaths. Filling [...] well, but the anxiety persists to varying degrees. #Low-density: Report from 02/2022 showed osteopenia of L hip with T score of -1.4. The lumbar spine was WNL with a T score of 1.8.Hesitant to use GLP-1's due to increased risk of sarcopenia. # Joint pain: ESR, CRP, Lyme negative. # Palpable mass soft tissue of the neck bilaterally, most likely lymph nodes, but will order ultrasound to be sure., Was not ordered last visit. # Mammogram negative. # Joint pain: Following orthopedics, osteoarthritis, right shoulder, may be candidate for replacement. Follow-up in November, sooner as needed. Ultrasound of the neck in the meantime. Time sent with patient 30 minutes or [...] Dictation was accomplished with the use of [employer] voice recognition software, prone to medical misidentifications and grammatical errors. This is unintentional and the practitioner does try to identify and correct these, but some could still be present. Please do not hesitate to contact practitioner for clarification. 11/14/2023 Overactive bladder (ICD-10 - N32.81) 10/03/2022: Weight [...] more protein, 11/14/2023: Weight 167 pounds. BMI 28.7. Continues to follow lifestyle modifications for weight loss. Expresses concern for increased fatigue and heat intolerance. Will recheck thyroid function. Discussed medical management with patient and she will hold off at this time until next follow-up in 4-6 weeks. #Fatigue increased over last several weeks with associated heat intolerance. Patient has well-circumscribed solid oval thyroid nodule identified on US 10/25/23. Labs for TSH and reflex T3 and T4 ordered and will continue to follow and manage accordingly. # Occasional numbness/tingling of her hand while she is sleeping. Does have a history of extensive typing. Most likely carpal tunnel at this time. Physical exam negative otherwise. Discussed bracing at night/posture while sleeping. # Patient does have bilateral shoulder pain. Declines red flag symptoms. Will start with x-rays, questioning arthritis. #Overactive bladder: Recently saw [employer] which discontinued tropsium 20 mg for overactive bladder, and started Gemtesa. Patient states that this is been working really well, trying to get authorization approved by [employer]. #Asthma: Patient following with C[employer] Apprentice Dr. Quinonez at [facility]. Patient advised to continue Advair Diskus 500-50 MCG/ACT BID, Singular 10 mg qhs, & hydrOXYzine HCl 10 mg qd per rubber mold maker's recommendation. Working on taking deep breaths. Filling [...] well, but the anxiety persists to varying degrees. #Low-density: Report from 02/2022 showed osteopenia of L hip with T score of -1.4. The lumbar spine was WNL with a T score of 1.8.Hesitant to use GLP-1's due to increased risk of sarcopenia. # Joint pain: ESR, CRP, Lyme negative. # Palpable mass soft tissue of the neck bilaterally, most likely lymph nodes, but will order ultrasound to be sure., Was not ordered last visit. # Mammogram negative. # Joint pain: Following orthopedics, osteoarthritis, right shoulder, may be candidate for replacement. Follow-up in November, sooner as needed. Ultrasound of the neck in the meantime. Time sent with patient 30 minutes or [...] Dictation was accomplished with the use of [employer] voice recognition software, prone to medical misidentifications and grammatical errors. This is unintentional and the practitioner does try to identify and correct these, but some could still be present. Please do not hesitate to contact practitioner for clarification. 12/26/2023 Acute pain of left shoulder (ICD-10 - [...] ot naturally which is encouraged. Labs WNL. #Fatigue increased over last several weeks with associated heat intolerance. Patient has well-circumscribed solid oval thyroid nodule identified on US 10/25/23. # Occasional numbness/tingling of her hand while she is sleeping. Does have a history of extensive typing. Most likely carpal tunnel at this time. Physical exam negative otherwise. Discussed bracing at night/posture while sleeping. # Patient does have bilateral shoulder pain. Declines red flag symptoms. Will start with x-rays, questioning arthritis. #Overactive bladder: Recently saw [employer] which discontinued tropsium 20 mg for overactive bladder, and started Gemtesa. Patient states that this is been working really well, trying to get authorization approved by [employer]. #Asthma: Patient following with [employer] Apprentice Dr. Quinonez at [facility]. Patient advised to continue Advair Diskus 500-50 MCG/ACT BID, Singular 10 mg qhs, & hydrOXYzine HCl 10 mg qd per rubber mold maker's recommendation. Working on taking deep breaths. Filling [...] well, but the anxiety persists to varying degrees. #Low-density: Report from 02/2022 showed osteopenia of L hip with T score of -1.4. The lumbar spine was WNL with a T score of 1.8.Hesitant to use GLP-1's due to increased risk of sarcopenia. # Joint pain: ESR, CRP, Lyme negative. # Palpable mass soft tissue of the neck bilaterally, most likely lymph nodes, but will order ultrasound to be sure., Was not ordered last visit. # Mammogram negative. # Joint pain: Following orthopedics, osteoarthritis, right shoulder, may be candidate for replacement. Time sent with patient 30 minutes or [...] Dictation was accomplished with the use of [employer] voice recognition software, prone to medical misidentifications [...] to exercise regularly. #Overactive bladder: Recently saw [employer] which discontinued tropsium 20 mg for overactive bladder, and started Gemtesa. Patient states that this is been working really well, trying to get authorization approved by [employer]. #Asthma: Patient following with C[employer] App[employer]ice Dr. Quinonez at [facility]. Patient advised to continue Advair Diskus 500-50 MCG/ACT BID, Singular 10 mg qhs, & hydrOXYzine HCl 10 mg qd per rubber mold maker's recommendation. Working on taking deep breaths. Filling [...] Dictation was accomplished with the use of [employer] voice recognition software, prone to medical misidentifications and grammatical errors. This is unintentional and the practitioner does try to identify and correct these, but some could still be present. Please do not hesitate to contact practitioner for clarification. 12/26/2023 Pain, joint, shoulder, right (ICD-10 - M25.511) [...] ot naturally which is encouraged. Labs WNL. #Fatigue increased over last several weeks with associated heat intolerance. Patient has well-circumscribed solid oval thyroid nodule identified on US 10/25/23. # Occasional numbness/tingling of her hand while she is sleeping. Does have a history of extensive typing. Most likely carpal tunnel at this time. Physical exam negative otherwise. Discussed bracing at night/posture while sleeping. # Patient does have bilateral shoulder pain. Declines red flag symptoms. Will start with x-rays, questioning arthritis. #Overactive bladder: Recently saw [employer] which discontinued tropsium 20 mg for overactive bladder, and started Gemtesa. Patient states that this is been working really well, trying to get authorization approved by [employer]. #Asthma: Patient following with [employer] App[employer]ice Dr. Quinonez at [facility]. Patient advised to continue Advair Diskus 500-50 MCG/ACT BID, Singular 10 mg qhs, & hydrOXYzine HCl 10 mg qd per rubber mold maker's recommendation. Working on taking deep breaths. Filling [...] well, but the anxiety persists to varying degrees. #Low-density: Report from 02/2022 showed osteopenia of L hip with T score of -1.4. The lumbar spine was WNL with a T score of 1.8.Hesitant to use GLP-1's due to increased risk of sarcopenia. # Joint pain: ESR, CRP, Lyme negative. # Palpable mass soft tissue of the neck bilaterally, most likely lymph nodes, but will order ultrasound to be sure., Was not ordered last visit. # Mammogram negative. # Joint pain: Following orthopedics, osteoarthritis, right shoulder, may be candidate for replacement. Time sent with patient 30 minutes or [...] Dictation was accomplished with the use of [employer] voice recognition software, prone to medical misidentifications [...] to exercise regularly. #Overactive bladder: Recently saw [employer] which discontinued tropsium 20 mg for overactive bladder, and started Gemtesa. Patient states that this is been working really well, trying to get authorization approved by [employer]. #Asthma: Patient following with [employer] Apprentice Dr. Quinonez at [facility]. Patient advised to continue Advair Diskus 500-50 MCG/ACT BID, Singular 10 mg qhs, & hydrOXYzine HCl 10 mg qd per rubber mold maker's recommendation. Working on taking deep breaths. Filling [...] Dictation was accomplished with the use of [employer] voice recognition software, prone to medical misidentifications and grammatical errors. This is unintentional and the practitioner does try to identify and correct these, but some could still be present. Please do not hesitate to contact practitioner for clarification. 11/14/2023 Acute pain of left shoulder (ICD-10 - [...] more protein, 11/14/2023: Weight 167 pounds. BMI 28.7. Continues to follow lifestyle modifications for weight loss. Expresses concern for increased fatigue and heat intolerance. Will recheck thyroid function. Discussed medical management with patient and she will hold off at this time until next follow-up in 4-6 weeks. #Fatigue increased over last several weeks with associated heat intolerance. Patient has well-circumscribed solid oval thyroid nodule identified on US 10/25/23. Labs for TSH and reflex T3 and T4 ordered and will continue to follow and manage accordingly. # Occasional numbness/tingling of her hand while she is sleeping. Does have a history of extensive typing. Most likely carpal tunnel at this time. Physical exam negative otherwise. Discussed bracing at night/posture while sleeping. # Patient does have bilateral shoulder pain. Declines red flag symptoms. Will start with x-rays, questioning arthritis. #Overactive bladder: Recently saw [employer] which discontinued tropsium 20 mg for overactive bladder, and started Gemtesa. Patient states that this is been working really well, trying to get authorization approved by [employer]. #Asthma: Patient following with [employer] Apprentice Dr. Quinonez at [facility]. Patient advised to continue Advair Diskus 500-50 MCG/ACT BID, Singular 10 mg qhs, & hydrOXYzine HCl 10 mg qd per rubber mold maker's recommendation. Working on taking deep breaths. Filling [...] well, but the anxiety persists to varying degrees. #Low-density: Report from 02/2022 showed osteopenia of L hip with T score of -1.4. The lumbar spine was WNL with a T score of 1.8.Hesitant to use GLP-1's due to increased risk of sarcopenia. # Joint pain: ESR, CRP, Lyme negative. # Palpable mass soft tissue of the neck bilaterally, most likely lymph nodes, but will order ultrasound to be sure., Was not ordered last visit. # Mammogram negative. # Joint pain: Following orthopedics, osteoarthritis, right shoulder, may be candidate for replacement. Follow-up in November, sooner as needed. Ultrasound of the neck in the meantime. Time sent with patient 30 minutes or [...] Dictation was accomplished with the use of [employer] voice recognition software, prone to medical misidentifications and grammatical errors. This is unintentional and the practitioner does try to identify and correct these, but some could still be present. Please do not hesitate to contact practitioner for clarification. 09/11/2023 Acute pain of left shoulder (ICD-10 - M25.512) Patient here for Medicare wellness visit. PHQ-9 a total score of 3, no concern regarding mental health at this time. Up-to-date on all routine screening and vaccines aside from mammogram for which we will order today. Healthcare proxy is her grandson. 10/03/2022: Weight 202.1, BMI 36.96 10/31/2022: Weight [...] it is sustainable. Losing slow, steady weight. # Occasional numbness/tingling of her hand while she is sleeping. Does have a history of extensive typing. Most likely carpal tunnel at this time. Physical exam negative otherwise. Discussed bracing at night/posture while sleeping. # Patient does have bilateral shoulder pain. Declines red flag symptoms. Will start with x-rays, questioning arthritis. #Overactive bladder: Recently saw [employer] which discontinued tropsium 20 mg for overactive bladder, and started Gemtesa. Patient states that this is been working really well, trying to get authorization approved by [employer]. #Asthma: Patient following with C[employer] Apprentice Dr. Quinonez at [facility]. Patient advised to continue Advair Diskus 500-50 MCG/ACT BID, Singular 10 mg qhs, & hydrOXYzine HCl 10 mg qd per rubber mold maker's recommendation. Patient states that today's oxygen saturation of 93%. Working on taking deep breaths. Filling up [...] well, but the anxiety persists to varying degrees. #Low-density: Report from 02/2022 showed osteopenia of L hip with T score of -1.4. The lumbar spine was WNL with a T score of 1.8.Hesitant to use GLP-1's due to increased risk of sarcopenia. # Joint pain: ESR, CRP, Lyme negative. # Palpable mass soft tissue of the neck bilaterally, most likely lymph nodes, but will order ultrasound to be sure. Follow-up next month for weight management, sooner as needed. In the meantime ordering mammogram, bilateral shoulder x-rays, and ultrasound of neck. Time spent with patient 30 minutes greater than 50% of patient education and care coordination. Patient seen and examined. Comprehensive discussion was done on the following. 1. Nutrition: It is important to follow a healthy diet based on lots of vegetables and legumes and good fat. Avoid processed food and processed carbohydrates. Prepare your own meals. Read labels and avoid high fructose corn syrup, processed chemicals added to increase shelf life and preprepared meals. Avoid fast foods. Eat slowly and plan meals for a week. Try to count calories and be mindful off daily calorie intake. Get into the habit of keeping an eye on your weight by using an appropriate scale. Learn to log exercise and discussed fitness Apps like [employer] which can help keep log off calories taken versus calories burned. Local food should be preferred. Discussed Dirty Dozen Versus [employer] Fifteen. Discussed healthy supplements like fish oil, Tumeric, Curcumin, Melatonin, Resveratrol, Probiotics, Vitamin-D, Alpha-Lipoic acid, Vitamin-D and coconut oil. 2. It is important to exercise regularly. Is a good habit to walk at least 30 minutes a day. Gentle weightlifting with standard precautions to protect the back. Finding activity like cycling or hiking and get into the habit of engaging in it. Stretching before and after the exercises important. It is also important to contact me if there are any problems like shortness of breath, chest pain, back pain and joint or muscle pain associated with the exercise. 3. Discussed age appropriate screening guidelines. Colonoscopy needs to start at age 50 with stool for occult blood as appropriate. There is a new test that can test for genetic abnormalities in the stool sample, Cologuard. This would not replace a colonoscopy but could be used as a screening tool for patients who do not want a colonoscopy. We discussed the importance of early detection of colon cancer. 4. Discussed current guidelines with respect to breast examination, mammogram and pap smear for early detection of breast and cervical cancer. Patient advised to follow up with these appointments. 5. Discussed safe driving and no use of smart phone while driving 6. Age-appropriate immunizations were discussed. A tetanus booster is needed every 10 years. Flu vaccine is recommended every year just before the start of the flu season. Shingles vaccine is recommended after age 50 but not all insurances cover it. Pneumonia vaccine is given after age 65 unless there are certain comorbidities for which it is started earlier. 7. Diagnostic labs were discussed. These could include/not limited to CBC CMP and lipids with fasting blood glucose and insulin levels. Vitamin D and hemoglobin A1c testing might be appropriate. 10/11/2023 Pain, joint, shoulder, right (ICD-10 - M25.511) [...] Continue with lifestyle changes, implementing more protein, # Occasional numbness/tingling of her hand while she is sleeping. Does have a history of extensive typing. Most likely carpal tunnel at this time. Physical exam negative otherwise. Discussed bracing at night/posture while sleeping. # Patient does have bilateral shoulder pain. Declines red flag symptoms. Will start with x-rays, questioning arthritis. #Overactive bladder: Recently saw [employer] which discontinued tropsium 20 mg for overactive bladder, and started Gemtesa. Patient states that this is been working really well, trying to get authorization approved by [employer]. #Asthma: Patient following with [employer] Apprentice Dr. Quinonez at [facility]. Patient advised to continue Advair Diskus 500-50 MCG/ACT BID, Singular 10 mg qhs, & hydrOXYzine HCl 10 mg qd per rubber mold maker's recommendation. Working on taking deep breaths. Filling [...] well, but the anxiety persists to varying degrees. #Low-density: Report from 02/2022 showed osteopenia of L hip with T score of -1.4. The lumbar spine was WNL with a T score of 1.8.Hesitant to use GLP-1's due to increased risk of sarcopenia. # Joint pain: ESR, CRP, Lyme negative. # Palpable mass soft tissue of the neck bilaterally, most likely lymph nodes, but will order ultrasound to be sure., Was not ordered last visit. # Mammogram negative. # Joint pain: Following orthopedics, osteoarthritis, right shoulder, may be candidate for replacement. Follow-up in November, sooner as needed. Ultrasound of the neck in the meantime. Time sent with patient 30 minutes or [...] Dictation was accomplished with the use of [employer] voice recognition software, prone to medical misidentifications and grammatical errors. This is unintentional and the practitioner does try to identify and correct these, but some could still be present. Please do not hesitate to contact practitioner for clarification. 07/03/2023 Hypertension, unspecified type (ICD-10 - I10) Yulia, 72 y/o F, with PMH of HTN, asthma, vitamin D deficiency, overactive bladder, anxiety and depression presents for weight management f/u. 10/03/2022: Weight 202.1, BMI 36.96 10/31/2022: Weight [...] M ICC injection today. Declined body scan. #OveractiveBladder: # Overactive bladder: Recently saw [employer] which discontinued tropsium 20 mg for overactive bladder, and started Gemtesa. Patient states that this is been working really well, trying to get authorization approved by [employer]. #Asthma: Patient following with C[employer] Apprentice Dr. Quinonez at [facility]. Patient advised to continue Advair Diskus 500-50 MCG/ACT BID, Singular 10 mg qhs, & hydrOXYzine HCl 10 mg qd per rubber mold maker's recommendation. Patient states that today's oxygen saturation of 99% is the best she has ever had. #HTN: Advised to continue HydroCHLOROthiazide 25 mg qd and Losartan 50 mg qd.Monitor BP at home, adjust treatment as needed. Educated on the importance of blood pressure control. #VitaminDeficiency: The patient was advised to continue her vitamin D supplementation for her vitamin D deficiency. #Anxiety/Depression: Patient states that escitalopram 20 mg manages the depression well, but the anxiety persists to varying degrees. #Mammogram: Report from March 2022 showed no sign of malignancy. #Low-density: Report from 02/2022 showed osteopenia of L hip with T score of -1.4. The lumbar spine was WNL with a T score of 1.8.Hesitant to use GLP-1's due to increased risk of sarcopenia. #Labs: Printout from labs 07/2022 were WNL besides Total Cholesterol:219 mg/dL, LDL 139 mg/dL, CO2 34 mmol/L # Joint pain: Ordering labs prior to next visit including ESR, CRP, Lyme. Patient to follow-up in August for complete physical with labs, sooner as needed Time spent with patient 30 minutes greater than 50% of patient education and care coordination. All quetsions answered to patients satisfaction. Patient verbalized understanding of diagnosis and treatments explained. To call sooner prior to next visit it any questions/concerns arise. Case discussed with collaborating physician Kleber Quach who reviewed the assessment and plan. Chart, medications, labs, vital signs reviewed. Dictation was accomplished with the use of [employer] voice recognition software, prone to medical misidentifications and grammatical errors. This is unintentional and the practitioner does try to identify and correct these, but some could still be present. Please do not hesitate to contact practitioner for clarification. 08/09/2023 Hypertension, unspecified type (ICD-10 - I10) Yulia, 72 y/o F, with PMH of HTN, asthma, vitamin D deficiency, overactive bladder, anxiety and depression presents for weight management f/u. 10/03/2022: Weight 202.1, BMI 36.96 10/31/2022: Weight [...] loss with 1 pound of muscle gain #OveractiveBladder: # Overactive bladder: Recently saw [employer] which discontinued tropsium 20 mg for overactive bladder, and started Gemtesa. Patient states that this is been working really well, trying to get authorization approved by [employer]. #Asthma: Patient following with [employer] Apprentice Dr. Quinonez at [facility]. Patient advised to continue Advair Diskus 500-50 MCG/ACT BID, Singular 10 mg qhs, & hydrOXYzine HCl 10 mg qd per rubber mold maker's recommendation. Patient states that today's oxygen saturation of 99% is the best she has ever had. #HTN: Advised to continue HydroCHLOROthiazide 25 mg qd and Losartan 50 mg qd.Monitor BP at home, adjust treatment as needed. Educated on the importance of blood pressure control. #VitaminDeficiency: The patient was advised to continue her vitamin D supplementation for her vitamin D deficiency. #Anxiety/Depression: Patient states that escitalopram 20 mg manages the depression well, but the anxiety persists to varying degrees. #Mammogram: Report from March 2022 showed no sign of malignancy. #Low-density: Report from 02/2022 showed osteopenia of L hip with T score of -1.4. The lumbar spine was WNL with a T score of 1.8.Hesitant to use GLP-1's due to increased risk of sarcopenia. #Labs: Printout from labs 07/2022 were WNL besides Total Cholesterol:219 mg/dL, LDL 139 mg/dL, CO2 34 mmol/L # Joint pain: Ordering labs prior to next visit including ESR, CRP, Lyme. Follow-up for physical in September, sooner as needed. Time spent with patient 30 minutes greater than 50% of patient education and care coordination. All quetsions answered to patients satisfaction. Patient verbalized understanding of diagnosis and treatments explained. To call sooner prior to next visit it any questions/concerns arise. Case discussed with collaborating physician Kleber Quach who reviewed the assessment and plan. Chart, medications, labs, vital signs reviewed. Dictation was accomplished with the use of [employer] voice recognition software, prone to medical misidentifications and grammatical errors. This is unintentional and the practitioner does try to identify and correct these, but some could still be present. Please do not hesitate to contact practitioner for clarification. 07/03/2023 Vitamin D deficiency (ICD-10 - E55.9) Yulia, 72 y/o F, with PMH of HTN, asthma, vitamin D deficiency, overactive bladder, anxiety and depression presents for weight management f/u. 10/03/2022: Weight 202.1, BMI 36.96 10/31/2022: Weight [...] M ICC injection today. Declined body scan. #OveractiveBladder: # Overactive bladder: Recently saw [employer] which discontinued tropsium 20 mg for overactive bladder, and started Gemtesa. Patient states that this is been working really well, trying to get authorization approved by [employer]. #Asthma: Patient following with [employer] App[employer]ice Dr. Quinonez at [facility]. Patient advised to continue Advair Diskus 500-50 MCG/ACT BID, Singular 10 mg qhs, & hydrOXYzine HCl 10 mg qd per rubber mold maker's recommendation. Patient states that today's oxygen saturation of 99% is the best she has ever had. #HTN: Advised to continue HydroCHLOROthiazide 25 mg qd and Losartan 50 mg qd.Monitor BP at home, adjust treatment as needed. Educated on the importance of blood pressure control. #VitaminDeficiency: The patient was advised to continue her vitamin D supplementation for her vitamin D deficiency. #Anxiety/Depression: Patient states that escitalopram 20 mg manages the depression well, but the anxiety persists to varying degrees. #Mammogram: Report from March 2022 showed no sign of malignancy. #Low-density: Report from 02/2022 showed osteopenia of L hip with T score of -1.4. The lumbar spine was WNL with a T score of 1.8.Hesitant to use GLP-1's due to increased risk of sarcopenia. #Labs: Printout from labs 07/2022 were WNL besides Total Cholesterol:219 mg/dL, LDL 139 mg/dL, CO2 34 mmol/L # Joint pain: Ordering labs prior to next visit including ESR, CRP, Lyme. Patient to follow-up in August for complete physical with labs, sooner as needed Time spent with patient 30 minutes greater than 50% of patient education and care coordination. All quetsions answered to patients satisfaction. Patient verbalized understanding of diagnosis and treatments explained. To call sooner prior to next visit it any questions/concerns arise. Case discussed with collaborating physician Kleber Quach who reviewed the assessment and plan. Chart, medications, labs, vital signs reviewed. Dictation was accomplished with the use of [employer] voice recognition software, prone to medical misidentifications and grammatical errors. This is unintentional and the practitioner does try to identify and correct these, but some could still be present. Please do not hesitate to contact practitioner for clarification. 08/09/2023 Vitamin D deficiency (ICD-10 - E55.9) Yulia, 72 y/o F, with PMH of HTN, asthma, vitamin D deficiency, overactive bladder, anxiety and depression presents for weight management f/u. 10/03/2022: Weight 202.1, BMI 36.96 10/31/2022: Weight [...] loss with 1 pound of muscle gain #OveractiveBladder: # Overactive bladder: Recently saw [employer] which discontinued tropsium 20 mg for overactive bladder, and started Gemtesa. Patient states that this is been working really well, trying to get authorization approved by [employer]. #Asthma: Patient following with [employer] App[employer]ice Dr. Quinonez at [facility]. Patient advised to continue Advair Diskus 500-50 MCG/ACT BID, Singular 10 mg qhs, & hydrOXYzine HCl 10 mg qd per rubber mold maker's recommendation. Patient states that today's oxygen saturation of 99% is the best she has ever had. #HTN: Advised to continue HydroCHLOROthiazide 25 mg qd and Losartan 50 mg qd.Monitor BP at home, adjust treatment as needed. Educated on the importance of blood pressure control. #VitaminDeficiency: The patient was advised to continue her vitamin D supplementation for her vitamin D deficiency. #Anxiety/Depression: Patient states that escitalopram 20 mg manages the depression well, but the anxiety persists to varying degrees. #Mammogram: Report from March 2022 showed no sign of malignancy. #Low-density: Report from 02/2022 showed osteopenia of L hip with T score of -1.4. The lumbar spine was WNL with a T score of 1.8.Hesitant to use GLP-1's due to increased risk of sarcopenia. #Labs: Printout from labs 07/2022 were WNL besides Total Cholesterol:219 mg/dL, LDL 139 mg/dL, CO2 34 mmol/L # Joint pain: Ordering labs prior to next visit including ESR, CRP, Lyme. Follow-up for physical in September, sooner as needed. Time spent with patient 30 minutes greater than 50% of patient education and care coordination. All quetsions answered to patients satisfaction. Patient verbalized understanding of diagnosis and treatments explained. To call sooner prior to next visit it any questions/concerns arise. Case discussed with collaborating physician Kleber Quach who reviewed the assessment and plan. Chart, medications, labs, vital signs reviewed. Dictation was accomplished with the use of [employer] voice recognition software, prone to medical misidentifications and grammatical errors. This is unintentional and the practitioner does try to identify and correct these, but some could still be present. Please do not hesitate to contact practitioner for clarification. 09/11/2023 Pain, joint, shoulder, right (ICD-10 - M25.511) Patient here for Medicare wellness visit. PHQ-9 a total score of 3, no concern regarding mental health at this time. Up-to-date on all routine screening and vaccines aside from mammogram for which we will order today. Healthcare proxy is her grandson. 10/03/2022: Weight 202.1, BMI 36.96 10/31/2022: Weight [...] it is sustainable. Losing slow, steady weight. # Occasional numbness/tingling of her hand while she is sleeping. Does have a history of extensive typing. Most likely carpal tunnel at this time. Physical exam negative otherwise. Discussed bracing at night/posture while sleeping. # Patient does have bilateral shoulder pain. Declines red flag symptoms. Will start with x-rays, questioning arthritis. #Overactive bladder: Recently saw [employer] which discontinued tropsium 20 mg for overactive bladder, and started Gemtesa. Patient states that this is been working really well, trying to get authorization approved by [employer]. #Asthma: Patient following with [employer] App[employer]ice Dr. Quinonez at [facility]. Patient advised to continue Advair Diskus 500-50 MCG/ACT BID, Singular 10 mg qhs, & hydrOXYzine HCl 10 mg qd per rubber mold maker's recommendation. Patient states that today's oxygen saturation of 93%. Working on taking deep breaths. Filling up [...] well, but the anxiety persists to varying degrees. #Low-density: Report from 02/2022 showed osteopenia of L hip with T score of -1.4. The lumbar spine was WNL with a T score of 1.8.Hesitant to use GLP-1's due to increased risk of sarcopenia. # Joint pain: ESR, CRP, Lyme negative. # Palpable mass soft tissue of the neck bilaterally, most likely lymph nodes, but will order ultrasound to be sure. Follow-up next month for weight management, sooner as needed. In the meantime ordering mammogram, bilateral shoulder x-rays, and ultrasound of neck. Time spent with patient 30 minutes greater than 50% of patient education and care coordination. Patient seen and examined. Comprehensive discussion was done on the following. 1. Nutrition: It is important to follow a healthy diet based on lots of vegetables and legumes and good fat. Avoid processed food and processed carbohydrates. Prepare your own meals. Read labels and avoid high fructose corn syrup, processed chemicals added to increase shelf life and preprepared meals. Avoid fast foods. Eat slowly and plan meals for a week. Try to count calories and be mindful off daily calorie intake. Get into the habit of keeping an eye on your weight by using an appropriate scale. Learn to log exercise and discussed fitness Apps like [employer] which can help keep log off calories taken versus calories burned. Local food should be preferred. Discussed Dirty Dozen Versus Clean Fifteen. Discussed healthy supplements like fish oil, Tumeric, Curcumin, Melatonin, Resveratrol, Probiotics, Vitamin-D, Alpha-Lipoic acid, Vitamin-D and coconut oil. 2. It is important to exercise regularly. Is a good habit to walk at least 30 minutes a day. Gentle weightlifting with standard precautions to protect the back. Finding activity like cycling or hiking and get into the habit of engaging in it. Stretching before and after the exercises important. It is also important to contact me if there are any problems like shortness of breath, chest pain, back pain and joint or muscle pain associated with the exercise. 3. Discussed age appropriate screening guidelines. Colonoscopy needs to start at age 50 with stool for occult blood as appropriate. There is a new test that can test for genetic abnormalities in the stool sample, Cologuard. This would not replace a colonoscopy but could be used as a screening tool for patients who do not want a colonoscopy. We discussed the importance of early detection of colon cancer. 4. Discussed current guidelines with respect to breast examination, mammogram and pap smear for early detection of breast and cervical cancer. Patient advised to follow up with these appointments. 5. Discussed safe driving and no use of smart phone while driving 6. Age-appropriate immunizations were discussed. A tetanus booster is needed every 10 years. Flu vaccine is recommended every year just before the start of the flu season. Shingles vaccine is recommended after age 50 but not all insurances cover it. Pneumonia vaccine is given after age 65 unless there are certain comorbidities for which it is started earlier. 7. Diagnostic labs were discussed. These could include/not limited to CBC CMP and lipids with fasting blood glucose and insulin levels. Vitamin D and hemoglobin A1c testing might be appropriate. 10/11/2023 Palpable mass of neck (ICD-10 - R22.1) [...] Continue with lifestyle changes, implementing more protein, # Occasional numbness/tingling of her hand while she is sleeping. Does have a history of extensive typing. Most likely carpal tunnel at this time. Physical exam negative otherwise. Discussed bracing at night/posture while sleeping. # Patient does have bilateral shoulder pain. Declines red flag symptoms. Will start with x-rays, questioning arthritis. #Overactive bladder: Recently saw [employer] which discontinued tropsium 20 mg for overactive bladder, and started Gemtesa. Patient states that this is been working really well, trying to get authorization approved by [employer]. #Asthma: Patient following with [employer] Apprentice Dr. Quinonez at [facility]. Patient advised to continue Advair Diskus 500-50 MCG/ACT BID, Singular 10 mg qhs, & hydrOXYzine HCl 10 mg qd per rubber mold maker's recommendation. Working on taking deep breaths. Filling [...] well, but the anxiety persists to varying degrees. #Low-density: Report from 02/2022 showed osteopenia of L hip with T score of -1.4. The lumbar spine was WNL with a T score of 1.8.Hesitant to use GLP-1's due to increased risk of sarcopenia. # Joint pain: ESR, CRP, Lyme negative. # Palpable mass soft tissue of the neck bilaterally, most likely lymph nodes, but will order ultrasound to be sure., Was not ordered last visit. # Mammogram negative. # Joint pain: Following orthopedics, osteoarthritis, right shoulder, may be candidate for replacement. Follow-up in November, sooner as needed. Ultrasound of the neck in the meantime. Time sent with patient 30 minutes or [...] Dictation was accomplished with the use of [employer] voice recognition software, prone to medical misidentifications and grammatical errors. This is unintentional and the practitioner does try to identify and correct these, but some could still be present. Please do not hesitate to contact practitioner for clarification. 11/14/2023 Pain, joint, shoulder, right (ICD-10 - M25.511) [...] more protein, 11/14/2023: Weight 167 pounds. BMI 28.7. Continues to follow lifestyle modifications for weight loss. Expresses concern for increased fatigue and heat intolerance. Will recheck thyroid function. Discussed medical management with patient and she will hold off at this time until next follow-up in 4-6 weeks. #Fatigue increased over last several weeks with associated heat intolerance. Patient has well-circumscribed solid oval thyroid nodule identified on US 10/25/23. Labs for TSH and reflex T3 and T4 ordered and will continue to follow and manage accordingly. # Occasional numbness/tingling of her hand while she is sleeping. Does have a history of extensive typing. Most likely carpal tunnel at this time. Physical exam negative otherwise. Discussed bracing at night/posture while sleeping. # Patient does have bilateral shoulder pain. Declines red flag symptoms. Will start with x-rays, questioning arthritis. #Overactive bladder: Recently saw [employer] which discontinued tropsium 20 mg for overactive bladder, and started Gemtesa. Patient states that this is been working really well, trying to get authorization approved by [employer]. #Asthma: Patient following with [employer] Apprentice Dr. Quinonez at [facility]. Patient advised to continue Advair Diskus 500-50 MCG/ACT BID, Singular 10 mg qhs, & hydrOXYzine HCl 10 mg qd per rubber mold maker's recommendation. Working on taking deep breaths. Filling [...] well, but the anxiety persists to varying degrees. #Low-density: Report from 02/2022 showed osteopenia of L hip with T score of -1.4. The lumbar spine was WNL with a T score of 1.8.Hesitant to use GLP-1's due to increased risk of sarcopenia. # Joint pain: ESR, CRP, Lyme negative. # Palpable mass soft tissue of the neck bilaterally, most likely lymph nodes, but will order ultrasound to be sure., Was not ordered last visit. # Mammogram negative. # Joint pain: Following orthopedics, osteoarthritis, right shoulder, may be candidate for replacement. Follow-up in November, sooner as needed. Ultrasound of the neck in the meantime. Time sent with patient 30 minutes or [...] Dictation was accomplished with the use of [employer] voice recognition software, prone to medical misidentifications and grammatical errors. This is unintentional and the practitioner does try to identify and correct these, but some could still be present. Please do not hesitate to contact practitioner for clarification. 12/26/2023 Palpable mass of neck (ICD-10 - R22.1) [...] ot naturally which is encouraged. Labs WNL. #Fatigue increased over last several weeks with associated heat intolerance. Patient has well-circumscribed solid oval thyroid nodule identified on US 10/25/23. # Occasional numbness/tingling of her hand while she is sleeping. Does have a history of extensive typing. Most likely carpal tunnel at this time. Physical exam negative otherwise. Discussed bracing at night/posture while sleeping. # Patient does have bilateral shoulder pain. Declines red flag symptoms. Will start with x-rays, questioning arthritis. #Overactive bladder: Recently saw [employer] which discontinued tropsium 20 mg for overactive bladder, and started Gemtesa. Patient states that this is been working really well, trying to get authorization approved by [employer]. #Asthma: Patient following with [employer] Apprentice Dr. Quinonez at [facility]. Patient advised to continue Advair Diskus 500-50 MCG/ACT BID, Singular 10 mg qhs, & hydrOXYzine HCl 10 mg qd per rubber mold maker's recommendation. Working on taking deep breaths. Filling [...] well, but the anxiety persists to varying degrees. #Low-density: Report from 02/2022 showed osteopenia of L hip with T score of -1.4. The lumbar spine was WNL with a T score of 1.8.Hesitant to use GLP-1's due to increased risk of sarcopenia. # Joint pain: ESR, CRP, Lyme negative. # Palpable mass soft tissue of the neck bilaterally, most likely lymph nodes, but will order ultrasound to be sure., Was not ordered last visit. # Mammogram negative. # Joint pain: Following orthopedics, osteoarthritis, right shoulder, may be candidate for replacement. Time sent with patient 30 minutes or [...] Dictation was accomplished with the use of [employer] voice recognition software, prone to medical misidentifications [...] to exercise regularly. #Overactive bladder: Recently saw [employer] which discontinued tropsium 20 mg for overactive bladder, and started Gemtesa. Patient states that this is been working really well, trying to get authorization approved by [employer]. #Asthma: Patient following with [employer] App[employer]ice Dr. Quinonez at [facility]. Patient advised to continue Advair Diskus 500-50 MCG/ACT BID, Singular 10 mg qhs, & hydrOXYzine HCl 10 mg qd per rubber mold maker's recommendation. Working on taking deep breaths. Filling [...] Dictation was accomplished with the use of [employer] voice recognition software, prone to medical misidentifications [...] interested would both prefer to wait until [employer] become available. She is going to look [...] to exercise regularly. #Overactive bladder: Recently saw [employer] which discontinued tropsium 20 mg for overactive bladder, and started Gemtesa. Patient states that this is been working really well, trying to get authorization approved by [employer]. #Asthma: Patient following with [employer] Apprentice Dr. Quinonez at [facility]. Patient advised to continue Advair Diskus 500-50 MCG/ACT BID, Singular 10 mg qhs, & hydrOXYzine HCl 10 mg qd per rubber mold maker's recommendation. Working on taking deep breaths. Filling [...] Dictation was accomplished with the use of [employer] voice recognition software, prone to medical misidentifications and grammatical errors. This is unintentional and the practitioner does try to identify and correct these, but some could still be present. Please do not hesitate to contact practitioner for clarification. 12/26/2023 Fatigue, unspecified type (ICD-10 - R53.83) 10/03/2022: [...] ot naturally which is encouraged. Labs WNL. #Fatigue increased over last several weeks with associated heat intolerance. Patient has well-circumscribed solid oval thyroid nodule identified on US 10/25/23. # Occasional numbness/tingling of her hand while she is sleeping. Does have a history of extensive typing. Most likely carpal tunnel at this time. Physical exam negative otherwise. Discussed bracing at night/posture while sleeping. # Patient does have bilateral shoulder pain. Declines red flag symptoms. Will start with x-rays, questioning arthritis. #Overactive bladder: Recently saw [employer] which discontinued tropsium 20 mg for overactive bladder, and started Gemtesa. Patient states that this is been working really well, trying to get authorization approved by [employer]. #Asthma: Patient following with [employer] App[employer]ice Dr. Quinonez at [facility]. Patient advised to continue Advair Diskus 500-50 MCG/ACT BID, Singular 10 mg qhs, & hydrOXYzine HCl 10 mg qd per rubber mold maker's recommendation. Working on taking deep breaths. Filling [...] well, but the anxiety persists to varying degrees. #Low-density: Report from 02/2022 showed osteopenia of L hip with T score of -1.4. The lumbar spine was WNL with a T score of 1.8.Hesitant to use GLP-1's due to increased risk of sarcopenia. # Joint pain: ESR, CRP, Lyme negative. # Palpable mass soft tissue of the neck bilaterally, most likely lymph nodes, but will order ultrasound to be sure., Was not ordered last visit. # Mammogram negative. # Joint pain: Following orthopedics, osteoarthritis, right shoulder, may be candidate for replacement. Time sent with patient 30 minutes or [...] Dictation was accomplished with the use of [employer] voice recognition software, prone to medical misidentifications and grammatical errors. This is unintentional and the practitioner does try to identify and correct these, but some could still be present. Please do not hesitate to contact practitioner for clarification. 11/14/2023 Palpable mass of neck (ICD-10 - R22.1) [...] more protein, 11/14/2023: Weight 167 pounds. BMI 28.7. Continues to follow lifestyle modifications for weight loss. Expresses concern for increased fatigue and heat intolerance. Will recheck thyroid function. Discussed medical management with patient and she will hold off at this time until next follow-up in 4-6 weeks. #Fatigue increased over last several weeks with associated heat intolerance. Patient has well-circumscribed solid oval thyroid nodule identified on US 10/25/23. Labs for TSH and reflex T3 and T4 ordered and will continue to follow and manage accordingly. # Occasional numbness/tingling of her hand while she is sleeping. Does have a history of extensive typing. Most likely carpal tunnel at this time. Physical exam negative otherwise. Discussed bracing at night/posture while sleeping. # Patient does have bilateral shoulder pain. Declines red flag symptoms. Will start with x-rays, questioning arthritis. #Overactive bladder: Recently saw [employer] which discontinued tropsium 20 mg for overactive bladder, and started Gemtesa. Patient states that this is been working really well, trying to get authorization approved by [employer]. #Asthma: Patient following with [employer] App[employer]ice Dr. Quinonez at [facility]. Patient advised to continue Advair Diskus 500-50 MCG/ACT BID, Singular 10 mg qhs, & hydrOXYzine HCl 10 mg qd per rubber mold maker's recommendation. Working on taking deep breaths. Filling [...] well, but the anxiety persists to varying degrees. #Low-density: Report from 02/2022 showed osteopenia of L hip with T score of -1.4. The lumbar spine was WNL with a T score of 1.8.Hesitant to use GLP-1's due to increased risk of sarcopenia. # Joint pain: ESR, CRP, Lyme negative. # Palpable mass soft tissue of the neck bilaterally, most likely lymph nodes, but will order ultrasound to be sure., Was not ordered last visit. # Mammogram negative. # Joint pain: Following orthopedics, osteoarthritis, right shoulder, may be candidate for replacement. Follow-up in November, sooner as needed. Ultrasound of the neck in the meantime. Time sent with patient 30 minutes or [...] Dictation was accomplished with the use of [employer] voice recognition software, prone to medical misidentifications and grammatical errors. This is unintentional and the practitioner does try to identify and correct these, but some could still be present. Please do not hesitate to contact practitioner for clarification. 07/03/2023 Anxiety (ICD-10 - F41.9) Yulia, 72 y/o F, with PMH of HTN, asthma, vitamin D deficiency, overactive bladder, anxiety and depression presents for weight management f/u. 10/03/2022: Weight 202.1, BMI 36.96 10/31/2022: Weight [...] M ICC injection today. Declined body scan. #OveractiveBladder: # Overactive bladder: Recently saw [employer] which discontinued tropsium 20 mg for overactive bladder, and started Gemtesa. Patient states that this is been working really well, trying to get authorization approved by [employer]. #Asthma: Patient following with Cyl[employer] Operator Apprentice Dr. Quinonez at [facility]. Patient advised to continue Advair Diskus 500-50 MCG/ACT BID, Singular 10 mg qhs, & hydrOXYzine HCl 10 mg qd per rubber mold maker's recommendation. Patient states that today's oxygen saturation of 99% is the best she has ever had. #HTN: Advised to continue HydroCHLOROthiazide 25 mg qd and Losartan 50 mg qd.Monitor BP at home, adjust treatment as needed. Educated on the importance of blood pressure control. #VitaminDeficiency: The patient was advised to continue her vitamin D supplementation for her vitamin D deficiency. #Anxiety/Depression: Patient states that escitalopram 20 mg manages the depression well, but the anxiety persists to varying degrees. #Mammogram: Report from March 2022 showed no sign of malignancy. #Low-density: Report from 02/2022 showed osteopenia of L hip with T score of -1.4. The lumbar spine was WNL with a T score of 1.8.Hesitant to use GLP-1's due to increased risk of sarcopenia. #Labs: Printout from labs 07/2022 were WNL besides Total Cholesterol:219 mg/dL, LDL 139 mg/dL, CO2 34 mmol/L # Joint pain: Ordering labs prior to next visit including ESR, CRP, Lyme. Patient to follow-up in August for complete physical with labs, sooner as needed Time spent with patient 30 minutes greater than 50% of patient education and care coordination. All quetsions answered to patients satisfaction. Patient verbalized understanding of diagnosis and treatments explained. To call sooner prior to next visit it any questions/concerns arise. Case discussed with collaborating physician Kleber Quach who reviewed the assessment and plan. Chart, medications, labs, vital signs reviewed. Dictation was accomplished with the use of [employer] voice recognition software, prone to medical misidentifications and grammatical errors. This is unintentional and the practitioner does try to identify and correct these, but some could still be present. Please do not hesitate to contact practitioner for clarification. 09/11/2023 Encounter for screening mammogram for malignant neoplasm of breast (ICD-10 - Z12.31) Patient here for Medicare wellness visit. PHQ-9 a total score of 3, no concern regarding mental health at this time. Up-to-date on all routine screening and vaccines aside from mammogram for which we will order today. Healthcare proxy is her grandson. 10/03/2022: Weight 202.1, BMI 36.96 10/31/2022: Weight [...] it is sustainable. Losing slow, steady weight. # Occasional numbness/tingling of her hand while she is sleeping. Does have a history of extensive typing. Most likely carpal tunnel at this time. Physical exam negative otherwise. Discussed bracing at night/posture while sleeping. # Patient does have bilateral shoulder pain. Declines red flag symptoms. Will start with x-rays, questioning arthritis. #Overactive bladder: Recently saw [employer] which discontinued tropsium 20 mg for overactive bladder, and started Gemtesa. Patient states that this is been working really well, trying to get authorization approved by [employer]. #Asthma: Patient following with Cyl[employer] Operator Apprentice Dr. Quinonez at [facility]. Patient advised to continue Advair Diskus 500-50 MCG/ACT BID, Singular 10 mg qhs, & hydrOXYzine HCl 10 mg qd per rubber mold maker's recommendation. Patient states that today's oxygen saturation of 93%. Working on taking deep breaths. Filling up [...] well, but the anxiety persists to varying degrees. #Low-density: Report from 02/2022 showed osteopenia of L hip with T score of -1.4. The lumbar spine was WNL with a T score of 1.8.Hesitant to use GLP-1's due to increased risk of sarcopenia. # Joint pain: ESR, CRP, Lyme negative. # Palpable mass soft tissue of the neck bilaterally, most likely lymph nodes, but will order ultrasound to be sure. Follow-up next month for weight management, sooner as needed. In the meantime ordering mammogram, bilateral shoulder x-rays, and ultrasound of neck. Time spent with patient 30 minutes greater than 50% of patient education and care coordination. Patient seen and examined. Comprehensive discussion was done on the following. 1. Nutrition: It is important to follow a healthy diet based on lots of vegetables and legumes and good fat. Avoid processed food and processed carbohydrates. Prepare your own meals. Read labels and avoid high fructose corn syrup, processed chemicals added to increase shelf life and preprepared meals. Avoid fast foods. Eat slowly and plan meals for a week. Try to count calories and be mindful off daily calorie intake. Get into the habit of keeping an eye on your weight by using an appropriate scale. Learn to log exercise and discussed fitness Apps like [employer] which can help keep log off calories taken versus calories burned. Local food should be preferred. Discussed Dirty Dozen Versus Clean Fifteen. Discussed healthy supplements like fish oil, Tumeric, Curcumin, Melatonin, Resveratrol, Probiotics, Vitamin-D, Alpha-Lipoic acid, Vitamin-D and coconut oil. 2. It is important to exercise regularly. Is a good habit to walk at least 30 minutes a day. Gentle weightlifting with standard precautions to protect the back. Finding activity like cycling or hiking and get into the habit of engaging in it. Stretching before and after the exercises important. It is also important to contact me if there are any problems like shortness of breath, chest pain, back pain and joint or muscle pain associated with the exercise. 3. Discussed age appropriate screening guidelines. Colonoscopy needs to start at age 50 with stool for occult blood as appropriate. There is a new test that can test for genetic abnormalities in the stool sample, Cologuard. This would not replace a colonoscopy but could be used as a screening tool for patients who do not want a colonoscopy. We discussed the importance of early detection of colon cancer. 4. Discussed current guidelines with respect to breast examination, mammogram and pap smear for early detection of breast and cervical cancer. Patient advised to follow up with these appointments. 5. Discussed safe driving and no use of smart phone while driving 6. Age-appropriate immunizations were discussed. A tetanus booster is needed every 10 years. Flu vaccine is recommended every year just before the start of the flu season. Shingles vaccine is recommended after age 50 but not all insurances cover it. Pneumonia vaccine is given after age 65 unless there are certain comorbidities for which it is started earlier. 7. Diagnostic labs were discussed. These could include/not limited to CBC CMP and lipids with fasting blood glucose and insulin levels. Vitamin D and hemoglobin A1c testing might be appropriate. 08/09/2023 Anxiety (ICD-10 - F41.9) Yulia, 72 y/o F, with PMH of HTN, asthma, vitamin D deficiency, overactive bladder, anxiety and depression presents for weight management f/u. 10/03/2022: Weight 202.1, BMI 36.96 10/31/2022: Weight [...] loss with 1 pound of muscle gain #OveractiveBladder: # Overactive bladder: Recently saw [employer] which discontinued tropsium 20 mg for overactive bladder, and started Gemtesa. Patient states that this is been working really well, trying to get authorization approved by [employer]. #Asthma: Patient following with Cyl[employer] Operator Apprentice Dr. Quinonez at [facility]. Patient advised to continue Advair Diskus 500-50 MCG/ACT BID, Singular 10 mg qhs, & hydrOXYzine HCl 10 mg qd per rubber mold maker's recommendation. Patient states that today's oxygen saturation of 99% is the best she has ever had. #HTN: Advised to continue HydroCHLOROthiazide 25 mg qd and Losartan 50 mg qd.Monitor BP at home, adjust treatment as needed. Educated on the importance of blood pressure control. #VitaminDeficiency: The patient was advised to continue her vitamin D supplementation for her vitamin D deficiency. #Anxiety/Depression: Patient states that escitalopram 20 mg manages the depression well, but the anxiety persists to varying degrees. #Mammogram: Report from March 2022 showed no sign of malignancy. #Low-density: Report from 02/2022 showed osteopenia of L hip with T score of -1.4. The lumbar spine was WNL with a T score of 1.8.Hesitant to use GLP-1's due to increased risk of sarcopenia. #Labs: Printout from labs 07/2022 were WNL besides Total Cholesterol:219 mg/dL, LDL 139 mg/dL, CO2 34 mmol/L # Joint pain: Ordering labs prior to next visit including ESR, CRP, Lyme. Follow-up for physical in September, sooner as needed. Time spent with patient 30 minutes greater than 50% of patient education and care coordination. All quetsions answered to patients satisfaction. Patient verbalized understanding of diagnosis and treatments explained. To call sooner prior to next visit it any questions/concerns arise. Case discussed with collaborating physician Kleber Quach who reviewed the assessment and plan. Chart, medications, labs, vital signs reviewed. Dictation was accomplished with the use of [employer] voice recognition software, prone to medical misidentifications [...] to exercise regularly. #Overactive bladder: Recently saw [employer] which discontinued tropsium 20 mg for overactive bladder, and started Gemtesa. Patient states that this is been working really well, trying to get authorization approved by [employer]. #Asthma: Patient following with Cyl[employer] Operator Apprentice Dr. Quinonez at [facility]. Patient advised to continue Advair Diskus 500-50 MCG/ACT BID, Singular 10 mg qhs, & hydrOXYzine HCl 10 mg qd per rubber mold maker's recommendation. Working on taking deep breaths. Filling [...] Dictation was accomplished with the use of [employer] voice recognition software, prone to medical misidentifications and grammatical errors. This is unintentional and the practitioner does try to identify and correct these, but some could still be present. Please do not hesitate to contact practitioner for clarification. 11/14/2023 Encounter for screening for other suspected endocrine disorder (ICD-10 - Z13.29) 10/03/2022: Weight 202.1, BMI 36.96 10/31/2022: Weight [...] more protein, 11/14/2023: Weight 167 pounds. BMI 28.7. Continues to follow lifestyle modifications for weight loss. Expresses concern for increased fatigue and heat intolerance. Will recheck thyroid function. Discussed medical management with patient and she will hold off at this time until next follow-up in 4-6 weeks. #Fatigue increased over last several weeks with associated heat intolerance. Patient has well-circumscribed solid oval thyroid nodule identified on US 10/25/23. Labs for TSH and reflex T3 and T4 ordered and will continue to follow and manage accordingly. # Occasional numbness/tingling of her hand while she is sleeping. Does have a history of extensive typing. Most likely carpal tunnel at this time. Physical exam negative otherwise. Discussed bracing at night/posture while sleeping. # Patient does have bilateral shoulder pain. Declines red flag symptoms. Will start with x-rays, questioning arthritis. #Overactive bladder: Recently saw [employer] which discontinued tropsium 20 mg for overactive bladder, and started Gemtesa. Patient states that this is been working really well, trying to get authorization approved by [employer]. #Asthma: Patient following with Cyl[employer] Apprentice Dr. Quinonez at [facility]. Patient advised to continue Advair Diskus 500-50 MCG/ACT BID, Singular 10 mg qhs, & hydrOXYzine HCl 10 mg qd per rubber mold maker's recommendation. Working on taking deep breaths. Filling [...] well, but the anxiety persists to varying degrees. #Low-density: Report from 02/2022 showed osteopenia of L hip with T score of -1.4. The lumbar spine was WNL with a T score of 1.8.Hesitant to use GLP-1's due to increased risk of sarcopenia. # Joint pain: ESR, CRP, Lyme negative. # Palpable mass soft tissue of the neck bilaterally, most likely lymph nodes, but will order ultrasound to be sure., Was not ordered last visit. # Mammogram negative. # Joint pain: Following orthopedics, osteoarthritis, right shoulder, may be candidate for replacement. Follow-up in November, sooner as needed. Ultrasound of the neck in the meantime. Time sent with patient 30 minutes or [...] Dictation was accomplished with the use of [employer] voice recognition software, prone to medical misidentifications and grammatical errors. This is unintentional and the practitioner does try to identify and correct these, but some could still be present. Please do not hesitate to contact practitioner for clarification. 09/11/2023 Encounter for screening for depression (ICD-10 - Z13.31) Patient here for Medicare wellness visit. PHQ-9 a total score of 3, no concern regarding mental health at this time. Up-to-date on all routine screening and vaccines aside from mammogram for which we will order today. Healthcare proxy is her grandson. 10/03/2022: Weight 202.1, BMI 36.96 10/31/2022: Weight [...] it is sustainable. Losing slow, steady weight. # Occasional numbness/tingling of her hand while she is sleeping. Does have a history of extensive typing. Most likely carpal tunnel at this time. Physical exam negative otherwise. Discussed bracing at night/posture while sleeping. # Patient does have bilateral shoulder pain. Declines red flag symptoms. Will start with x-rays, questioning arthritis. #Overactive bladder: Recently saw [employer] which discontinued tropsium 20 mg for overactive bladder, and started Gemtesa. Patient states that this is been working really well, trying to get authorization approved by [employer]. #Asthma: Patient following with Cyl[employer] Operator Apprentice Dr. Quinonez at [facility]. Patient advised to continue Advair Diskus 500-50 MCG/ACT BID, Singular 10 mg qhs, & hydrOXYzine HCl 10 mg qd per rubber mold maker's recommendation. Patient states that today's oxygen saturation of 93%. Working on taking deep breaths. Filling up [...] well, but the anxiety persists to varying degrees. #Low-density: Report from 02/2022 showed osteopenia of L hip with T score of -1.4. The lumbar spine was WNL with a T score of 1.8.Hesitant to use GLP-1's due to increased risk of sarcopenia. # Joint pain: ESR, CRP, Lyme negative. # Palpable mass soft tissue of the neck bilaterally, most likely lymph nodes, but will order ultrasound to be sure. Follow-up next month for weight management, sooner as needed. In the meantime ordering mammogram, bilateral shoulder x-rays, and ultrasound of neck. Time spent with patient 30 minutes greater than 50% of patient education and care coordination. Patient seen and examined. Comprehensive discussion was done on the following. 1. Nutrition: It is important to follow a healthy diet based on lots of vegetables and legumes and good fat. Avoid processed food and processed carbohydrates. Prepare your own meals. Read labels and avoid high fructose corn syrup, processed chemicals added to increase shelf life and preprepared meals. Avoid fast foods. Eat slowly and plan meals for a week. Try to count calories and be mindful off daily calorie intake. Get into the habit of keeping an eye on your weight by using an appropriate scale. Learn to log exercise and discussed fitness Apps like [employer] which can help keep log off calories taken versus calories burned. Local food should be preferred. Discussed Dirty Dozen Versus Clean Fifteen. Discussed healthy supplements like fish oil, Tumeric, Curcumin, Melatonin, Resveratrol, Probiotics, Vitamin-D, Alpha-Lipoic acid, Vitamin-D and coconut oil. 2. It is important to exercise regularly. Is a good habit to walk at least 30 minutes a day. Gentle weightlifting with standard precautions to protect the back. Finding activity like cycling or hiking and get into the habit of engaging in it. Stretching before and after the exercises important. It is also important to contact me if there are any problems like shortness of breath, chest pain, back pain and joint or muscle pain associated with the exercise. 3. Discussed age appropriate screening guidelines. Colonoscopy needs to start at age 50 with stool for occult blood as appropriate. There is a new test that can test for genetic abnormalities in the stool sample, Cologuard. This would not replace a colonoscopy but could be used as a screening tool for patients who do not want a colonoscopy. We discussed the importance of early detection of colon cancer. 4. Discussed current guidelines with respect to breast examination, mammogram and pap smear for early detection of breast and cervical cancer. Patient advised to follow up with these appointments. 5. Discussed safe driving and no use of smart phone while driving 6. Age-appropriate immunizations were discussed. A tetanus booster is needed every 10 years. Flu vaccine is recommended every year just before the start of the flu season. Shingles vaccine is recommended after age 50 but not all insurances cover it. Pneumonia vaccine is given after age 65 unless there are certain comorbidities for which it is started earlier. 7. Diagnostic labs were discussed. These could include/not limited to CBC CMP and lipids with fasting blood glucose and insulin levels. Vitamin D and hemoglobin A1c testing might be appropriate. 11/14/2023 Fatigue, unspecified type (ICD-10 - R53.83) 10/03/2022: [...] more protein, 11/14/2023: Weight 167 pounds. BMI 28.7. Continues to follow lifestyle modifications for weight loss. Expresses concern for increased fatigue and heat intolerance. Will recheck thyroid function. Discussed medical management with patient and she will hold off at this time until next follow-up in 4-6 weeks. #Fatigue increased over last several weeks with associated heat intolerance. Patient has well-circumscribed solid oval thyroid nodule identified on US 10/25/23. Labs for TSH and reflex T3 and T4 ordered and will continue to follow and manage accordingly. # Occasional numbness/tingling of her hand while she is sleeping. Does have a history of extensive typing. Most likely carpal tunnel at this time. Physical exam negative otherwise. Discussed bracing at night/posture while sleeping. # Patient does have bilateral shoulder pain. Declines red flag symptoms. Will start with x-rays, questioning arthritis. #Overactive bladder: Recently saw [employer] which discontinued tropsium 20 mg for overactive bladder, and started Gemtesa. Patient states that this is been working really well, trying to get authorization approved by [employer]. #Asthma: Patient following with C[employer] Operator Apprentice Dr. Quinonez at [facility]. Patient advised to continue Advair Diskus 500-50 MCG/ACT BID, Singular 10 mg qhs, & hydrOXYzine HCl 10 mg qd per rubber mold maker's recommendation. Working on taking deep breaths. Filling [...] well, but the anxiety persists to varying degrees. #Low-density: Report from 02/2022 showed osteopenia of L hip with T score of -1.4. The lumbar spine was WNL with a T score of 1.8.Hesitant to use GLP-1's due to increased risk of sarcopenia. # Joint pain: ESR, CRP, Lyme negative. # Palpable mass soft tissue of the neck bilaterally, most likely lymph nodes, but will order ultrasound to be sure., Was not ordered last visit. # Mammogram negative. # Joint pain: Following orthopedics, osteoarthritis, right shoulder, may be candidate for replacement. Follow-up in November, sooner as needed. Ultrasound of the neck in the meantime. Time sent with patient 30 minutes or [...] Dictation was accomplished with the use of [employer] voice recognition software, prone to medical misidentifications [...] to exercise regularly. #Overactive bladder: Recently saw [employer] which discontinued tropsium 20 mg for overactive bladder, and started Gemtesa. Patient states that this is been working really well, trying to get authorization approved by [employer]. #Asthma: Patient following with Cyl[employer] Apprentice Dr. Quinonez at [facility]. Patient advised to continue Advair Diskus 500-50 MCG/ACT BID, Singular 10 mg qhs, & hydrOXYzine HCl 10 mg qd per rubber mold maker's recommendation. Working on taking deep breaths. Filling [...] Dictation was accomplished with the use of [employer] voice recognition software, prone to medical misidentifications and grammatical errors. This is unintentional and the practitioner does try to identify and correct these, but some could still be present. Please do not hesitate to contact practitioner for clarification. 09/11/2023 Encounter for screening for other disorder (ICD-10 - Z13.89) Patient here for Medicare wellness visit. PHQ-9 a total score of 3, no concern regarding mental health at this time. Up-to-date on all routine screening and vaccines aside from mammogram for which we will order today. Healthcare proxy is her grandson. 10/03/2022: Weight 202.1, BMI 36.96 10/31/2022: Weight [...] it is sustainable. Losing slow, steady weight. # Occasional numbness/tingling of her hand while she is sleeping. Does have a history of extensive typing. Most likely carpal tunnel at this time. Physical exam negative otherwise. Discussed bracing at night/posture while sleeping. # Patient does have bilateral shoulder pain. Declines red flag symptoms. Will start with x-rays, questioning arthritis. #Overactive bladder: Recently saw [employer] which discontinued tropsium 20 mg for overactive bladder, and started Gemtesa. Patient states that this is been working really well, trying to get authorization approved by [employer]. #Asthma: Patient following with Cyl[employer] Operator Apprentice Dr. Quinonez at [facility]. Patient advised to continue Advair Diskus 500-50 MCG/ACT BID, Singular 10 mg qhs, & hydrOXYzine HCl 10 mg qd per rubber mold maker's recommendation. Patient states that today's oxygen saturation of 93%. Working on taking deep breaths. Filling up [...] well, but the anxiety persists to varying degrees. #Low-density: Report from 02/2022 showed osteopenia of L hip with T score of -1.4. The lumbar spine was WNL with a T score of 1.8.Hesitant to use GLP-1's due to increased risk of sarcopenia. # Joint pain: ESR, CRP, Lyme negative. # Palpable mass soft tissue of the neck bilaterally, most likely lymph nodes, but will order ultrasound to be sure. Follow-up next month for weight management, sooner as needed. In the meantime ordering mammogram, bilateral shoulder x-rays, and ultrasound of neck. Time spent with patient 30 minutes greater than 50% of patient education and care coordination. Patient seen and examined. Comprehensive discussion was done on the following. 1. Nutrition: It is important to follow a healthy diet based on lots of vegetables and legumes and good fat. Avoid processed food and processed carbohydrates. Prepare your own meals. Read labels and avoid high fructose corn syrup, processed chemicals added to increase shelf life and preprepared meals. Avoid fast foods. Eat slowly and plan meals for a week. Try to count calories and be mindful off daily calorie intake. Get into the habit of keeping an eye on your weight by using an appropriate scale. Learn to log exercise and discussed fitness Apps like [employer]an[employer]x which can help keep log off calories taken versus calories burned. Local food should be preferred. Discussed Dirty Dozen Versus Clean Fifteen. Discussed healthy supplements like fish oil, Tumeric, Curcumin, Melatonin, Resveratrol, Probiotics, Vitamin-D, Alpha-Lipoic acid, Vitamin-D and coconut oil. 2. It is important to exercise regularly. Is a good habit to walk at least 30 minutes a day. Gentle weightlifting with standard precautions to protect the back. Finding activity like cycling or hiking and get into the habit of engaging in it. Stretching before and after the exercises important. It is also important to contact me if there are any problems like shortness of breath, chest pain, back pain and joint or muscle pain associated with the exercise. 3. Discussed age appropriate screening guidelines. Colonoscopy needs to start at age 50 with stool for occult blood as appropriate. There is a new test that can test for genetic abnormalities in the stool sample, Cologuard. This would not replace a colonoscopy but could be used as a screening tool for patients who do not want a colonoscopy. We discussed the importance of early detection of colon cancer. 4. Discussed current guidelines with respect to breast examination, mammogram and pap smear for early detection of breast and cervical cancer. Patient advised to follow up with these appointments. 5. Discussed safe driving and no use of smart phone while driving 6. Age-appropriate immunizations were discussed. A tetanus booster is needed every 10 years. Flu vaccine is recommended every year just before the start of the flu season. Shingles vaccine is recommended after age 50 but not all insurances cover it. Pneumonia vaccine is given after age 65 unless there are certain comorbidities for which it is started earlier. 7. Diagnostic labs were discussed. These could include/not limited to CBC CMP and lipids with fasting blood glucose and insulin levels. Vitamin D and hemoglobin A1c testing might be appropriate. 09/11/2023 Other specified counseling (ICD-10 - Z71.89) Patient here for Medicare wellness visit. PHQ-9 a total score of 3, no concern regarding mental health at this time. Up-to-date on all routine screening and vaccines aside from mammogram for which we will order today. Healthcare proxy is her grandson. 10/03/2022: Weight 202.1, BMI 36.96 10/31/2022: Weight [...] it is sustainable. Losing slow, steady weight. # Occasional numbness/tingling of her hand while she is sleeping. Does have a history of extensive typing. Most likely carpal tunnel at this time. Physical exam negative otherwise. Discussed bracing at night/posture while sleeping. # Patient does have bilateral shoulder pain. Declines red flag symptoms. Will start with x-rays, questioning arthritis. #Overactive bladder: Recently saw [employer] which discontinued tropsium 20 mg for overactive bladder, and started Gemtesa. Patient states that this is been working really well, trying to get authorization approved by [employer]. #Asthma: Patient following with [employer] Dr. Quinonez at [facility]. Patient advised to continue Advair Diskus 500-50 MCG/ACT BID, Singular 10 mg qhs, & hydrOXYzine HCl 10 mg qd per rubber mold maker's recommendation. Patient states that today's oxygen saturation of 93%. Working on taking deep breaths. Filling up [...] well, but the anxiety persists to varying degrees. #Low-density: Report from 02/2022 showed osteopenia of L hip with T score of -1.4. The lumbar spine was WNL with a T score of 1.8.Hesitant to use GLP-1's due to increased risk of sarcopenia. # Joint pain: ESR, CRP, Lyme negative. # Palpable mass soft tissue of the neck bilaterally, most likely lymph nodes, but will order ultrasound to be sure. Follow-up next month for weight management, sooner as needed. In the meantime ordering mammogram, bilateral shoulder x-rays, and ultrasound of neck. Time spent with patient 30 minutes greater than 50% of patient education and care coordination. Patient seen and examined. Comprehensive discussion was done on the following. 1. Nutrition: It is important to follow a healthy diet based on lots of vegetables and legumes and good fat. Avoid processed food and processed carbohydrates. Prepare your own meals. Read labels and avoid high fructose corn syrup, processed chemicals added to increase shelf life and preprepared meals. Avoid fast foods. Eat slowly and plan meals for a week. Try to count calories and be mindful off daily calorie intake. Get into the habit of keeping an eye on your weight by using an appropriate scale. Learn to log exercise and discussed fitness Apps like [employer]an[employer]x which can help keep log off calories taken versus calories burned. Local food should be preferred. Discussed Dirty Dozen Versus Clean Fifteen. Discussed healthy supplements like fish oil, Tumeric, Curcumin, Melatonin, Resveratrol, Probiotics, Vitamin-D, Alpha-Lipoic acid, Vitamin-D and coconut oil. 2. It is important to exercise regularly. Is a good habit to walk at least 30 minutes a day. Gentle weightlifting with standard precautions to protect the back. Finding activity like cycling or hiking and get into the habit of engaging in it. Stretching before and after the exercises important. It is also important to contact me if there are any problems like shortness of breath, chest pain, back pain and joint or muscle pain associated with the exercise. 3. Discussed age appropriate screening guidelines. Colonoscopy needs to start at age 50 with stool for occult blood as appropriate. There is a new test that can test for genetic abnormalities in the stool sample, Cologuard. This would not replace a colonoscopy but could be used as a screening tool for patients who do not want a colonoscopy. We discussed the importance of early detection of colon cancer. 4. Discussed current guidelines with respect to breast examination, mammogram and pap smear for early detection of breast and cervical cancer. Patient advised to follow up with these appointments. 5. Discussed safe driving and no use of smart phone while driving 6. Age-appropriate immunizations were discussed. A tetanus booster is needed every 10 years. Flu vaccine is recommended every year just before the start of the flu season. Shingles vaccine is recommended after age 50 but not all insurances cover it. Pneumonia vaccine is given after age 65 unless there are certain comorbidities for which it is started earlier. 7. Diagnostic labs were discussed. These could include/not limited to CBC CMP and lipids with fasting blood glucose and insulin levels. Vitamin D and hemoglobin A1c testing might be appropriate. PLAN OF TREATMENT Pending Test Test Name Order Date X ray : Shoulder, left 09/11/2023 X ray : Shoulder, right 09/11/2023 MAMMOGRAM, SCREENING 09/11/2023 US Head/Neck Soft Tissue 10/11/2023 COMPREHENSIVE METABOLIC PANEL 07/04/2023 CBC (INCLUDES DIFF/PLT) 07/04/2023 URINALYSIS, COMPLETE 07/04/2023 SED RATE BY MODIFIED WESTERGREN 07/04/19 24 C-REACTIVE PROTEIN 07/04/2023 T4, FREE 11/14/2023 TSH 11/14/2023 T3, FREE 11/14/2023 LYME AB SCREEN 07/04/2023 US Carotid Duplex Bilat Complt 5 Next Appt Details Provider Name:Josie LEIVA 09/16/2024 10:00:00 AM, [address], [place], [address], Insurance Providers Payer Name Payer Address Payer Phone Subscriber Number Group Number Insured Name Patient Relationship to Insured Coverage Start Date Coverage End Date [facility] [address] [place] [address] [id number] Yulia Dennis Self - patient is the insured 2 MEDICATIONS ADMINISTERED Medication Instructions Date of Administration Dosage Notes MICC B12 INJECTION 12/04/2022 MICC B12 INJECTION 07/03/2023 1 mg lot: [id number] MEDICAL (GENERAL) HISTORY Medical History History ICD Code Hypertension, essential I10 Asthma J45.909 Anxiety F41.9 Overactive bladder N32.81 Depression F32.A Vitamin D deficiency E55.9 Weight gain R63.5 Sleep apnea in adult G47.30 Surgical History Surgery Date(Month/Year) Cataract Surgery bilaterally 2017 face lift 2010 Hospitalization History Reason Date(Month/Year) 6-7 Years back for hypoxia x a few admis sions
--- OUTSIDE RECORDS SUMMARY | 2024-05-15 17:25 | XMS_ITS | Data Portability ---
Author Organization [facility], [facility] Address [address] [place] [address] Care Team Providers Care Internal Communications Manager Name Role Phone MAXIME PADGETT Primary Care Provider [phone] Assessment No assessment recorded. Plan of Treatment Reminders Order Date Submit Date Provider Last Modified By Organization Details Last Modified Time Details Appointments PT INITIAL EVAL 2024 01:30P M Lacy Caal DPT Not available Not available Not available PT FOLLOW-UP 2024 01:30P M Lacy Caal DPT Not available Not available Not available PT FOLLOW-UP 2024 01:30P M Lacy Caal DPT Not available Not available Not available PT FOLLOW-UP 2024 01:30P M Mckenna Odonnell, MAINTENANCE GROUNDMAN Not available Not available Not available PT FOLLOW-UP 2024 01:30P M Mckenna Odonnell, MAINTENANCE GROUNDMAN Not available Not available Not available PT FOLLOW-UP 2024 01:30P M Mckenna Odonnell, MAINTENANCE GROUNDMAN Not available Not available Not available PT FOLLOW-UP 2024 12:30P M Lacy Caal, DPT Not available Not available Not available PT FOLLOW-UP 2024 01:30P M Mcknena Odonnell, MAINTENANCE GROUNDMAN Not available Not available Not available PT FOLLOW-UP 2024 01:30P M Mckenna Odonnell, MAINTENANCE GROUNDMAN Not available Not available Not available PT FOLLOW-UP 2024 01:30P M Mckenna Odonnell, MAINTENANCE GROUNDMAN Not available Not available Not available PT FOLLOW-UP 2024 01:30P M Mckenna Odonnell, MAINTENANCE GROUNDMAN Not available Not available Not available PT FOLLOW-UP 2024 01:30P M Mckenna Odonnell, MAINTENANCE GROUNDMAN Not available Not available Not available PT FOLLOW-UP 2024 01:30P M Mckenna Odonnell, MAINTENANCE GROUNDMAN Not available Not available Not available PT FOLLOW-UP 2024 01:30P M Mckenna Navaall, MAINTENANCE GROUNDMAN Not available Not available Not available PT FOLLOW-UP 2024 01:30P M Mckenna Odonnell, MAINTENANCE GROUNDMAN Not available Not available Not available PT FOLLOW-UP 2024 01:30P M Mckenna Navaall, MAINTENANCE GROUNDMAN Not available Not available Not available PT FOLLOW-UP 2024 01:30P M Mckenna Navaall, MAINTENANCE GROUNDMAN Not available Not available Not available PT FOLLOW-UP 2024 01:30P M Mckenna Odonnell, MAINTENANCE GROUNDMAN Not available Not available Not available PT FOLLOW-UP 2024 01:30P M Mckenna Odonnell, MAINTENANCE GROUNDMAN Not available Not available Not available PT FOLLOW-UP 2024 01:30P M Mckenna Odonnell, MAINTENANCE GROUNDMAN Not available Not available Not available PT FOLLOW-UP 2024 01:30P M Lacy Caal, DPT Not available Not available Not available PT FOLLOW-UP 2024 01:30P M Mckenna Odonnell, MAINTENANCE GROUNDMAN Not available Not available Not available PT FOLLOW-UP 2024 01:30P M Lacy Caal, DPT Not available Not available Not available PT FOLLOW-UP 2024 01:30P M Mckenna Odonnell, MAINTENANCE GROUNDMAN Not available Not available Not available PT FOLLOW-UP 2024 01:30P M Lacy Caal, DPT Not available Not available Not available PT FOLLOW-UP 2024 01:30P M Mckenna Odonnell, MAINTENANCE GROUNDMAN Not available Not available Not available Lab None recorded. Referral None recorded. Procedures None recorded. Surgeries None recorded. Imaging MRI, shoulder, w/o contrast - right shoulder 2023 024 [facility] ([facility]), [address] [facility], [place], [address], 03/17/2024 11:19:09 XR, shoulder, 2 or more view - rm 214 4V gemini shoulder pain 2023 024 [email or web address] [facility], [address], [facility] [address], [place], [address], 12/05/2023 13:18:23 Medication Orders None recorded. Patient TargetsNo targets recorded. Patient InstructionsNo instructions recorded. Reason for Referral None Reported. Results Created Date Observation Date Name Description Value Unit Range Abnormal Flag Note LastModifiedBy Organization Detail LastModifiedTime 05/01/19 25 05/02/2024 ELECT ROLYT E PANEL sodium 139 mmol/ L 134-14 4 normal Not Available [facility] ([facility]) [address] [place], [address], 05/02/2024 06:05:31 05/01/19 25 05/02/2024 ELECT ROLYT E PANEL potassium 4.0 mmol/ L 3.5-5. 2 normal Not Available [facility] ([facility]) [address] [place], [address], 05/02/2024 06:05:31 05/01/19 25 05/02/2024 ELECT ROLYT E PANEL chloride 99 mmol/ L 96-106 normal Not Available [facility] ([facility]) [address] [place], [address], 05/02/2024 06:05:31 05/01/19 25 05/02/2024 ELECT ROLYT E PANEL carbon dioxide, total 32 mmol/ L 20-29 above high normal Not Available [facility] ([facility]) [address] [place], [address], 05/02/2024 06:05:31 11/14/19 24 11/14/2023 XR, shoul james, 2 or more view [email or web address] ?Encry pted=s hAaTro YD8dLq bEUv6g %2BXZw aYqtaq 0bqfl% 2Fg9IQ a4ajBk vP9nXo QUaueC m3YtLR FvZlgJ JJ8mAn HZtai3 9u8765 AC0Kqa n2FVqG mKiQtr MwF INTERFACE [facility] [address] [address], [place], [address], 11/14/2023 15:19:53 11/14/19 24 11/14/2023 XR, kye ramirez, 2 or more view [email or web address] ?Encry pted=s hAaTro YD8dLq bEUv6g %2BXZw aYqtaq 0bqfl% 2Fg9IQ a4ajBk vP9nXo QUaueC m3YtLR FvZlgJ JJ8mAn HZtai3 6e8636 AC0Kqa n2FVqG mKiQtr MwF INTERFACE [address], [address], 11/14/2023 15:19:55 03/17/19 25 03/15/2024 MRI, kye ramirez, w/o contr ast [facility] Access ion Number : [id number] Dylan t Name: Yulia Leija Record Number : [id number] Date of : 1950 Date of Exam: 2024 Referr ing Physic [place]: Bradley Murphy in [facility] [address] [place] [address] /[address] [address] Exam: MR Should er (C-) CPT 39154 - Right Room Descri ption: [facility] 3.0T Clinic al Histor y: Pain in the right should er, questi on rotato r cuff tear. The patien t report s modera te right should er pain for one year with weakne ss and loss of range of motion . Techni que: MRI of the right should er was perfor med withou t intrav enous contra st. Compar rj: None. Findin gs: Patien t motion artifa ct throug hout the examin ation degrad es image qualit y. Rotato r cuff: There is supras pinatu s tendin opathy . There is appare nt full-t hickne ss tear of the supras pinatu s proxim al to its footpr int (image 8 of series 8 and image 8 of series 5). The approx imate area of the tear measur es 0.8 x 1.1 cm. Modera te fluid is seen in the subacr omial/ subdel toid space. There is insert ional tendin opathy of infras pinatu s and mild tendin opathy of subsca pulari s. The teres minor tendon is intact . Mild decrea sed muscle bulk of supras pinatu s is seen. Fatty infilt ration of the teres minor muscle is seen. No defini te atroph y of the deltoi d or discre te mass bernard latera l space is seen. Glenoi d labrum and biceps tendon : There is diffus e degene rative tearin g of the superi or labrum . The biceps tendon is in the groove with mild tendin opathy of its intra- articu lar portio n. AC joint: There is mild acromi oclavi cular degene rative change of bony prolif eratio n and small subcho ndral cysts. Articu lar there is bony prolif eratio n inferi henry of the windy l head neck juncti on. There is irregu lar chondr al loss on the windy l head, which appear s most pronou nced superi henry. Chondr al loss in the glenoi d also appear s to extend near full-t hickne ss superi henry. Mild subcho ndral marrow edema is seen in the inferi or glenoi d. There is mild hetero geneit y signal in the joint fluid which may reflec t synovi tis or small loose bodies . Impres leena: 1. Motion degrad ed examin ation. 2. Modera te fluid in the subacr omial/ subdel toid space with appare nt full-t hickne ss tear in the supras pinatu s proxim al to its footpr int. 3. Insert ional tendin opathy of infras pinatu s and mild tendin opathy of subsca pulari s as well as tendin opathy of the intra- articu lar biceps . 4. Modera te glenoh umeral and mild acromi al clavic ular degene rative change . Electr onical ly Signed By: Nancy Quinn ra, MD [email or web address] [facility] ([facility]) [address], [place], [address], 03/17/2024 13:05:04 Result Notes None recorded. Problems Name Problem SNOMED Code Status Onset Date Resolution Date Notes Provider Name and Address Organization Details Recorded Time Pain of right shoulder joint 9988759672943 9100 Active 2023 dawna garcia [place] - [facility] 4 09:48:41 Osteoarthri tis of joint of left shoulder region 5446010112835 08 Active 2024 Guy Mario MD [address], [place], [address], [facility]3] [facility] 5 13:30:22 Impingement syndrome of right shoulder region 2986616354227 02 Active 2024 Guy Mario MD [address], [place], [address], [facility]3] [facility] 5 13:30:22 Nontraumati c complete rupture of rotator cuff of right shoulder 0962031343866 100 Active 2024 Guy Mario MD [address], [place], [address], [facility]3] [facility] 5 13:30:22 Osteoarthri tis of joint of right shoulder region 5214815825486 00 Active 2024 Guy Mario MD [address], [place], [address], [facility]3] [facility] 5 13:30:22 Rupture of rotator cuff of right shoulder 8318915609754 9103 Active 2024 JUAN garcia [facility] 5 15:26:40 Problem Notes None recorded. Procedures Surgical History Date Name Laterality Status Provider Name and Address Organization Details Recorded Time 4 Sports Shoulder completed Soraya Murphy PA-C [address], [place], [address], [facility] 02/18/2024 21:43:33 4 PM Shoulder Kenalog 2cc Injection Unilateral completed Soraya Murphy PA-C [address], [place], [address], [facility] 02/18/2024 21:43:51 4 Sports Shoulder completed Soraya Murphy PA-C [address], [place], [address], [facility]3] [facility] 11/14/2023 16:25:25 4 PM Shoulder Kenalog 2cc Injection Unilateral completed Soraya Murphy PA-C [address], [place], [address], [facility] 11/14/2023 16:26:13 Imaging Results Imaging Date Name Status LastModified by Organiz ation Details LastModified Time 11/14/2023 XR, shoulder, 2 or more view completed [facility] [address], [place], [address], 11/14/2023 15:19:53 11/14/2023 XR, shoulder, 2 or more view completed [facility] [address], [place], [address], 11/14/2023 15:19:55 03/15/2024 MRI, shoulder, w/o contrast completed [email or web address] [facility] ([facility]) [address], [place], [address], 03/17/2024 13:05:04 Procedure Notes None recorded. Medical Equipment None Reported. Allergies No known drug allergies Medications Name Sig Start Date Stop Date Status Note LastModified by Organization Details LastModified Time losartan 50 mg tablet TAKE 1 TABLET BY MOUTH EVERY DAY FOR 90 DAYS active Not Available Not Available No t Available lorazepam 0.5 mg tablet TAKE 1 TABLET BY MOUTH EVERY DAY NEEDED FOR ANXIETY active Not Available Not Available No t Available montelukast 10 mg tablet TAKE 1 TABLET BY MOUTH DAILY active Not Available Not Available No t Available hydrochlorothi azide 25 mg tablet TAKE 1 TABLET BY MOUTH EVERY DAY IN THE MORNING FOR 90 DAYS active Not Available Not Available No t Available albuterol sulfate HFA 90 mcg/actuation aerosol inhaler INHALE 2 PUFFS EVERY 6 HOURS NEEDED FOR WHEEZING active Not Available Not Available No t Available fluticasone propionate 50 mcg/actuation nasal spray,suspensi on USE 1 SPRAY IN BOTH NOSTRIL DAILY active Not Available Not Available No t Available escitalopram 20 mg tablet TAKE 1 TABLET BY MOUTH EVERY DAY IN THE MORNING DIRECTED active Not Available Not Available No t Available bupropion HCl XL 150 mg 24 hr tablet, extended release TAKE 1 TABLET BY MOUTH EVERY DAY IN THE MORNING FOR 30 DAYS active Not Available Not Available No t Available trospium 20 mg tablet TAKE 1 TABLET BY MOUTH TWICE A DAY active Not Available Not Available No t Available Vitamin D3 50 mcg (2,000 unit) capsule TAKE 1 CAPSULE BY MOUTH EVERY DAY active Not Available Not Available No t Available Wixela Inhub 500 mcg-50 mcg/dose powder for inhalation INHLAE 1 PUFF TWICE A DAY active Not Available Not Available No t Available Gemtesa 75 mg tablet TAKE 1 TABLET BY MOUTH EVERY DAY active Not Available Not Available No t Available Vitals Date Recorded Body height Body mass index (BMI) Body weight Provider Name and Address Organization Details Last Updated DateTime 02/14/2024 162.56 cm 28.3 kg/m2 46387.74 g dawna gonzalez [facility] 02/14/2024 08:53:38 Date Recorded Body height Body mass index (BMI) Body weight Provider Name and Address Organization Details Last Updated DateTime 04/03/2024 162.56 cm 28.3 kg/m2 27099.74 g Martha Greenberg [facility] 04/03/2024 09:42:28 Date Recorded Body height Body mass index (BMI) Body weight Provider Name and Address Organization Details Last Updated DateTime 04/16/2024 162.56 cm 28.3 kg/m2 08639.74 g TYLER SANCHEZ [facility] 04/16/2024 14:19:22 Social History None recorded. Functional Status None recorded. Mental Status None recorded. Family History Nothing Reported. Medical History Condition Response Allergies/Hayfever N Coronary Artery Disease N Anxiety/Depression Y Breathing or lung disorders Y Emphysema N Nerve Disorders N Thyroid Problems N COPD N Pacemaker N Anemia N Kidney/Bladder Problems Y Vascular Disease N Heart Trouble N Heart Attack (LA) N Gastrointestinal Disease N Cholesterol N Diabetes N Autoimmune disease N Inflammatory Joint disease N Bleeding Disorder N Orthotics N Arthritis N Seizures/Epilepsy N Blood Clot N AIDS/HIV N Congestive Heart Failure (CHF) N Acid Reflux (GERD) N Cancer N Stroke N Asthma N Circulation Problems N Peripheral Vascular Disease N Sleep Apnea Y Hepatitis N Heart Disease N Rheumatoid Arthritis N Arrhythmia N Pulmonary Embolism N Headaches N Fibromyalgia N Hypertension Y Osteoporosis N Gynecological HistoryNo gynecological history recorded. Obstetrics History GPAL:G 0 P 0 0 0 0 Past Encounters Encounter ID Performer Location Encounter Start Date Encounter Closed Date Diagnosis/Indication Diagnosis SNOMED-CT Code Diagnosis ICD10 Code Diagnosis Note [id number] LEROY Mustafa [address] [place] [address] 11/14/2023 14:53:37 12/05/2023 13:18:23 Bilateral shoulder joint pain [id number] 0157771 M25.511 M25.512 Osteoarthr itis of joint of left shoulder region 1765146677 39023 M19.012 Impingemen t syndrome of right shoulder region 0340297559 63204 M75.41 Osteoarthr itis of joint of right shoulder region 1940704538 91555 M19.157 [id number] LEROY Mustafa [address] [facility] [address] 02/14/2024 08:45:36 03/13/2024 13:43:28 Pain of right shoulder joint 9656883377 9213607 M25.511 Osteoarthr itis of joint of left shoulder region 5319245838 13940 M19.012 Impingemen t syndrome of right shoulder region 2755576340 49610 M75.41 Osteoarthr itis of joint of right shoulder region 4190650245 16961 M19.912 [id number] LEROY [facility] [address] [place] [address] 04/03/2024 09:26:34 04/15/2024 12:30:38 Osteoarthritis of joint of left shoulder region 6924484481 62939 M19.012 Impingemen t syndrome of right shoulder region 0098302818 45780 M75.41 Osteoarthr itis of joint of right shoulder region 1429608299 00052 M19.011 Nontraumat ic complete rupture of rotator cuff of right shoulder 1724458826 181874 M75.048 [id number] MD ESTRELLITA [facility] [address] [place] [address] [place] [address] 04/16/2024 14:11:29 05/05/2024 08:22:30 Osteoarthritis of joint of left shoulder region 7119438446 64462 M19.012 Impingemen t syndrome of right shoulder region 7972494059 61927 M75.41 Osteoarthr itis of joint of right shoulder region 3343265834 18710 M19.011 Nontraumat ic complete rupture of rotator cuff of right shoulder 0529624376 542529 M75.121 Health Concerns Section Related Observation LastModified by Organization Detai ls LastModified Time None Recorded Concern Status LastModified by Organization Details LastModified Time None Recorded Advance Directives Directive None Recorded Payers Encounter Date Sequence Insurance Name Policy Number Policy Copeland Covered Member ID Copeland Member ID Guarantor Name 11/14/2023 1 [facility] [id number] 1 Yulia Leija [id number] Yulia Leija 02/14/2024 1 [facility] [id number] 1 Yulia Leija [id number] Yulia Leija 04/03/2024 1 [facility] [id number] 1 Yulia Leija [id number] Yulia Leija 04/16/2024 1 [facility] [id number] Yulia Leija [id number] Yulia Leija Notes Date Note Type Note Provider Name and Address Organization Details Recorded Time 11/14/2023 text/html I am seeing the patient today under the supervision of Dr. Chaudhry who was available but who did not see the patient. HPI: Yulia presents to the office today for an evaluation of her bilateral shoulders. She admits to bilateral shoulder pain, left greater than right, which has been present for quite some time. She denies recent trauma. She is right-hand dominant. She complains of generalized shoulder discomfort which is worse with sleeping at night and overhead reaching. She has noticed progressively worsening left shoulder range of motion. She takes mleh-eqe-lnzkzfw medication intermittently for her pain. She also has a home exercise program that she performs on a regular basis. Denies any neck pain or radicular symptoms. She is here today for treatment recommendations. PMH/PSH/MEDS/ALL/FMH/S OC HX/ROS are reviewed in detail per my medical intake sheet. General Exam: Vital signs are as noted below Mental status: Alert and lucid. Normal insight, affect and grooming. 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 No spasticity or clonus noted. EXAMINATION: The patient is well appearing and in no apparent distress. Alert and oriented x3. Gait is symmetric. {{Right Left*}} shoulder reveals no obvious deformity upon inspection. No edema, erythema, ecchymosis, or lesions. Good muscle bulk without atrophy. Neurovascularly intact. Tenderness is present over the {{supraspinatus insertion proximal bicep tendon AC joint anterior shoulder* posterior shoulder}}. Active range of motion is as follows: Forward flexion 100 degrees, abduction 120 degrees, external rotation 50 degrees, and internal rotation to L1. Positive {{Impingement signs* Speed's crossar m adduction empty can belly press O'Briens}}. Crepitus present with range of motion. Negative Speed's and crossarm adduction. 5/5 strength including rotator cuff and periscapular musculature. No evidence of instability of the shoulder. {{Right* Left}} shoulder reveals no obvious deformity upon inspection. No edema, erythema, ecchymosis, or lesions. Good muscle bulk without atrophy. Neurovascularly intact. Tenderness present over the supraspinatus insertion. ROM slightly decreased at end-range. Impingement signs are positive. Negative Speed's, O'Briens, cross arm adduction. 5/5 strength including rotator cuff and periscapular musculature. No evidence of instability of the shoulder. X-rays ordered, obtained and reviewed at [facility] today include 4 views of bilateral shoulders. Images reveal severe end-stage left shoulder glenohumeral osteoarthritis with subchondral sclerosis, osteophyte formation. Humeral head is slightly high riding. There is AC joint DJD. Type II acromion. On the right there are mild degenerative changes of the glenohumeral joint, AC joint DJD, and a type III acromion. IMPRESSION: Left shoulder end-stage glenohumeral osteoarthritis, right shoulder impingement and mild glenohumeral osteoarthritis PLAN: The patient was thoroughly counseled today regarding their shoulder condition, its natural history, and the treatment options including physical therapy, medication, and a corticosteroid injection. The patient is interested in receiving an injection with corticosteroid. The {{right* left}} shoulder was prepped sterilely and an injection was administered utilizing 80mg of Kenalog and 8cc of 0.25% Marcaine, half into the subacromial space and half intra-articularly. The patient tolerated the procedure well. The {{right left*}} shoulder was prepped sterilely and an intra-articular injection was administered utilizing 40mg of Kenalog and 4cc of 0.25% Marcaine. The patient tolerated the procedure well. Post-injection precautions were discussed. She is aware that the injections can be repeated every 3 months as needed. The prognosis of her left shoulder osteoarthritis was discussed. She has no interest in surgical intervention. If she finds her right shoulder pain is not improved following today's injection she will call the office and I will order a MRI to rule out a rotator cuff tear or other internal derangement. All questions answered. Soraya Murphy PA-C [address] [place] [address] [address] [facility], [place], [address], [facility] 11/14/2023 22:34:47 02/14/2024 text/html I am seeing the patient today under the supervision of Dr. Chaudhry who was available but who did not see the patient. HPI: Yulia presents to the office today for a recheck of her bilateral shoulders. She complains of generalized shoulder discomfort which is worse with sleeping at night and overhead reaching. She has noticed progressively worsening left shoulder range of motion. She takes zsie-ypt-ljtwhci medication intermittently for her pain. She also has a home exercise program that she performs on a regular basis. Denies any neck pain or radicular symptoms. She received cortisone injections at her last visit which provided her with some relief. Despite this she continues to struggle with using her right arm, especially since she is right hand dominant. She is here to discuss treatment options. PMH/PSH/MEDS/ALL/FMH/S OC HX/ROS are reviewed in detail per my medical intake sheet. General Exam: Vital signs are as noted below Mental status: Alert and lucid. Normal insight, affect and grooming. 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 No spasticity or clonus noted. EXAMINATION: The patient is well appearing and in no apparent distress. Alert and oriented x3. Gait is symmetric. {{Right Left*}} shoulder reveals no obvious deformity upon inspection. No edema, erythema, ecchymosis, or lesions. Good muscle bulk without atrophy. Neurovascularly intact. Tenderness is present over the {{supraspinatus insertion proximal bicep tendon AC joint anterior shoulder* posterior shoulder}}. Active range of motion is as follows: Forward flexion 100 degrees, abduction 120 degrees, external rotation 50 degrees, and internal rotation to L1. Positive {{Impingement signs* Speed's crossar m adduction empty can belly press O'Briens}}. Crepitus present with range of motion. Negative Speed's and crossarm adduction. 5/5 strength including rotator cuff and periscapular musculature. No evidence of instability of the shoulder. {{Right* Left}} shoulder reveals no obvious deformity upon inspection. No edema, erythema, ecchymosis, or lesions. Good muscle bulk without atrophy. Neurovascularly intact. Tenderness present over the supraspinatus insertion. ROM slightly decreased at end-range. Impingement signs are positive. Negative Speed's, O'Briens, cross arm adduction. 5/5 strength including rotator cuff and periscapular musculature. No evidence of instability of the shoulder. X-rays ordered, obtained and reviewed at [facility] previously include 4 views of bilateral shoulders. Images reveal severe end-stage left shoulder glenohumeral osteoarthritis with subchondral sclerosis, osteophyte formation. Humeral head is slightly high riding. There is AC joint DJD. Type II acromion. On the right there are mild degenerative changes of the glenohumeral joint, AC joint DJD, and a type III acromion. IMPRESSION: Left shoulder end-stage glenohumeral osteoarthritis, right shoulder impingement and mild glenohumeral osteoarthritis PLAN: The patient was thoroughly counseled today regarding their shoulder condition, its natural history, and the treatment options including physical therapy, medication, and a corticosteroid injection. The patient is interested in receiving an injection with corticosteroid. The {{right* left}} shoulder was prepped sterilely and an injection was administered utilizing 80mg of Kenalog and 8cc of 0.25% Marcaine, half into the subacromial space and half intra-articularly. The patient tolerated the procedure well. The {{right left*}} shoulder was prepped sterilely and an intra-articular injection was administered utilizing 40mg of Kenalog and 4cc of 0.25% Marcaine. The patient tolerated the procedure well. Post-injection precautions were discussed. She is aware that the injections can be repeated every 3 months as needed. The prognosis of her left shoulder osteoarthritis was discussed. She has no interest in surgical intervention. Due to the persistent pain in the right shoulder, I will order a MRI to rule out a rotator cuff tear or other internal derangement. She will return to the office soon after the scan is performed. All questions answered. Soraya Murphy PA-C [address] [place] [address] [address] [facility], [place], [address], [facility] 02/18/2024 21:45:10 04/03/2024 text/html I am seeing the patient today under the supervision of Dr. Painter who was available but who did not see the patient. HPI: Yulia presents to the office today for a recheck of her bilateral shoulders. She complains of generalized shoulder discomfort which is worse with sleeping at night and overhead reaching. She takes [id number] medication intermittently for her pain. She received cortisone injections at her last visit which provided her with some relief. Despite this she continues to struggle with using her right arm, especially since she is right hand dominant. She is here to review her recent MRI. PMH/PSH/MEDS/ALL/FMH/S OC HX/ROS are reviewed in detail per my medical intake sheet. General Exam: Vital signs are as noted below Mental status: Alert and lucid. Normal insight, affect and grooming. 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 No spasticity or clonus noted. EXAMINATION: The patient is well appearing and in no apparent distress. Alert and oriented x3. Gait is symmetric. {{Right Left*}} shoulder reveals no obvious deformity upon inspection. No edema, erythema, ecchymosis, or lesions. Good muscle bulk without atrophy. Neurovascularly intact. Tenderness is present over the {{supraspinatus insertion proximal bicep tendon AC joint anterior shoulder* posterior shoulder}}. Active range of motion is as follows: Forward flexion 100 degrees, abduction 120 degrees, external rotation 50 degrees, and internal rotation to L1. Positive {{Impingement signs* Speed's crossar m adduction empty can belly press O'Briens}}. Crepitus present with range of motion. Negative Speed's and crossarm adduction. 5/5 strength including rotator cuff and periscapular musculature. No evidence of instability of the shoulder. {{Right* Left}} shoulder reveals no obvious deformity upon inspection. No edema, erythema, ecchymosis, or lesions. Good muscle bulk without atrophy. Neurovascularly intact. Tenderness present over the supraspinatus insertion. ROM slightly decreased at end-range. Impingement signs are positive. Negative Speed's, O'Briens, cross arm adduction. 5/5 strength including rotator cuff and periscapular musculature. No evidence of instability of the shoulder. X-rays ordered, obtained and reviewed at [facility] previously include 4 views of bilateral shoulders. Images reveal severe end-stage left shoulder glenohumeral osteoarthritis with subchondral sclerosis, osteophyte formation. Humeral head is slightly high riding. There is AC joint DJD. Type II acromion. On the right there are mild degenerative changes of the glenohumeral joint, AC joint DJD, and a type III acromion. MRI of the right shoulder performed at [place] on 03/15/2024 has been independently reviewed. Images are degraded by motion artifact. There is fluid in the subacromial/subdeltoid space with apparent full-thickness tear of the supraspinatus. Insertional tendinopathy of infraspinatus, mild tendinopathy of subscapularis, tendinopathy of the intra-articular biceps. Moderate glenohumeral and mild acromial clavicular degenerative change. IMPRESSION: Right shoulder supraspinatus tear, biceps tendinopathy, and moderate glenohumeral osteoarthritis. Left shoulder end-stage glenohumeral osteoarthritis. PLAN: The MRI results have been reviewed with the patient along with conservative versus surgical treatment options. The patient feels as if her current right shoulder pain is impacting her daily life. I reviewed the surgical procedure and postoperative recovery of the right right shoulder arthroscopy, rotator cuff repair, biceps tenotomy, subacromial decompression, distal clavicle excision, and intra-articular debridement. I explained to her that this procedure will not improve the pain stemming from her osteoarthritis. Despite this, it does not appear that her osteoarthritis is advanced enough to warrant a reverse total shoulder arthroplasty. She would like to meet with Dr. Mario to discuss surgical options. All questions answered. Soraya Murphy PA-C [address] [facility] [address], [place], [address], [facility] 04/03/2024 10:32:57 04/16/2024 text/html HPI: Yulia presents to the office today for a recheck of her bilateral shoulders. She complains of generalized shoulder discomfort which is worse with sleeping at night and overhead reaching. She takes [id number] medication intermittently for her pain. She received cortisone injections at her last visit which provided her With no significant relief. Despite this she continues to struggle with using her right arm, especially since she is right hand dominant. She is here to review her recent MRI. Has known end-stage osteoarthropathy in the left shoulder with decreased comfort function and range of motion. PMH/PSH/MEDS/ALL/FMH/S OC HX/ROS are reviewed in detail per my medical intake sheet. General Exam: Vital signs are as noted below Mental status: Alert and lucid. Normal insight, affect and grooming. 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 No spasticity or clonus noted. EXAMINATION: The patient is well appearing and in no apparent distress. Alert and oriented x3. Gait is symmetric. {{Right Left*}} shoulder reveals no obvious deformity upon inspection. No edema, erythema, ecchymosis, or lesions. Good muscle bulk without atrophy. Neurovascularly intact. Tenderness is present over the {{supraspinatus insertion proximal bicep tendon AC joint anterior shoulder* posterior shoulder}}. Active range of motion is as follows: Forward flexion 100 degrees, abduction 120 degrees, external rotation 50 degrees, and internal rotation to L1. Positive {{Impingement signs* Speed's crossar m adduction empty can belly press O'Briens}}. Crepitus present with range of motion. Negative Speed's and crossarm adduction. 5/5 strength including rotator cuff and periscapular musculature. No evidence of instability of the shoulder. {{Right* Left}} shoulder reveals no obvious deformity upon inspection. No edema, erythema, ecchymosis, or lesions. Good muscle bulk without atrophy. Neurovascularly intact. Tenderness present over the supraspinatus insertion. ROM slightly decreased at end-range. Impingement signs are positive. Negative Speed's, O'Briens, cross arm adduction. 4/5 strength including rotator cuff and periscapular musculature. No evidence of instability of the shoulder. HEENT- unremarkableHeart -RRR without murmur's, rubs, gallopsAbdomen- soft non-tender, non distended, positive bowel signsLungs clear bilalterallyno skin lesionsintact light touch, distal pulses, and reflex X-rays Previously obtained and reviewed at [facility] previously include 4 views of bilateral shoulders. Images reveal severe end-stage left shoulder glenohumeral osteoarthritis with subchondral sclerosis, osteophyte formation. Humeral head is slightly high riding. There is AC joint DJD. Type II acromion. On the right there are mild degenerative changes of the glenohumeral joint, AC joint DJD, and a type III acromion. MRI of the right shoulder performed at [place] on 03/15/2024 has been independently reviewed. Images are degraded by motion artifact. There is fluid in the subacromial/subdeltoid space with apparent full-thickness tear of the supraspinatus. Insertional tendinopathy of infraspinatus, mild tendinopathy of subscapularis, tendinopathy of the intra-articular biceps. Moderate glenohumeral Osteoarthropathyand mild acromial clavicular degenerative change. IMPRESSION: Right shoulder supraspinatus tear, biceps tendinopathy, and moderate glenohumeral osteoarthritis. Left shoulder end-stage glenohumeral osteoarthritis. PLAN: The MRI results have been reviewed with the patient along with conservative versus surgical treatment options. The patient feels as if her current right shoulder pain is impacting her daily life.Declined repeat trial of corticosteroid injections. Feels like her bilateral shoulder pain is now functionally limiting. She would like to address her primary symptom generator which is her right shoulder. Given the combination of her age, degree of osteoarthropathy and now documented small full-thickness rotator cuff tear I think her most reliable outcome on the right would be with reverse shoulder arthroplasty. Anticipating a positive outcome she will likely ultimately benefit from total shoulder arthroplasty in the left shoulder. Today we had the opportunity to review with the patient the pathoanatomy. Discussed the surgical intervention proposed and its nonoperative alternatives. Reviewed today the risks, benefits, the expectations both of the surgical procedure and again its nonoperative alternatives. After reviewing appropriate treatment options patient would like to move towards scheduling. Informed consent was obtained in the office today. We will work towards scheduling hopefully within the next 30 days.Patient has a supportive home environment and believes this can be done as an outpatient surgical procedure. Patient will benefit from an ultrasound guided preooperative nerve block for post operative pain control. It will limit the anesthetic needs during surgery and will aid in discharge from the PACU in a timely fashion. Anesthesia will be consulted for the procedure. Arc sling for postoperative immobilization The patient has weakness and instability of their extremity which requires stabalization for this semi-rigid/rigid orthosis to improve their funciton. Verbal and written instructions for the use and application of this item were given. Patient was instructed that should the brace result in increased pain, decreased sensation, increased swelling or an overall worsening of their medical condition, to please contact our office immediately. Guy Mario MD [address] [place], [place] [address], [place], [address], [facility] 04/16/2024 14:49:37 OBGyn Episode No OBEpisode recorded.
== END 2024-05-15 14:36 | disposition home or self-care (01) ==
PROVIDERS: PCP Internal Medicine; Visit Provider Internal Medicine Pulmonary Disease
DX: J45.50 Severe persistent asthma, uncomplicated (principal); Z91.09 Other allergy status, other than to drugs and biological substances
CPT/HCPCS: 99214

== ENCOUNTER 2024-09-22 14:01 | Outpatient (AMB) | payer OTHER, SELFPAY ==
--- OUTSIDE RECORDS SUMMARY | 2024-05-08 06:30 | XMS_ITS ---
Author Organization [facility] [address] Address [address] [place] [address] Care Team Providers Care Top Printing Press Operator Name Role Phone PARKER HARTLEY Unavailable [phone] REASON FOR VISIT 6 week f/u Encounters Encounter Location Date Provider Diagnosis [facility] [address] [place] [address] 05/08/2024 PARKER HARTLEY Plan Of Treatment Next Appt Details Provider Name:PARKERGulshan HARTLEY, 10/07/2024 10:30:00 AM, [address] , [place], [address], Progress Notes * Yulia DENNIS MDOB: 9 (74 yo F)Acc No.[id number]:05/08/2024 Patient: Gino INIGUEZYulia Provider: Zamzam PALENCIA PA-C :1950 A ge:73 Y S ex:Female Date:05/08/2024 Address:[address] [place] [id number] Subjective: * Chief Complaints: * 1 . 6 week f/u. * Medical History: Objective: * Vitals: Assessment: Plan: * Treatment: * Images: Billing Information: * Visit Code: * Procedure Codes: * Electronic signature of SANTOSH HARTLEY PA-C on 09/22/2024 at 03:25 PM EDT Sign off status: Pending * Provider: Zamzam PALENCIA PA-C Date: 0 05/08/2024 Generated for Akash villasenor/Yo/Rob on: 0 09/22/2024 03:25 PM EDT
[2024-09-22 14:36] VITALS: BP 140/82; PULSE 76; O2SAT 93; BMI 28.0
--- NOTE | 2024-09-22 14:36 | MHC.OFFVIS ---
Vital Signs 09/22/24 14:36 Height 5 ft 5 in Weight 168 lb BMI 28.0 BP 140/82 H Blood Pressure Location Rt brachial Position Sitting Pulse 76 Pulse Source Pulse Oximeter Pulse Oximetry (%) 93 Oxygen Delivery Method Room Air Intake Visit Reasons: copd Allergies No Known Allergies Allergy (Verified 05/15/24 14:19) HPI HPI copd: Details: 74-year-old lady nonsmoker, followed for mild CINDY intolerant of CPAP, dyspnea on exertion, diastolic dysfunction, environmental allergies, and moderate persistent asthma.? She continues to use Advair 500, albuterol MDI, Singulair, and Flonase with good control of her symptoms.? She had negative cardiac workup.? Patient was tried on Xolair, however she derived no symptomatic benefit and discontinued it. Her symptoms at baseline are well controlled on Wixela, duo nebs, and albuterol MDI. She denies recent excaerbations. [facility] Social History (Updated 04/05/23 @ 13:42 by Yluia Carrasco LPN) Patient Tobacco Use Status: Former Tobacco user Tobacco use type: Cigarette Review of Systems Const Denies daytime sleepiness, Denies excessive sweating, Denies fatigue, Denies fever(s), Denies lethargy, Denies malaise, Denies night sweats, Denies snoring and Denies weight loss Eyes Denies blurry vision and Denies itchy eyes ENT Denies nasal congestion, Denies post nasal drip, Denies sinus pain, Denies sinus pressure and Denies other ( Thrush) Card Denies chest pain, Denies pedal edema, Denies dyspnea, Denies orthopnea and Denies paroxysmal nocturnal dyspnea Resp Denies cough, Denies hemoptysis, Denies excessive phlegm production, Denies dyspnea, Denies snoring and Denies wheezing GI Denies abdominal pain and Denies heartburn Musc Denies myalgias, Denies arthralgias and Denies joint swelling Skin/Breast Denies rash Neuro Denies memory loss and Denies seizure-like activity Psych Denies abnormal sleep pattern, Denies anxiety and Denies memory loss Endo Denies excessive sweating, Denies fatigue and Denies heat intolerance Joe/Lymph Denies easy bruising Aller/Immun Denies itchy eyes, Denies seasonal rhinorrhea and Denies wheezing Physical Exam Vital Signs: Last Vital Signs Pulse 76 09/22/24 14:36 BP 140/82 H 09/22/24 14:36 Pulse Ox 93 09/22/24 14:36 Oxygen Delivery Method Room Air 09/22/24 14:36 BMI result Body Mass Index 28.0 Const General: no acute distress and alert Nutritional Appearance: not obese Orientation/consciousness: Other orientation findings ( oriented) HEENT Head: Yes atraumatic Eyes General: appearance normal, both eyes and all related structures Sclerae: sclerae normal EOM: EOMs intact bilaterally Neck Neck: Yes supple Lymphatic: no lymphadenopathy noted Resp Effort & Inspection: normal respiratory effort and no use of accessory muscles Auscultation: clear to auscultation bilaterally Cardio Rate: regular rate Rhythm: regular rhythm Heart sounds: no gallops, no murmurs and no rubs Skin General skin exam: other ( warm) Extrem General: No clubbing, No cyanosis and No edema Assessment & Plan Assessment & Plan (1) Severe persistent asthma: Code(s): J45.50 - Severe persistent asthma, uncomplicated Category: Medical Plan: Well controlled on current regimen of Wixela, duo nebs, and albuterol MDI. Continue current regimen. (2) Environmental allergies: Code(s): Z91.09 - Other allergy status, other than to drugs and biological substances Category: Medical Plan: Well controlled on Singulair and Flonase. Continue current regimen. Coding Level of Care Code Est Pt Level 4 (69956) Diagnoses Severe persistent asthma J45.50 Environmental allergies Z91.09
--- OUTSIDE RECORDS SUMMARY | 2024-09-22 15:25 | XMS_ITS | Continuity of Care Document ---
Author Organization OLINDA Dae [facility], ESTRELLITA Parson PT Address [address] [place] [address] Care Team Providers Care Medical Videographer Name Role Phone MAXIME PADGETT Primary Care Provider Assessment Encounter Date Assessment Date Assessment LastModified by Organization Details LastModified Time 09/22/2024 09/22/2024 A: Pt shoulder ROM improved this session. Mild soreness at end range stretching. She continue to have good coretta c AROM supine flexion and ER in seated position. Pt initiated AROM flexion in standing position without px, increased fatigue half way through the exercise. P: Cont c POC, progress per MD protocol Begin Wk 2 Wks 2-3: PROM Wk 3: wean sling Wks 3-4: AAROM Wks 4-5: AROM Wk 8: PS/RC strengthening [email or web address] Not available 09/22/2024 11:49:55 Plan of Treatment Reminders Order Date Submit Date Provider Last Modified By Organization Details Last Modified Time Details Appointments PT FOLLOW -UP 025 11:00AM Mckenna Odonnell [employer] Not available Not available Not available PT FOLLOW -UP 025 11:30AM Mckenna Odonnell [employer] Not available Not available Not available PT FOLLOW -UP 025 11:00AM Mckenna Odonnell [employer] Not available Not available Not available POST OP 10 025 10:40AM Guy Mario MD Not available Not available Not available PT FOLLOW -UP 025 11:30AM Mckenna Odonnell [employer] Not available Not available Not available PT FOLLOW -UP 025 11:30AM Mckenna Odonnell [employer] Not available Not available Not available PT FOLLOW -UP 025 11:30AM Mckenna Odonnell, [employer] Not available Not available Not available Lab None record ed. Referral None record ed. Procedures None record ed. Surgeries None record ed. Imaging None record ed. Medication Orders None record ed. Patient TargetsNo targets recorded. Patient InstructionsNo instructions recorded. Reason for Referral None Reported. Problems Name Problem SNOMED Code Status Onset Date Resolution Date Notes Provider Name and Address Organization Details Recorded Time Pain of right shoulder joint 5653982364203 9100 Active 2023 dawna garcia [facility] 4 09:48:41 Osteoarthri tis of joint of left shoulder region 5576649664076 08 Active 2024 Soraya Murphy PA-C [address], [place], [address], [facility] 5 17:01:52 Impingement syndrome of right shoulder region 6129522537862 02 Active 2024 Guy Mario MD [address], [place], [address], [facility] 5 13:30:22 Nontraumati c complete rupture of rotator cuff of right shoulder 0015959097612 100 Active 2024 Guy Mario MD [address], [place], [address], [facility] 5 13:30:22 Osteoarthri tis of joint of right shoulder region 1266953609975 00 Active 2024 Soraya Murphy PA-C [address], [place], [address], [facility] 5 09:55:57 Rupture of rotator cuff of right shoulder 1382107014976 9103 Active 2024 JUAN garcia [facility] 5 15:26:40 Problem Notes None recorded. Procedures Surgical History Date Name Laterality Status Provider Name and Address Organization Details Recorded Time 5 60644 Therapeutic Exercise (1:1) completed Mckenna Odonnell, [employer] [address], [place], [address], [facility] 09/22/2024 09:09:49 5 57432: Hot or Cold Pack completed Mckenna Odonnell, [employer] [address], [place], [address], [facility] 09/22/2024 09:09:49 5 75696: Manual therapy completed Mckenna Odonnell, [employer] [address], [place], [address], [facility] 09/22/2024 09:09:49 5 42811 Therapeutic Exercise (1:1) completed Mckenna Odonnell, [employer] [address], [place], [address], [facility] 09/16/2024 15:52:26 5 39123: Hot or Cold Pack completed Mckenna Odonnell, [employer] [address], [place], [address], [facility] 09/16/2024 15:52:26 5 10865: Manual therapy completed Mckenna Odonnell, [employer] [address], [place], [address], [facility] 09/16/2024 15:52:26 5 29755 Therapeutic Exercise (1:1) completed Mckenna Odonnell, [employer] [address], [place], [address], [facility] 09/10/2024 12:17:36 5 46480: Hot or Cold Pack completed Mckenna Odonnell, [employer] [address], [place], [address], [facility] 09/10/2024 12:17:36 5 16308: Manual therapy completed Mckenna Odonnell, [employer] [address], [place], [address], [facility] 09/10/2024 12:17:36 5 07109 Therapeutic Exercise (1:1) completed Mckenna Odonnell PTA [address], [place], [address], [facility] 09/09/2024 12:01:08 5 37856: Hot or Cold Pack completed Mckenna Odonnell [employer] [address], [place], [address], [facility] 09/09/2024 12:01:07 5 47583: Manual therapy completed Mckenna Odonnell PTA [address], [place], [address], [facility] 09/09/2024 12:01:08 5 94858 Therapeutic Exercise (1:1) completed Mckenna Odonnell PTA [address], [place], [address], [facility] 09/02/2024 18:57:07 5 10797: Hot or Cold Pack completed Mckenna Odonnell PTA [address], [place], [address], [facility] 09/02/2024 18:57:07 5 82741: Manual therapy completed Mckenna Odonnell PTA [address], [place], [address], [facility] 09/02/2024 18:57:07 5 07658 Therapeutic Exercise (1:1) completed Mckenna Odonnell [employer] [address], [place], [address], [facility] 09/01/2024 11:53:55 5 52283: Hot or Cold Pack completed Mckenna Odonnell [employer] [address], [place], [address], [facility] 08/29/2024 13:08:39 5 40352: Manual therapy completed Mckenna Odonnell PTA [address] [facility], [place], [address], [facility] 09/01/2024 11:53:38 5 76774 Therapeutic Exercise (1:1) completed Lacy Caal DPT [address], [place], [address], [facility] 08/28/2024 14:01:38 5 29893: Hot or Cold Pack completed Lacy Caal DPT [address], [place], [address], [facility] 08/28/2024 13:08:13 5 35553: Manual therapy completed Lacy Caal DPT [address], [place], [address], [facility] 08/28/2024 13:08:32 5 43446 Therapeutic Exercise (1:1) completed Lacy Caal DPT [address], [place], [address], [facility] 08/25/2024 11:54:20 5 26375: Low complexity PT Eval completed Lacy Caal DPT [address], [place], [address], [facility] 08/25/2024 11:54:21 5 Sports Shoulder 4&1 completed Soraya Murphy PA-C [address], [place], [address], [facility] 08/19/2024 17:02:13 4 Sports Shoulder completed Soraya Murphy PA-C [address], [place], [address], [facility] 02/18/2024 21:43:33 4 PM Shoulder Kenalog 2cc Injection Unilateral completed Soraya Murphy PA-C [address], [place], [address], [facility] 02/18/2024 21:43:51 4 Sports Shoulder completed Soraya Murphy PA-C [address], [place], [address], [facility] 11/14/2023 16:25:25 4 PM Shoulder Kenalog 2cc Injection Unilateral completed Soraya Murphy PA-C [address], [place], [address], [facility] 11/14/2023 16:26:13 Imaging Results None recorded. Procedure Notes None recorded. Medical Equipment None Reported. Allergies No known drug allergies Medications Name Sig Start Date Stop Date Status Note LastModified by Organization Details LastModified Time losartan 50 mg tablet TAKE 1 TABLET BY MOUTH EVERY DAY active Not Available Not Available No t Available azithromyci n 250 mg tablet TAKE 2 TABLETS BY MOUTH TODAY, THEN TAKE 1 TABLET DAILY FOR 4 DAYS DIRECTED 08/19 completed Not Available Not Available Not Available prednisone 20 mg tablet TAKE 2 TABLETS BY MOUTH EVERY DAY active Not Available Not Available No t Available lorazepam 0.5 mg tablet TAKE 1 TABLET BY MOUTH EVERY DAY NEEDED FOR ANXIETY active Not Available Not Available No t Available montelukast 10 mg tablet TAKE 1 TABLET BY MOUTH DAILY active Not Available Not Available No t Available hydrochloro thiazide 25 mg tablet TAKE 1 TABLET BY MOUTH EVERY DAY IN THE MORNING FOR 90 DAYS active Not Available Not Available No t Available albuterol sulfate HFA 90 mcg/actuati on aerosol inhaler INHALE 2 PUFFS EVERY 6 HOURS NEEDED FOR WHEEZING active Not Available Not Available No t Available fluticasone propionate 50 mcg/actuati on nasal spray,suspe nsion USE 1 SPRAY IN BOTH NOSTRIL DAILY active Not Available Not Available No t Available naproxen 500 mg tablet TAKE 1 TABLET BY MOUTH TWICE A DAY 08/19 completed Not Available Not Available Not Available oxycodone 5 mg tablet TAKE 1-2 TABLETS EVERY 4 HOURS NEEDED . 7 DAY RX. 08/19 completed Not Available Not Available Not Available escitalopra m 10 mg tablet TAKE 1 TABLET BY MOUTH EVERY DAY active Not Available Not Available No t Available escitalopra m 20 mg tablet TAKE 1 TABLET BY [...] Available Not Available No t Available Vitals None Recorded Social History None recorded. Functional Status None recorded. Mental Status None recorded. Family History Nothing Reported. Medical History Condition Response Allergies/Hayfever N Coronary Artery Disease N Anxiety/Depression Y Breathing or lung disorders Y Emphysema N Nerve Disorders N Thyroid Problems N COPD N Pacemaker N Anemia N Kidney/Bladder Problems Y Vascular Disease N Heart Trouble N Heart Attack ([place]) N Gastrointestinal Disease N Cholesterol N Diabetes N Autoimmune disease N Bleeding Disorder N Inflammatory Joint disease N Orthotics N Arthritis N Seizures/Epilepsy N [...] SNOMED-CT Code Diagnosis ICD10 Code Diagnosis Note [id number] SAVANNA Mclaughlin PT [address] [place] [address] 08/25/2024 10:58:26 08/25/2024 12:01:07 Surgical follow-up [id number] Z47.1 Z96.962 [id number] SAVANNA Mclaughlin PT [address] [place] [address] 08/28/2024 12:47:40 08/28/2024 14:01:59 Surgical follow-up [id number] Z47.1 Z96.940 [id number] Mckenna Odonnell, [employer] [facility] - [facility] [address] [place] [address] 09/01/2024 10:45:46 09/02/2024 08:55:22 Surgical follow-up [id number] Z47.1 Z96.954 [id number] Mckenna Odonnell, [employer] - [facility] [address] [place] [address] 09/04/2024 11:44:48 09/05/2024 10:47:08 Surgical follow-up [id number] Z47.1 Z96.459 [id number] Mckenna Odonnell, [employer] [facility] - [facility] [address] [place] [address] 09/09/2024 11:46:35 09/10/2024 08:23:40 Surgical follow-up [id number] Z47.1 Z96.029 [id number] Mckenna Odonnell, [employer] - [facility] [address] [place] [address] 09/11/2024 11:43:13 09/11/2024 13:43:06 Surgical follow-up [id number] Z47.1 Z96.875 [id number] Mckenna Odonnell, [employer] [facility] - [facility] [address] [place] [address] 09/17/2024 11:21:38 09/17/2024 13:11:46 Surgical follow-up [id number] Z47.1 Z96.372 [id number] Mckenna Odonnell [employer] - [facility] [address] [place] [address] 09/22/2024 10:47:27 09/22/2024 11:51:10 Surgical follow-up [id number] Z47.1 Z96.611 Health Concerns Section Related Observation LastModified by Organization Detai ls LastModified Time None Recorded Concern Status LastModified by Organization Details LastModified Time None Recorded Payers Encounter Date Sequence Insurance Name Policy Number Policy Copeland Covered Member ID Copeland Member ID Guarantor Name 09/22/2024 1 [facility] [id number] 1 Yulia Leija [id number] Yulia Leija Notes Date Note Type Note Provider Name and Address Organization Details Recorded Time 09/22/2024 text/html Pt reported 3-4/10 px coming in this morning. She stated her px increases c certain motion. Mckenna Odonnell, [employer] [address] [facility] [address], [place], [address], [facility] [place] 09/22/2024 11:51:10 OBGyn Episode No OBEpisode recorded.
== END 2024-09-22 14:49 | disposition home or self-care (01) ==
LOC: HO.HPS 14:02
PROVIDERS: PCP Internal Medicine; Visit Provider Internal Medicine Pulmonary Disease
DX: J45.50 Severe persistent asthma, uncomplicated (principal); Z91.09 Other allergy status, other than to drugs and biological substances
CPT/HCPCS: 99214

== ENCOUNTER 2025-01-26 11:11 | Outpatient (AMB) | payer OTHER, SELFPAY ==
--- NOTE | 2025-01-26 11:14 | MHC.OFFVIS ---
Vital Signs 01/26/25 11:17 Height 5 ft 5 in BP 132/84 Blood Pressure Location Rt brachial Position Sitting Pulse 96 Pulse Source Pulse Oximeter Pulse Oximetry (%) 92 Comment Patient refused weight Intake Visit Reasons: COPD Allergies No Known Allergies Allergy (Verified 01/26/25 11:18) HPI HPI COPD: Details: 74-year-old lady nonsmoker, followed for mild CINDY intolerant of CPAP, dyspnea on exertion, diastolic dysfunction, environmental allergies, and moderate persistent asthma.? She continues to use Advair 500, albuterol MDI, Singulair, and Flonase with good control of her symptoms.? She had negative cardiac workup.? Patient was tried on Xolair, however she derived no symptomatic benefit and discontinued it. Her symptoms at baseline are well controlled on Wixela, duo nebs, and albuterol MDI. She denies recent excaerbations. No significant changes since prior. [facility] Social History (Updated 04/05/23 @ 13:42 by Yulia Carrasco LPN) Patient Tobacco Use Status: Former Tobacco user Tobacco use type: Cigarette Review of Systems Const Denies daytime sleepiness, Denies excessive sweating, Denies fatigue, Denies fever(s), Denies lethargy, Denies malaise, Denies night sweats, Denies snoring and Denies weight loss Eyes Denies blurry vision and Denies itchy eyes ENT Denies nasal congestion, Denies post nasal drip, Denies sinus pain, Denies sinus pressure and Denies other ( Thrush) Card Denies chest pain, Denies pedal edema, Denies dyspnea, Denies orthopnea and Denies paroxysmal nocturnal dyspnea Resp Denies cough, Denies hemoptysis, Denies excessive phlegm production, Denies dyspnea, Denies snoring and Denies wheezing GI Denies abdominal pain and Denies heartburn Musc Denies myalgias, Denies arthralgias and Denies joint swelling Skin/Breast Denies rash Neuro Denies memory loss and Denies seizure-like activity Psych Denies abnormal sleep pattern, Denies anxiety and Denies memory loss Endo Denies excessive sweating, Denies fatigue and Denies heat intolerance Joe/Lymph Denies easy bruising Aller/Immun Denies itchy eyes, Denies seasonal rhinorrhea and Denies wheezing Physical Exam Vital Signs: Last Vital Signs Pulse 96 01/26/25 11:17 BP 132/84 01/26/25 11:17 Pulse Ox 92 01/26/25 11:17 Const General: no acute distress and alert Nutritional Appearance: not obese Orientation/consciousness: Other orientation findings ( oriented) HEENT Head: Yes atraumatic Eyes General: appearance normal, both eyes and all related structures Sclerae: sclerae normal EOM: EOMs intact bilaterally Neck Neck: Yes supple Lymphatic: no lymphadenopathy noted Resp Effort & Inspection: normal respiratory effort and no use of accessory muscles Auscultation: clear to auscultation bilaterally Cardio Rate: regular rate Rhythm: regular rhythm Heart sounds: no gallops, no murmurs and no rubs Skin General skin exam: other ( warm) Extrem General: No clubbing, No cyanosis and No edema Assessment & Plan Assessment & Plan (1) Severe persistent asthma: Code(s): J45.50 - Severe persistent asthma, uncomplicated Category: Medical Plan: Well controlled on Wixela, duo nebs, and albuterol MDI. Continue current regimen. (2) Environmental allergies: Code(s): Z91.09 - Other allergy status, other than to drugs and biological substances Category: Medical Plan: Well controlled on Flonase and Singulair. Continue current regimen. Coding Level of Care Code Est Pt Level 4 (05255) Diagnoses Severe persistent asthma J45.50 Environmental allergies Z91.09
[2025-01-26 11:17] VITALS: BP 132/84; PULSE 96; O2SAT 92
--- OUTSIDE RECORDS SUMMARY | 2025-01-26 23:16 | XMS_ITS | Continuity of Care Document ---
Author Organization [facility], [place] [facility] [place] Clinical Address [address] [place] [address] Care Team Providers Care Small Equipment Operator Name Role Phone MAXIME PADGETT Primary Care Provider [phone] Assessment No assessment recorded. Plan of Treatment Reminders Order Date Submit Date Provider Last Modified By Organization Details Last Modified Time Details Appointments NEW PATIENT 15 2024 03:15P M Selene perla MD Not available Not available Not available Lab None recorde d. Referral None recorde d. Procedures None recorde d. Surgeries None recorde d. Imaging None recorde d. Medication Orders None recorde d. Patient TargetsNo targets recorded. Patient InstructionsNo instructions recorded. Reason for Referral None Reported. Problems Name Problem SNOMED Code Status Onset Date Resolution Date Notes Provider Name and Address Organization Details Recorded Time Pain of right shoulder joint 9666669653703 9100 Active 2023 dawna gonzalez [facility] 4 09:48:41 Osteoarthri tis of joint of left shoulder region 1081528547211 08 Active 2024 Soraya Murphy PA-C [address], [place], [address], [facility] 5 17:01:52 Impingement syndrome of right shoulder region 5631465827283 02 Active 2024 Guy Mario MD [address], [place], [address], [facility] 5 13:30:22 Nontraumati c complete rupture of rotator cuff of right shoulder 1682571147586 100 Active 2024 Guy Mario MD [address], [place], [address], [facility] 13:30:22 Osteoarthri tis of joint of right shoulder region 9624997941445 00 Active 2024 Soraya Murphy PA-C [address], [place], [address], [facility] 09:55:57 Rupture of rotator cuff of right shoulder 4605897144010 9103 Active 2024 JUAN CARRERO [facility] 15:26:40 Problem Notes None recorded. Procedures Surgical History Date Name Laterality Status Provider Name and Address Organization Details Recorded Time 14580 Therapeutic Exercise (1:1) completed Mckenna Odonnell PTA [address], [place], [address], [facility] 09/22/2024 09:09:49 5 30403: Hot or Cold Pack completed Mckenna Odonnell PTA [address], [place], [address], [facility] 09/22/2024 09:09:49 5 88110: Manual therapy completed Mkcenna Odonnell PTA [address], [place], [address], [facility] 09/22/2024 09:09:49 5 91816 Therapeutic Exercise (1:1) completed Mckenna Odonnell PTA [address], [place], [address], [facility] 09/16/2024 15:52:26 5 13967: Hot or Cold Pack completed Mckenna Odonnell PTA [address], [place], [address], [facility] 09/16/2024 15:52:26 5 35102: Manual therapy completed Mckenna Odonnell, MAGAZINE KEEPER [address], [place], [address], [facility] 09/16/2024 15:52:26 5 56336 Therapeutic Exercise (1:1) completed Mckenna Odonnell, MAGAZINE KEEPER [address], [place], [address], [facility] 09/10/2024 12:17:36 5 27275: Hot or Cold Pack completed Mckenan Odonnell, MAGAZINE KEEPER [address], [place], [address], [facility] 09/10/2024 12:17:36 5 38392: Manual therapy completed Mckenna Odonnell, MAGAZINE KEEPER [address], [place], [address], [facility] 09/10/2024 12:17:36 5 01797 Therapeutic Exercise (1:1) completed Mckenna Odonnell, MAGAZINE KEEPER [address], [place], [address], [facility] 09/09/2024 12:01:08 5 14122: Hot or Cold Pack completed Mckenna Odonnell, MAGAZINE KEEPER [address], [place], [address], [facility] 09/09/2024 12:01:07 5 33956: Manual therapy completed Mckenna Odonnell, MAGAZINE KEEPER [address], [place], [address], [facility] 09/09/2024 12:01:08 5 12351 Therapeutic Exercise (1:1) completed Mckenna Odonnell, MAGAZINE KEEPER [address], [place], [address], [facility] 09/02/2024 18:57:07 5 73022: Hot or Cold Pack completed Mckenna Odonnell PTA [address], [place], [address], [facility] 09/02/2024 18:57:07 5 16456: Manual therapy completed Mckenna Odonnell PTA [address], [place], [address], [facility] 09/02/2024 18:57:07 5 65973 Therapeutic Exercise (1:1) completed Mckenna Odonnell PTA [address], [place], [address], [facility] 09/01/2024 11:53:55 5 83157: Hot or Cold Pack completed Mckenna Odonnell PTA [address], [place], [address], [facility] 08/29/2024 13:08:39 5 79433: Manual therapy completed Mckenna Odonnell PTA [address], [place], [address], [facility] 09/01/2024 11:53:38 5 64837 Therapeutic Exercise (1:1) completed Lacy Caal DPT [address], [place], [address], [facility] 08/28/2024 14:01:38 5 71574: Hot or Cold Pack completed Lacy Caal DPT [address], [place], [address], [facility] 08/28/2024 13:08:13 5 07559: Manual therapy completed Lacy Caal DPT [address], [place], [address], [facility] 08/28/2024 13:08:32 5 76791 Therapeutic Exercise (1:1) completed Lacy Caal DPT [address], [place], [address], [facility] 08/25/2024 11:54:20 5 44263: Low complexity PT Eval completed Lacy Caal DPT [address] [facility], [place], [address], [facility] 08/25/2024 11:54:21 5 Sports Shoulder 4&1 completed Soraya Murphy PA-C [address] [facility], [place], [address], [facility] 08/19/2024 17:02:13 4 Sports Shoulder completed Soraya Murphy PA-C [address] [facility], [place], [address], [facility] 02/18/2024 21:43:33 4 PM Shoulder Kenalog 2cc Injection Unilateral completed Soraya Murphy PA-C [address] [facility], [place], [address], [facility] 02/18/2024 21:43:51 4 Sports Shoulder completed Soraya Murphy PA-C [address] [facility], [place], [address], [facility] 11/14/2023 16:25:25 4 PM Shoulder Kenalog 2cc Injection Unilateral completed Soraya Murphy PA-C [address] [facility], [place], [address], [facility] 11/14/2023 16:26:13 Imaging Results None recorded. Procedure Notes None recorded. Medical Equipment None Reported. Allergies No known drug allergies Medications Name Sig Start Date Stop Date Status Note LastModified by Organization Details LastModified Time losartan 50 mg tablet TAKE 1 TABLET BY MOUTH EVERY DAY active Not Available Not Available No t Available amoxicillin 500 mg capsule 4 pills 1 hour prior to procedure 2024 active Not Available Not Available Not Avai lable azithromyci n 250 mg tablet TAKE 2 [...] BY MOUTH EVERY DAY IN THE MORNING active Not Available Not Available No t Available furosemide 20 mg tablet TAKE 1 TABLET BY MOUTH EVERY DAY active Not Available Not Available No t Available albuterol sulfate HFA 90 mcg/actuati on aerosol inhaler INHALE 2 PUFF ORALLY EVERY 6 HOURS NEEDED FOR FOR WHEEZING active Not Available Not Available No t Available fluticasone propionate 50 mcg/actuati on nasal spray,suspe nsion USE 1 SPRAY INTRANASA LLY DAILY active Not Available Not Available No [...] and Address Organization Details Last Updated DateTime 01/07/2025 162.56 cm 28.3 kg/m2 95401.74 g Brennan Terrell [place] [facility] [place] [facility] 01/07/2025 15:24:11 Social History None recorded. Functional Status Question Answer Note LastModified by Organizat ion Details LastModified Time How many times per week do you consume alcohol? 5-7 times per week [id number] Information not available 09/24/2024 What is your level of alcohol consumption? Moderate Information not available 09/24/2024 Mental Status None recorded. Family History Nothing Reported. Medical History Condition Response Allergies/Hayfever N Coronary Artery Disease N Anxiety/Depression Y Breathing or lung disorders Y Emphysema N Nerve Disorders N Thyroid Problems N COPD N Pacemaker N Anemia N Kidney/Bladder Problems Y Vascular Disease N Heart Trouble N Heart Attack (DC) N Gastrointestinal Disease N Cholesterol N Diabetes [...] Diagnosis SNOMED-CT Code Diagnosis ICD10 Code Diagnosis IMO Codes Diagnosis Note [id number] LEROY Campbell [facility] EB ROJAS [facility] [place] [address] 01/07/2025 15:16:20 01/15/2025 08:32:15 History of operative procedure on shoulder [id number] Z96.619 [id number] Health Concerns Section Related Observation LastModified by Organization Detai ls LastModified Time None Recorded Concern Status LastModified by Organization Details LastModified Time None Recorded Payers Encounter Date Sequence Insurance Name Policy Number Policy [employer] Covered Member ID [employer] Member ID Guarantor Name 01/07/[address] [place] [address] [id number] Yulia M Heladio [id number] Yulia Leija Notes Date Note Type Note Provider Name and Address Organization Details Recorded Time 01/07/2025 text/html I am seeing the patient today under the supervision of Dr. Mario who was available but who did not see the patient. Procedure: Right shoulder reverse total shoulder arthroplasty by Dr. Mario Date of Surgery: 08/11/2024 History of Present Illness: Yulia is here for routine postoperative follow-up evaluation status post reverse shoulder arthroplasty on the right. She is approximately 5 months out from surgery. She reports no issues or problems with regard to the shoulder. She is having persistent numbness and tingling in the median nerve distribution of her operative right hand. This involves the index and middle fingers. She reports that there has been slight improvement but continues to find the symptoms quite annoying with picking up and grasping objects. Clinical Exam: The patient is well-appearing in no apparent distress. Incision(s) are benign, well-appearing and soft without erythema, redness or warmth. Excellent range of motion 160 degrees of forward flexion, 140 degrees abduction, external rotation 75 degrees, internal rotation to L2. Excellent strength with elevation, external rotation and internal rotation. Elbow, wrist and hand move well. Office Cashier strength intact. There is clinical numbness with palpation of the digits. Phalen's maneuver increases wrist and finger pain. Assessment: Doing very well status post reverse total shoulder arthroplasty. Possible carpal tunnel syndrome secondary to upper extremity shoulder surgery Physical Therapy Status: Completed Medication Prescriptions: Prescription provided today for amoxicillin for dental work. Plan/Follow up: Overall patient doing remarkably well with regard to her shoulder. Recommended follow-up in 7 months at her annual visit. Repeat radiographs at that visit. Recommended a consultation with one of her hand specialists for evaluation and treatment of possible carpal tunnel secondary to recent shoulder surgery. All questions answered to her satisfaction. - Medical Practice speech recognition clinical laboratory medical director software was used to create portions of this document. An attempt at proofreading has been made to minimize errors. Please call for corrections. Rico Cordero PA-C [address] [place], [place] [address] [address], [place], [address], [facility] 01/07/2025 15:45:47 OBGyn Episode No OBEpisode recorded.
--- OUTSIDE RECORDS SUMMARY | 2025-01-26 23:17 | XMS_ITS | Data Portability ---
Author Organization OLINDA Dae Blakely [facility], [facility] [place] Address [address] [place] [address] Care Team Providers Care Principal Associate Name Role Phone PADGETTMAXIME GATES Primary Care Provider Assessment Encounter Date Assessment Date Assessment LastModified by Organization Details LastModified Time 09/11/2024 09/11/2024 A: Pt shoulder ROM improved in all plane. Decreased end range px c passive stretching. Pt experienced increased fatigue c AROM exercises today, but was able to completed the exercises without increased in px. P: Cont c POC, progress per MD protocol Begin Wk 2 Wks 2-3: PROM Wk 3: wean sling Wks 3-4: AAROM Wks 4-5: AROM Wk 8: PS/RC strengthening Not available 09/11/2024 13:03:10 09/17/2024 09/17/2024 A: Pt PROM scaption and ER slightly decreased today secondary to increased soreness and discomfort at end range stretching. She continue to have good coretta c AROM exercises. Pt tired to initiate sl ER but was unable to lay on her side due to L shoulder px. P: Cont c POC, progress per MD protocol Begin Wk 2 Wks 2-3: PROM Wk 3: wean sling Wks 3-4: AAROM Wks 4-5: AROM Wk 8: PS/RC strengthening Not available 09/17/2024 12:28:22 09/22/2024 09/22/2024 A: Pt shoulder ROM improved [...] Wks 4-5: AROM Wk 8: PS/RC strengthening Not available 09/22/2024 11:49:55 Plan of Treatment Reminders Order Date Submit Date Provider Last Modified By Organization Details Last Modified Time Details Appointments NEW PATIENT 15 2024 03:15P M Selene perla MD Not available Not available Not available Lab None recorde d. Referral physica l therapi st referra l - S/P Reverse TSA , AAROM week 3-4, AROM week 4-5, RC/Ps/D eltoid strengt h week 8, try incline board at week 6-8 tp improve overhea d functio n. 2024 025 cstamand Not available 10/09/2024 15:48:15 Procedures None recorde d. Surgeries None recorde d. Imaging None recorde d. Medication Orders None recorde d. Patient TargetsNo targets recorded. Patient InstructionsNo instructions recorded. Reason for Referral Physical Therapist Referral for History of reverse prosthetic total arthroplasty of right shoulder S/P Reverse TSA, AAROM week 3-4, AROM week 4-5, RC/Ps/Deltoid strength week 8, try incline board at week 6-8 tp improve overhead function. Referring Physician: Guy Mario, Orthopedic Surgery, Encounter Date: 09/30/2024 Results Created Date Observation Date Name Description Value Unit Range Abnormal Flag Note LastModifiedBy Organization Detail LastModifiedTime 08/20/19 25 08/19/2024 XR, kye ramirez, 2 or more view http:/ [email or web address] ?Encry pted=s hAaTro YD8dLq bEUv6g %2BXZw aYqtaq 0bqfl% 2Fg9IQ a4ajBk vP9nXo QUaueC m3YtLR FvZlgJ JJ8mAn HZtai3 4b8394 AC0Kla H%2BFV KOmKiQ trMwF INTERFACE [facility] [address], [place], [address], 08/19/2024 09:19:39 08/20/19 25 08/19/2024 kye CANELA, 2 or more view http:/ [email or web address] ?Encry pted=s hAaTro YD8dLq bEUv6g %2BXZw aYqtaq 0bqfl% 2Fg9IQ a4ajBk vP9nXo QUaueC m3YtLR FvZlgJ JJ8mAn HZtai3 8n5264 AC0Kla H%2BFV KOmKiQ trMwF INTERFACE [facility] [address], [place], [address], 08/19/2024 09:19:40 Result Notes None recorded. Problems Name Problem SNOMED Code Status Onset Date Resolution Date Notes Provider Name and Address Organization Details Recorded Time Pain of right shoulder joint 7326208850051 9100 Active 2023 dawna garcia [facility] 4 09:48:41 Osteoarthri tis of joint of left shoulder region 8980436148679 08 Active 2024 Soraya Murphy PA-C [address], [place], [address], [facility] 5 17:01:52 Impingement syndrome of right shoulder region 5121659382269 02 Active 2024 Guy Mario MD [address], [place], [address], [facility] 5 13:30:22 Nontraumati c complete rupture of rotator cuff of right shoulder 5405051233531 100 Active 2024 Guy Mario MD [address], [place], [address], [facility] 5 13:30:22 Osteoarthri tis of joint of right shoulder region 8887910156278 00 Active 2024 Soraya Murphy PA-C [address], [place], [address], [facility] 09:55:57 Rupture of rotator cuff of right shoulder 6068229136746 9103 Active 2024 IONADEEDEE BURNETTBROOK [facility] 15:26:40 Problem Notes None recorded. Procedures Surgical History Date Name Laterality Status Provider Name and Address Organization Details Recorded Time 5 45683 Therapeutic Exercise (1:1) completed Mckenna Odonnell PTA [address], [place], [address], [facility] 09/22/2024 09:09:49 5 85045: Hot or Cold Pack completed Mckenna Odonnell PTA [address], [place], [address], [facility] 09/22/2024 09:09:49 5 37926: Manual therapy completed Mckenna Odonnell PTA [address], [place], [address], [facility] 09/22/2024 09:09:49 5 63181 Therapeutic Exercise (1:1) completed Mckenna Odonnell PTA [address], [place], [address], [facility] 09/16/2024 15:52:26 5 00566: Hot or Cold Pack completed Mckenna Odonnell PTA [address], [place], [address], [facility] 09/16/2024 15:52:26 5 86312: Manual therapy completed Mckenna Odonnell PTA [address], [place], [address], [facility] 09/16/2024 15:52:26 5 51347 Therapeutic Exercise (1:1) completed Mckenna Odonnell PTA [address], [place], [address], [facility] 09/10/2024 12:17:36 5 08783: Hot or Cold Pack completed Mckenna Odonnell, LENA [address], [place], [address], [facility] 09/10/2024 12:17:36 5 34335: Manual therapy completed Mckenna Odonnell PTA [address], [place], [address], [facility] 09/10/2024 12:17:36 5 31607 Therapeutic Exercise (1:1) completed Mckenna Odonnell PTA [address], [place], [address], [facility] 09/09/2024 12:01:08 5 85457: Hot or Cold Pack completed Mckenna Odonnell PTA [address], [place], [address], [facility] 09/09/2024 12:01:07 5 17228: Manual therapy completed Mckenna Odonnell PTA [address], [place], [address], [facility] 09/09/2024 12:01:08 5 20309 Therapeutic Exercise (1:1) completed Mckenna Odonnell PTA [address], [place], [address], [facility] 09/02/2024 18:57:07 5 89205: Hot or Cold Pack completed Mckenna Odonnell PTA [address], [place], [address], [facility] 09/02/2024 18:57:07 5 48646: Manual therapy completed Mckenna Odonnell POULTRY RAISER [address], [place], [address], [facility] 09/02/2024 18:57:07 5 00374 Therapeutic Exercise (1:1) completed Mckenna Odonnell PTA [address], [place], [address], [facility] 09/01/2024 11:53:55 5 09462: Hot or Cold Pack completed Mckenna Odonnell POULTRY RAISER [address], [place], [address], [facility] 08/29/2024 13:08:39 5 02518: Manual therapy completed Mckenna Odonnell POULTRY RAISER [address], [place], [address], [facility] 09/01/2024 11:53:38 5 74066 Therapeutic Exercise (1:1) completed Lacy Caal DPT [address], [place], [address], [facility] 08/28/2024 14:01:38 5 03764: Hot or Cold Pack completed Lacy Caal DPT [address], [place], [address], [facility] 08/28/2024 13:08:13 5 43563: Manual therapy completed Lacy Caal DPT [address], [place], [address], [facility] 08/28/2024 13:08:32 5 81969 Therapeutic Exercise (1:1) completed Lacy Caal DPT [address], [place], [address], [facility] 08/25/2024 11:54:20 5 14153: Low complexity PT Eval completed JAROD MclaughlinT [address], [place], [address], [facility] 08/25/2024 11:54:21 5 Sports Shoulder 4&1 completed Soraya Murphy PA-C [address], [place], [address], [facility] 08/19/2024 17:02:13 4 Sports Shoulder completed Soraya Murphy PA-C [address], [place], [address], [facility] 02/18/2024 21:43:33 4 PM Shoulder Kenalog 2cc Injection Unilateral completed Soraya Murphy PA-C [address], [place], [address], [facility] 02/18/2024 21:43:51 4 Sports Shoulder completed Soraya Murphy PA-C [address], [place], [address], [facility] 11/14/2023 16:25:25 4 PM Shoulder Kenalog 2cc Injection Unilateral completed Soraya Murphy PA-C [address], [place], [address], [facility] 11/14/2023 16:26:13 Imaging [...] and Address Organization Details Last Updated DateTime 09/30/2024 162.56 cm 28.3 kg/m2 86698.74 g JUAN CARRERO [facility] 09/30/2024 10:58:51 Date Recorded Body height Body mass index (BMI) Body weight Provider Name and Address Organization Details Last Updated DateTime 01/07/2025 162.56 cm 28.3 kg/m2 54982.74 g Brennan Terrell [facility] 01/07/2025 15:24:11 Social History None recorded. Functional Status Question Answer Note LastModified by Organizat ion Details LastModified Time How many times per week do you consume alcohol? 5-7 times per week [email or web address] Information not available 09/24/2024 What is your level of alcohol consumption? Moderate [email or web address] Information not available 09/24/2024 Mental Status None recorded. Family History Nothing Reported. Medical History Condition Response Allergies/Hayfever N Coronary Artery Disease N Anxiety/Depression Y Breathing or lung disorders Y Emphysema N Nerve Disorders N Thyroid Problems N COPD N Pacemaker N Anemia N Kidney/Bladder Problems Y Vascular Disease N Heart Trouble N Heart Attack (CA) N Gastrointestinal Disease N Cholesterol N Diabetes [...] ICD10 Code Diagnosis IMO Codes Diagnosis Note [id number] LEROY Mustafa 2nd floor [address] [facility] [place] [address] 11/14/2023 14:53:37 12/05/2023 13:18:23 Bilateral shoulder joint pain 3366784049 1157893 M25.511 M25.512 Osteoarthr itis of joint of left shoulder region 3108530632 65069 M19.012 Impingemen t syndrome of right shoulder region 0692340789 27769 M75.41 Osteoarthr itis of joint of right shoulder region 8813746523 76976 M19.005 [id number] LEROY Mustafa [address] [facility] [place] [address] 02/14/2024 08:45:36 03/13/2024 13:43:28 Pain of right shoulder joint 7744966171 1967021 M25.511 178621 Osteoarthr itis of joint of left shoulder region 9760247862 06743 M19.012 Impingemen t syndrome of right shoulder region 1204670486 80616 M75.41 Osteoarthr itis of joint of right shoulder region 9254762878 94028 M19.046 [id number] LEROY Mustafa 3rd floor [address] [place] [address] 04/03/2024 09:26:34 04/15/2024 12:30:38 Osteoarthritis of joint of left shoulder region 5592155122 82318 M19.012 Impingemen t syndrome of right shoulder region 0983107898 19550 M75.41 Osteoarthr itis of joint of right shoulder region 1412734286 63387 M19.011 Nontraumat ic complete rupture of rotator cuff of right shoulder 6205073308 436210 M75.121 [id number] MD [facility] [address] [place] [address] 04/16/2024 14:11:29 05/05/2024 08:22:30 Osteoarthritis of joint of left shoulder region 8017085345 71974 M19.012 Impingemen t syndrome of right shoulder region 6791305223 82361 M75.41 Osteoarthr itis of joint of right shoulder region 8596057935 20907 M19.011 Nontraumat ic complete rupture of rotator cuff of right shoulder 3363245899 376624 M75.121 60572399 [id number] [facility]Y [facility] [address] [place] [address] 08/19/2024 09:03:04 08/25/2024 10:49:53 Postoperative visit 354297346 Z48.89 63161013 Osteoarthr itis of joint of right shoulder region 8703588672 M19.089 7571316 Osteoarthr itis of joint of left shoulder region 1074795270 73457 M19.848 5370811 [id number] SAVANNA Mclaughlin [facility] [address] [place] [address] 08/25/2024 10:58:26 08/25/2024 12:01:07 Surgical follow-up 540913541 Z47.1 Z96.611 22665170 [id number] SAVANNA Mclaughlin PT [address] [place] [address] 08/28/2024 12:47:40 08/28/2024 14:01:59 Surgical follow-up 852574737 Z47.1 Z96.611 46760704 [id number] Mckenna Blas, POULTRY RAISER [facility] [address] [place] [address] 09/01/2024 10:45:46 09/02/2024 08:55:22 Surgical follow-up 458248678 Z47.1 Z96.611 87910749 [id number] Mckenna Odonnell, POULTRY RAISER [facility] [address] [place] [address] 09/04/2024 11:44:48 09/05/2024 10:47:08 Surgical follow-up 855342208 Z47.1 Z96.611 13052147 [id number] Mckenna Odonnell, POULTRY RAISER [facility] [address] [place] [address] 09/09/2024 11:46:35 09/10/2024 08:23:40 Surgical follow-up 945449103 Z47.1 Z96.611 [id number] [id number] Mckenna Odonnell, POULTRY RAISER [facility] [address] [place] [address] 09/11/2024 11:43:13 09/11/2024 13:43:06 Surgical follow-up 893256628 Z47.1 Z96.611 86392664 [id number] Mckenna Odonnell, POULTRY RAISER [facility] [address] [place] [address] 09/17/2024 11:21:38 09/17/2024 13:11:46 Surgical follow-up [id number] Z47.1 Z96.611 60875927 [id number] Mckenna Odonnell, POULTRY RAISER [facility] [address] [place] [address] 09/22/2024 10:47:27 09/22/2024 15:54:07 Surgical follow-up 828511398 Z47.1 Z96.611 50100121 [id number] MD ESTRELLITA [facility] 2nd floor [address] [place] [address] 09/30/2024 10:22:20 10/09/2024 15:48:14 History of reverse prosthetic total arthroplasty of right shoulder 4669880432 6838125 Z96.611 54049027 [id number] [facility] [address] [place] [address] 01/07/2025 15:16:20 01/15/2025 08:32:15 History of operative procedure on shoulder 555860908 Z96.619 [id number] Health Concerns Section Related Observation LastModified by Organization Detai ls LastModified Time None Recorded Concern Status LastModified by Organization Details LastModified Time None Recorded Advance Directives Directive None Recorded Payers Insurance Date Sequence Insurance Name Policy Number Policy Copeland Covered Member ID Copeland Member ID Guarantor Name 01/15/2025 1 [facility] [id number] 1 Yulia Leija [id number] Yulia Leija Notes Date Note Type Note Provider Name and Address Organization Details Recorded Time 09/11/2024 text/html Pt reported increased soreness today form previous therapy session. 0/10 px. Mckenna Odonnell PTA [address] [facility], [place], [address], [facility] 09/11/2024 13:04:50 09/17/2024 text/html Pt reported increased soreness B shoulder today especially when moving her arm and putting her bra on. Mckenna Odonnell PTA [address], [place], [address], [facility] 09/17/2024 12:28:48 09/22/2024 text/html Pt reported 3-4/10 px coming in this morning. She stated her px increases c certain motion. Mckenna Odonnell PTA [address], [place], [address], [facility] 09/22/2024 11:51:10 09/30/2024 text/html The patient returns today doing well 8 weeks status post a right, Reverse total shoulder arthroplasty. Has been compliant with postoperative restrictions, protocols and physical therapy. Patient weaned from sling at week 2. At that point, initiated physical therapy. Is currently working on active elevation. PFMSH and ROS has been reviewed, updated, and is located in the patient's chart. On physical examination, the patient presents today out of the sling. Surgical incision site is benign. Anterior, middle, and posterior deltoid are intact. Minimal atrophy. Axillary nerve function is intact. Passive manipulation of the shoulder reveals no crepitus. Active-assisted elevation to approximately 125, external rotation approximately 45, internal rotation to 20. Able to support the arm with antigravity strength once positioned overhead. No shoulder instability. No warmth, no redness nor erythema. No evidence for infection. No lymphadenopathy. Radiographs are deferred. IMPRESSION: Doing well status post recent total shoulder arthroplasty. Will continue to follow a standard protocol. Will continue physical therapy. Discussed the importance of daily stretching and strengthening to achieve the best long-term outcome from the total shoulder arthroplasty. While they understand the majority of the recovery will likely be completed by month 3, patients who have been diligent with an ongoing stretching and strengthening program continue to report improvements in their total shoulder arthroplasty and shoulder function for 6 months. The patient continue to follow a standard protocol. Referred back to physical therapy until discharged to a home exercise program. Will continue to use anti-inflammatories p.r.n. Narcotic refills are not required. Updated work notes given. Recheck at approximately 4 months postoperatively. Patient has been pursuing physical therapy at [facility] somewhat unhappy with her interactions there. She will make a switch to [facility] and see if her therapy experience is better. Has known left shoulder osteoarthropathy that she understands could ultimately benefit from surgical reconstruction and she is hoping to avoid that. Guy Mario MD [address] [place] [address] [address], [place], [address], [facility] 09/30/2024 11:32:25 01/07/2025 text/html I am seeing the patient [...] rotation. Elbow, wrist and hand move well. Tutoring Assistant strength intact. There is clinical numbness with [...] her satisfaction. - Medical Practice speech recognition health care facilities inspector software was used to create portions of this document. An attempt at proofreading has been made to minimize errors. Please call for corrections. Rico Cordero PA-C [address] [place] [address] [address], [place], [address], [facility] 01/07/2025 15:45:47 OBGyn Episode No OBEpisode recorded.
== END 2025-01-26 11:32 | disposition home or self-care (01) ==
LOC: HO.HPS 11:11
PROVIDERS: PCP Internal Medicine; Visit Provider Internal Medicine Pulmonary Disease
DX: J45.50 Severe persistent asthma, uncomplicated (principal); Z91.09 Other allergy status, other than to drugs and biological substances
CPT/HCPCS: 99214